=== PATIENT | female | born 1950 | race Asian ===

== ENCOUNTER 2019-12-26 21:17 | Emergency (ER) | payer BC, SELFPAY ==
[2019-12-26 21:28] VITALS: BP 153/61; PULSE 67; RESP 16; TEMP 36.4; O2SAT 98
--- NOTE | 2019-12-26 22:02 | ED.GENADULT ---
HPI - General Adult General Chief complaint: Skin/Abscess/Foreign Body Stated complaint: whole body itching Time Seen by Provider: 12/26/19 21:20 History of Present Illness HPI narrative: Patient is a 69-year-old female who presents ER with complaint of skin itching. For last 2 weeks she has had significant itching to her upper extremities/chest/back. Associate with a dry scaling rash that is prominent in her antecubital fossa as well as other areas of the extremities. She has excoriations. She was initially started on hydroxyzine. After that did not work she used a Medrol Dosepak. Last dose was today and the itching came back worse. No fevers or chills or sweats. No bug bites. She uses Tide as a laundry detergent. She denies any other use of lotions with perfumes or topical dyes. No known allergies. Related Data Allergies Allergy/AdvReac Type Severity Reaction Status Date / Time No Known Allergies Allergy Verified 12/26/19 21:31 Review of Systems Review of Systems: All systems reviewed & are unremarkable except as noted in HPI and below Constitutional: Constitutional: Denies chills, Denies fever(s) and Denies weakness ENT: Denies nasal congestion and Denies sore throat Integumentary/Breasts: Skin/Breast: Reports pruritus, Reports erythema, Reports rash and Denies skin ulcer PMFSH Past Medical History Medical History (Updated 12/26/19 @ 22:19 by Yandel Carrillo MD) Healthy female adult Surgical History Surgical History (Updated 12/26/19 @ 22:13 by Yandel Carrillo MD) No history of previous surgery Social History Social History (Updated 12/26/19 @ 22:13 by Yandel Carrillo MD) Smoking status: Never smoker Gender identity (if verbalized by the patient): Female Exam Narrative: Exam Narrative: GENERAL: Well-appearing, well-nourished, and in no acute distress. HEAD: Normocephalic, atraumatic. ENT: Mucous membranes moist.. CHEST: Clear to auscultation. No respiratory distress. HEART: Regular rate and rhythm. Normal peripheral pulses. EXTREMITIES: Normal range of motion. No edema. SKIN: Warm, dry. Dry scaling maculopapular rash across upper extremities/chest and back. Excoriations noted. No pustules or vesicles. NEURO: Alert and oriented x3. Course Course Emergency Course: In the recommend patient avoid detergents and fabric softeners that may contain dyes or fragrances. Recommend switching. Free clear type brand. Also recommend daily allergy pill with Pepcid and topical Aquaphor. Recommend follow-up with dermatology. Vital Signs Vital signs: Vital Signs Temperature 97.5 F L 12/26/19 21:28 Pulse Rate 67 12/26/19 21:28 Respiratory Rate 16 12/26/19 21:28 Blood Pressure 153/61 H 12/26/19 21:28 Pulse Oximetry 98 12/26/19 21:28 Temperature 97.5 F L 12/26/19 21:28 Pulse Rate 67 12/26/19 21:28 Respiratory Rate 16 12/26/19 21:28 Blood Pressure 153/61 H 12/26/19 21:28 Pulse Oximetry 98 12/26/19 21:28 Medical Decision Making Vital Signs Vital Signs: Vital Signs Temperature 97.5 F L 12/26/19 21:28 Pulse Rate 67 12/26/19 21:28 Respiratory Rate 16 12/26/19 21:28 Blood Pressure 153/61 H 12/26/19 21:28 Pulse Oximetry 98 12/26/19 21:28 Temperature 97.5 F L 12/26/19 21:28 Pulse Rate 67 12/26/19 21:28 Respiratory Rate 16 12/26/19 21:28 Blood Pressure 153/61 H 12/26/19 21:28 Pulse Oximetry 98 12/26/19 21:28 Discharge Plan Discharge Clinical Impression: Atopic contact dermatitis Patient Disposition: Home, Self-Care Condition: Stable Instructions: Eczema (ED) Additional Instructions: Return the ER if you have chest pain or shortness of breath, you cannot breathe, you cannot swallow, you have additional concerns. Please stop using any laundry detergents or fabric softeners that contain dye or fragrances. You should try brand such as All Free and clear. Additionally, apply Aquaphor ointment to extremities t
== END 2019-12-26 22:43 | disposition home or self-care (01) ==
PROVIDERS: Emergency Provider Emergency Medicine
DX: L20.9 Atopic dermatitis, unspecified (principal)
CPT/HCPCS: 99283

== ENCOUNTER 2023-11-16 11:00 | Emergency (ER) | payer MEDICARE, SELFPAY ==
--- NOTE | ~2023-11-16 | XR_ITS ---
EXAMINATION: XR humerus LT DATE: 11/16/2023 12:29 INDICATION: Left arm pain. Fall. TECHNIQUE: 2 views of left humerus were obtained. COMPARISON: None. FINDINGS: There is a fracture of greater tuberosity of proximal left humerus with 4 mm displacement. Joint spaces are normal. IMPRESSION: 1. One-part fracture of proximal left humerus. Reviewed, dictated and finalized at location A.
[2023-11-16 11:08] VITALS: BP 122/73; PULSE 72; RESP 17; TEMP 36.3; O2SAT 96
--- NOTE | 2023-11-16 12:52 | ED.FALL ---
HPI - Fall General Chief Complaint: Fall Stated Complaint: fall, arm pain Time Seen by Provider: 11/16/23 12:28 History of Present Illness [facility] Narrative: This is a 73-year-old otherwise healthy female who presents to the emergency department for a chief complaint of left arm pain. She states that she was caring things around yesterday when she accidentally tripped and fell forward. She landed striking her left shoulder against the ground. She had significant amount of bruising after this happened and limited range of motion with difficulty abducting and flexing the shoulder forward. She has good range of motion of the elbow knee able to flex and extend with good combat engineer strength and equal sensation, strength. Denies any head trauma or loss of consciousness. No nausea, vomiting, chest pain, shortness a breath, abdominal pain, back pain. Related Data Allergies Allergy/AdvReac Type Severity Reaction Status Date / Time No Known Allergies Allergy Verified 12/26/19 21:31 Review of Systems Review of Systems: As reviewed above in HPI [facility] Past Medical History Medical History Healthy female adult Surgical History Surgical History No history of previous surgery Social History Social History Smoking status: Never smoker Gender identity (if verbalized by the patient): Female Exam Narrative: GENERAL: [Well-appearing, well-nourished, and in no acute distress.] HEAD: [Normocephalic, atraumatic.] EYES: [PERRLA and EOMI.] ENT: Nares clear, no rhinorrhea or epistaxis. Mucous membranes moist. NECK: Supple. CHEST: [Clear to auscultation. No respiratory distress.] HEART: [Regular rate and rhythm]. No murmur heard. [Normal peripheral pulses.] ABDOMEN: [Soft, nondistended], [nontender], [No rigidity or guarding] EXTREMITIES: The left shoulder has a small minor deformity in the left lateral aspect of the proximal humerus. No skin breakdown or open fracture. There is a significant amount of bruising on the inner aspect of her left upper extremity is the arm. Full range of motion of the elbow and wrist. Able to oppose each digit and raise her thumb. Full combat engineer strength bilaterally. Abduction and flexion at the shoulder is limited secondary to pain. No spinal tenderness. No bony tenderness along the elbow. SKIN: Warm, dry, no rash. NEURO: [No focal deficits]. Alert and oriented [x3.] No sensory deficits in the left upper extremity. PSYCH: [Normal mood and affect.] Course Vital Signs Vital signs: Vital Signs Temperature 36.3 C L 11/16/23 11:08 Pulse Rate 72 11/16/23 11:08 Respiratory Rate 17 11/16/23 11:08 Blood Pressure 122/73 11/16/23 11:08 Pulse Oximetry 96 11/16/23 11:08 Oxygen Delivery Room Air 11/16/23 11:08 Temperature 36.3 C L 11/16/23 11:08 Pulse Rate 72 11/16/23 11:08 Respiratory Rate 17 11/16/23 11:08 Blood Pressure 122/73 11/16/23 11:08 Pulse Oximetry 96 11/16/23 11:08 Oxygen Delivery Room Air 11/16/23 11:08 Procedures Orthopedic Splinting/Casting Injury #1: Splinting/Casting Date: 11/16/23 Splinting/Casting Time: 13:25 Side: left Upper Extremity Injury Location: shoulder Upper Extremity Immobilizer: sling/shoulder immobilizer and sugar tong splint Splint: customized in ED Pre-Procedure Neuro Vascular Exam: normal Post-Procedure Neuro Vascular Exam: normal Additional Comments: Intact neurovascular before and after by my assessment. MDM - Fall MDM Narrative Medical decision making narrative: This is a 73-year-old female presenting for a ground level mechanical fall with left-sided shoulder trauma. She sustained an obvious injury to her left upper extremity with limited range of motion and a potential closed fract
[2023-11-16] MEDS: HYDROcodone/acetaminophen (*CRX) 5-325 MG TABLET 1 TAB PO (13:03)
--- NOTE | 2023-11-16 13:26 | PC.NURSE ---
Dr. Cerda at bedside, confirming splint placement.
[2023-11-16 13:49] VITALS: BP 124/77; PULSE 68; RESP 18; TEMP 36.5; O2SAT 100
== END 2023-11-16 13:49 | disposition home or self-care (01) ==
PROVIDERS: Emergency Provider Student in an Organized Health Care Education/Training Program
DX: S42.202A Unspecified fracture of upper end of left humerus, initial encounter for closed fracture (principal); W18.30XA Fall on same level, unspecified, initial encounter
CPT/HCPCS: 24500; 73060; 99284; A4565; A9270

== ENCOUNTER 2023-11-27 13:49 | Outpatient (CLI) | payer MEDICARE, SELFPAY ==
--- NOTE | ~2023-11-27 | XR_ITS ---
XR shoulder LT min 2V Ordering provider: Gab Young MD History: . F/UP Displaced fracture of greater tuberosity . Comparison: November 16, 2023 FINDINGS: BONES: Fracture in the greater tuberosity of the humerus. No other fractures seen. JOINT SPACES: The acromioclavicular joint is normal. The glenohumeral joint is normal. SOFT TISSUES: Normal. IMPRESSION: Fracture of the greater tuberosity of the humerus unchanged from previous examination. Reviewed, dictated and finalized at location A. IMPRESSION: Fracture of the greater tuberosity of the humerus unchanged from previous exami [facility].
== END 2023-11-27 13:50 | disposition home or self-care (01) ==
PROVIDERS: Visit Provider Orthopaedic Surgery
DX: S42.252D Displaced fracture of greater tuberosity of left humerus, subsequent encounter for fracture with routine healing (principal); X58.XXXD Exposure to other specified factors, subsequent encounter
CPT/HCPCS: 73030

== ENCOUNTER 2023-12-25 12:27 | Outpatient (CLI) | payer MEDICARE, SELFPAY ==
--- NOTE | ~2023-12-25 | XR_ITS ---
XR shoulder LT min 2V Ordering provider: Gab Young MD History: . S42.253A - Displaced fracture of greater tuberosity of un... . Comparison: November 27, 2023 FINDINGS: BONES: Healing fracture in the humerus greater tuberosity is noted. JOINT SPACES: The acromioclavicular joint is normal. The glenohumeral joint is normal. SOFT TISSUES: Normal. IMPRESSION: Healing fracture in the humeral greater tuberosity. No change in alignment. Reviewed, dictated and finalized at location A.
== END 2023-12-25 12:28 | disposition home or self-care (01) ==
LOC: ANHIMG 12:36
PROVIDERS: Visit Provider Orthopaedic Surgery
DX: S42.252D Displaced fracture of greater tuberosity of left humerus, subsequent encounter for fracture with routine healing (principal); X58.XXXD Exposure to other specified factors, subsequent encounter
CPT/HCPCS: 73030

== ENCOUNTER 2024-10-28 11:12 | Inpatient (IN) | payer MEDICARE, SELFPAY ==
[2024-10-28] VITALS (10 sets, daily range): BP systolic 124–143; BP diastolic 45–72; PULSE 54–75; RESP 14–18; TEMP 36.4–37; O2SAT 92–99; BMI 24.6
--- NOTE | ~2024-10-28 | XR_ITS ---
EXAMINATION: XR knee LT 3V DATE: 10/28/2024 13:27 INDICATION: Possible tibial fracture. Fall TECHNIQUE: 3 images of the left knee were obtained COMPARISON: Left femur x-ray 10/28/2024 FINDINGS: No fracture. No dislocation. Tiny suprapatellar effusion. Mild soft tissue swelling about the left knee. Mild tricompartment joint space narrowing. IMPRESSION: 1. No fracture identified. Reviewed, dictated and finalized at location A. IMPRESSION: 1. No fracture identified.
--- NOTE | ~2024-10-28 | XR_ITS ---
EXAMINATION: XR surgery orthopedic DATE: 10/30/2024 13:46 INDICATION: Left hip intertrochanteric nailing TECHNIQUE: 4 fluoroscopic images of the left hip and proximal to mid femur were obtained during procedure performed by Dr. Patel. Radiologist was not present for the imaging or procedure. The amount of fluoroscopy time used during this procedure was 2.4 minutes. Total DAP was 6.1997 mGym^2. COMPARISON: None. FINDINGS: Previously seen the basicervical fracture of the proximal femurs. Reduced to essentially anatomic alignment. Fractures fixed with an antegrade intramedullary magi with femoral neck and with compression screw and distal interlocking screw. Mild to moderate osteoarthritis at the left hip. No other fractures identified. IMPRESSION: 1. . Fluoroscopy utilized during internal fixation of an basicervical fracture of the proximal femur which is in essentially anatomic alignment Reviewed, dictated and finalized at location A.
--- NOTE | ~2024-10-28 | XR_ITS ---
EXAMINATION: XR hip LT 2V w AP pelvis DATE: 10/28/2024 12:29 INDICATION: Fall TECHNIQUE: 3 images of the left hip were obtained COMPARISON: None. FINDINGS: Mildly displaced intertrochanteric fracture of the proximal left femur. Questionable nondisplaced subcapital fracture of the left femoral head. However, the finding may be artifactual due to overlapping structures or a vascular channel. Bones appear to be. Mild degenerative change in the hips. IMPRESSION: 1. Mildly displaced intertrochanteric fracture of the proximal left femur. Consider a CT for further assessment. 2. Questionable nondisplaced subcapital fracture of the left femoral head. A CT is recommended for further assessment. Reviewed, dictated and finalized at location A. IMPRESSION: 1. Mildly displaced intertrochanteric fracture of the proximal left femur. Cons ider a CT for further assessment. 2. Questionable nondisplaced subcapital fracture of the left femoral head. A CT is recommended for further assessment.
--- NOTE | ~2024-10-28 | XR_ITS ---
EXAM/ PROCEDURE: XR wrist LT min 3V - 10/28/2024 12:18 CDT HISTORY: 74 years old Female with fall COMPARISON: None. TECHNIQUE: Three view(s) FINDINGS/ IMPRESSION: Acute displaced fracture of the distal radius with posterior displacement of the distal fracture segment. Minimally displaced fracture of the ulnar styloid process. Surrounding soft tissue swelling. Joint space narrowing, subchondral sclerosis, subchondral cyst formation and osteophyte formation, compatible with moderate osteoarthritis. Reviewed, dictated and finalized at location A.
--- NOTE | ~2024-10-28 | CT_ITS ---
EXAM: CT pelvis wo con - 10/28/2024 13:05 CDT History: 74 years old Female with fall TECHNIQUE: Multidetector CT of the pelvis without contrast. Coronal and sagittal reformats were also provided for review. Automatic exposure control was used for this study. COMPARISON: None Available. FINDINGS: MUSCULOSKELETAL: Multilevel degenerative changes of the spine. Minimally displaced intertrochanteric fracture of the left femur with mild anterior angulation. URINARY BLADDER: Within normal limits. VISUALIZED BOWEL: No abnormal bowel wall thickening. No obstruction. REPRODUCTIVE ORGANS: Within normal limits. MESENTERY/PERITONEAL CAVITY: No free fluid or pneumoperitoneum. LYMPH NODES: No abdominal or pelvic lymphadenopathy. ABDOMINAL WALL: Within normal limits. VASCULATURE: Within normal limits. IMPRESSION: Minimally displaced intertrochanteric fracture of the left femur with mild anterior angulation. Reviewed, dictated and finalized at location A. IMPRESSION: Minimally displaced intertrochanteric fracture of the left femur with mild ante rior angulation.
--- NOTE | ~2024-10-28 | XR_ITS ---
EXAMINATION: XR wrist LT 2V DATE: 10/28/2024 15:21 INDICATION: Post splint placement TECHNIQUE:2 images of the left wrist were obtained. COMPARISON: 10/28/2024 FINDINGS: Casting material is present which obscures fine bony detail. Soft tissue swelling about the left wrist. Mildly displaced avulsion fracture of the ulnar styloid process. Mildly displaced and comminuted intra-articular fracture of the distal left radius. Alignment is near-anatomic. IMPRESSION: 1. Fractures of the left radius and left ulna as detailed above. Reviewed, dictated and finalized at location A.
--- NOTE | ~2024-10-28 | XR_ITS ---
EXAM/PROCEDURE: XR chest 1V - 10/28/2024 12:25 CDT HISTORY: 74 years old Female with PAIN FALL TECHNIQUE: Two view(s) of the chest. COMPARISON: None available. FINDINGS: LUNGS/ PLEURA: No focal consolidation. No appreciable pneumothorax or large pleural effusion. HEART/ MEDIASTINUM: Heart appears normal in size. BONES: Degenerative changes. OTHER: Visualized upper abdomen is unremarkable. IMPRESSION: No acute process. Reviewed, dictated and finalized at location A. IMPRESSION: No acute process.
--- NOTE | ~2024-10-28 | XR_ITS ---
EXAMINATION: XR surgery orthopedic DATE: 10/30/2024 15:32 INDICATION: ORIF left wrist fracture TECHNIQUE: 3 fluoroscopic images of the left wrist were obtained during procedure performed by Dr. Patel. Radiologist was not present for the imaging or procedure. The amount of fluoroscopy time used during this procedure was 6.9 minutes. Total DAP was 2.219 mGym^2. COMPARISON: 10/28/2024 FINDINGS: Interval reduction to near-anatomic alignment of an extra articular fracture of the distal left radius neutral tilt of the distal articular surface. The fracture is fixed with a volar T plate and screws. Unfixed avulsion fracture across the base of the ulnar styloid process which remains in essentially anatomic alignment. 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 There is suggestion of some cystic change at the ulnar side of the proximal lunate which could represent sequela of prior ulnocarpal impaction. IMPRESSION: 1. Fluoroscopy utilized during internal fixation of an extra articular fracture of the distal left radius which is now in near-anatomic alignment. 2. Unfixed ulnar styloid avulsion fracture which remains in essentially anatomic alignment. Reviewed, dictated and finalized at location A. IMPRESSION: 1. Fluoroscopy utilized during internal fixation of an extra articular fracture of the distal left radius which is now in near-anatomic alignment. 2. Unfixed ulnar styloid avulsion fracture which remains in essentially anatomi c alignment.
--- NOTE | ~2024-10-28 | XR_ITS ---
Clinical history:Fall EXAM:X-ray femur left minimum 2 views TECHNIQUE:4 images of the left femur were obtained Comparisons:Left hip x-ray 10/28/2024 FINDINGS: Mildly displaced intertrochanteric fracture of the proximal left femur. Questionable nondisplaced subcapital fracture of the left femoral head. However, the finding may be artifactual due to overlapping structures or a vascular channel. Bones appear osteopenic. Mild degenerative change in the left hip. Oblique lucency in the proximal left tibia. Differential includes vascular channel or acute nondisplaced fracture. Correlate for point tenderness. Consider dedicated x-rays of the left knee for further assessment. IMPRESSION: 1. Mildly displaced intertrochanteric fracture of the proximal left femur. Consider a CT for further assessment. 2. Questionable nondisplaced subcapital fracture of the left femoral head. A CT is recommended for further assessment. 3. Oblique lucency in the proximal left tibia. Differential includes vascular channel or acute nondisplaced fracture. Correlate for point tenderness. Consider dedicated x-rays of the left knee for further assessment. Reviewed, dictated and finalized at location A. IMPRESSION: 1. Mildly displaced intertrochanteric fracture of the proximal left femur. Cons ider a CT for further assessment. 2. Questionable nondisplaced subcapital fracture of the left femoral head. A CT is recommended for further assessment. 3. Oblique lucency in the proximal left tibia. Differential includes vascular c hannel or acute nondisplaced fracture. Correlate for point tenderness. Consider dedicated x-rays of the left knee for further assessment.
--- NOTE | ~2024-10-28 | CT_ITS ---
EXAM: CT brain wo con - 10/28/2024 13:05 CDT History: 74 years old Female with fall COMPARISON: None available. PROCEDURE: CT of the head without contrast. Axial, sagittal and coronal reformatted planes were evaluated. Automatic exposure control was used for this study. FINDINGS: Evaluation is limited secondary to artifact caused by the patient's motion. BRAIN PARENCHYMA: No acute hemorrhage. No mass effect or herniation. Preciado-white matter differentiation is maintained. Calcifications in bilateral basal ganglia, likely physiologic. Mild chronic volume loss. Scattered hypodensities in subcortical and periventricular white matter, likely representing chronic microvascular ischemic changes in this age group. Atherosclerotic calcification of the intracranial vessels is noted. VENTRICLES/ EXTRA-AXIAL SPACES: No hydrocephalus or extra-axial fluid collection. EXTRACRANIAL STRUCTURES: No calvarial fracture. IMPRESSION: 1. No evidence for acute intracranial hemorrhage or calvarial fracture. 2. Chronic findings, as above. Reviewed, dictated and finalized at location A.
--- NOTE | 2024-10-28 12:49 | ED.LOWEXIN ---
HPI - Extremity Injury (Lower) General Chief Complaint: Extremity Injury, Lower <Alivia Jacob PA-C - Last Filed: 10/28/24 19:16> Stated Complaint: hip injury/fall <FANY Ruff Last Filed: 10/28/24 19:16> Time Seen by Provider: 10/28/24 11:51 <Alivia Jacob PA-C - Last Filed: 10/28/24 19:16> Source: patient and EMS <Alivia Jacob PA-C - Last Filed: 10/28/24 19:16> Mode of arrival: EMS <FANY Ruff Last Filed: 10/28/24 19:16> Limitations: no limitations <FANY Ruff Last Filed: 10/28/24 19:16> History of Present Illness HPI Narrative: This is a 74-year-old female that presents to the emergency department after a fall today with left hip and wrist injuries. Reports she was changing a light bulb on top a chair. Fell onto her left side. She does not believe she hit her head. She did not lose consciousness. Reports pain of the left hip and wrist. Denies vomiting, focal numbness, weakness. <FANY Ruff Last Filed: 10/28/24 19:16> Related Data Home Medications: Home Medications ?Medication ?Instructions ?Recorded ?Confirmed ?Last Taken ?Type Centrum Multivitamin k2-d3 50 mcg PO DAILY 06/09/24 10/28/24 10/28/24 History magnesium 200 mg tablet 200 mg PO DAILY 10/28/24 10/28/24 10/27/24 History <FANY Ruff Last Filed: 10/28/24 19:16> Allergies/Adverse Reactions: Allergies Allergy/AdvReac Type Severity Reaction Status Date / Time No Known Allergies Allergy Verified 10/28/24 12:51 <FANY Ruff Last Filed: 10/28/24 19:16> Review of Systems Review of Systems: All systems reviewed & are unremarkable except as noted in HPI and below <FANY Ruff Last Filed: 10/28/24 19:16> PMFSH Past Medical History Medical History: Medical History History of humerus fracture Hypothyroidism Anxiety <Alivia Jacob PA-C - Last Filed: 10/28/24 19:16> Surgical History Surgical History: Surgical History No history of previous surgery <Alivia Jacob PA-C - Last Filed: 10/28/24 19:16> Family History Family History: Family History Mother Heart problem <FANY Ruff Last Filed: 10/28/24 19:16> Social History Social History: Social History Smoking status: Never smoker Alcohol intake: never Substance use: never Substance use type: does not use Do You Feel Safe in your Home?: Yes Lack of Transportation: No Lack of Food: Never True Current Housing: I Have Housing Concerned About Future Housing: No Difficulty Paying Gas/Electric Bills: No Difficulty Paying for Meds: No Currently Unemployed: No Education: Associate Degree Difficulty w/ Childcare or Family Care: No Gender identity (if verbalized by the patient): Female Spiritual care concerns: No <Alivia Jacob PA-C - Last Filed: 10/28/24 19:16> Exam Narrative: GENERAL: Well-appearing, well-nourished, and in no acute distress. HEAD: Normocephalic, atraumatic. EYES: PERRLA and EOMI. ENT: Nares clear, no rhinorrhea or epistaxis. Mucous membranes moist. Oropharynx without tonsillar hypertrophy exudate or other lesions. Bilateral TMs pearly novoa non-bulging NECK: Supple. No adenopathy or masses. No midline spinal tenderness CHEST: Clear to auscultation. No respiratory distress. No wheezes rales or rhonchi HEART: Regular rate and rhythm. No murmur heard. Normal peripheral pulses. ABDOMEN: Soft, nontender, nondistended, normal active bowel sounds. EXTREMITIES: Normal range of motion, except decreased active ROM in the left wrist and hip. Mild edema about the left wrist. Normal radial and DP pulses SKIN: Warm, dry, no rash. NEURO: No focal deficits. Alert and oriented x3. Cranial nerves 2-12 grossly intact PSYCH: Normal mood and affect <Alivia Jacob PA-C - Last Filed: 10/28/24 19:16> Course TYPING OFFICE WORKER/PA Physician Supervision i did reviewed the chart ,discussed the management <Kevin Collins MD - Last Filed: 10/28/24 21:21> Consultations Consultation #1: Spoke with Dr. Patel who will consult <Alivia Jacob PA-C - Last Filed: 10/28/24 19:16> Date: 10/28/24 <Alivia Jacob PA-C - Last Filed: 10/28/24 19:16> Consultation #2: Spoke with hospitalist about patient workup who accepts admission <Alivia Jacob PA-C - Last Filed: 10/28/24 19:16> Date: 10/28/24 <Alivia Jacob PA-C - Last Filed: 10/28/24 19:16> Vital Signs Vital signs: Vital Signs Temperature 36.4 C 10/28/24 11:09 Pulse Rate 54 L 10/28/24 11:09 Respiratory Rate 16 10/28/24 11:09 Blood Pressure 124/57 L 10/28/24 11:09 Pulse Oximetry 96 10/28/24 11:09 Temperature 37.0 C 10/28/24 17:24 Pulse Rate 72 10/28/24 17:24 Respiratory Rate 18 10/28/24 17:24 Blood Pressure 132/45 L 10/28/24 17:24 Pulse Oximetry 94 10/28/24 17:48 Oxygen Delivery Nasal Cannula 10/28/24 17:48 Oxygen Flow Rate 2 10/28/24 17:48 <Alivia Jacob PA-C - Last Filed: 10/28/24 19:16> Vital Signs Temperature 36.4 C 10/28/24 11:09 Pulse Rate 54 L 10/28/24 11:09 Respiratory Rate 16 10/28/24 11:09 Blood Pressure 124/57 L 10/28/24 11:09 Pulse Oximetry 96 10/28/24 11:09 Temperature 37.0 C 10/28/24 17:24 Pulse Rate 72 10/28/24 17:24 Respiratory Rate 18 10/28/24 17:24 Blood Pressure 132/45 L 10/28/24 17:24 Pulse Oximetry 94 10/28/24 17:48 Oxygen Delivery Nasal Cannula 10/28/24 17:48 Oxygen Flow Rate 2 10/28/24 17:48 <Kevin Collins MD - Last Filed: 10/28/24 21:21> Procedures Orthopedic Fracture Reduction Fracture #1: Fracture Reduction date: 10/28/24 <Alivia Jacob PA-C - Last Filed: 10/28/24 19:16> Side: left <Alivia Jacob PA-C - Last Filed: 10/28/24 19:16> Analgesia: other (fentanyl) <FANY Ruff Last Filed: 10/28/24 19:16> Pre-Procedure Neuro Vascular Exam: normal <FANY Ruff Last Filed: 10/28/24 19:16> Technique: direct manipulation <Alivia Jacob PA-C - Last Filed: 10/28/24 19:16> Post Reduction X-rays Demonstrate: anatomical reduction <Alivia Jacob PA-C - Last Filed: 10/28/24 19:16> Post-reduction neuro exam: intact <FANY Ruff Last Filed: 10/28/24 19:16> Post-reduction vascular exam: intact <Alivia Jacob PA-C - Last Filed: 10/28/24 19:16> Splint Applied: Yes <FANY Ruff Last Filed: 10/28/24 19:16> Patient Tolerated Procedure: well and no complications <FANY Ruff Last Filed: 10/28/24 19:16> MDM - Extremity Injury (Lower) MDM Narrative Medical decision making narrative: Patient presents to the emergency department after a fall off of a chair today with left hip and wrist pain. She is neurologically intact. Her vitals are stable. Patient did require some oxygen after IV narcotic pain medication. CBC and metabolic panel without concerning findings. CT brain without acute findings. Hip x-ray shows mildly displaced intertrochanteric fracture. Wrist x-ray shows distal radius and ulna fractures. This was reduced with near anatomical alignment. Patient placed in a splint. Patient was offered transfer to trauma center which she declined. Spoke with Dr. Patel about patient and workup. Surgery would likely be Saturday. Spoke with hospitalist about patient and workup who accepts admission <Alivia Jacob PA-C - Last Filed: 10/28/24 19:16> Differential Diagnosis Differential diagnosis: Likely other (Hip fracture, wrist fracture, contusion) <Alivia Jacob PA-C - Last Filed: 10/28/24 19:16> Lab Data Attestation: I reviewed the patient's lab results. <Alivia Jacob PA-C - Last Filed: 10/28/24 19:16> Result diagrams: 10/28/24 12:56 10/28/24 12:56 <FANY Ruff Last Filed: 10/28/24 19:16> Labs: Lab Results 10/28/24 Range/Units 12:56 WBC 10.8 H (4.5-10.0) K/mm3 RBC 4.20 (4.2-5.4) M/mm3 Hgb 13.2 (12.0-15.0) g/dL Hct 39.4 (37.0-47.0) % MCV 93.8 (80-100) fl MCH 31.4 (26-34) pg MCHC 33.5 (32-36) g/dl RDW 12.6 (11.5-14.5) % Plt Count 153 (150-375) k/mm3 MPV 9.9 (7.4-10.4) fl Immature Gran % (Auto) 0.6 H (0-0.5) % Neut % (Auto) 89.4 H (45.5-73.1) % Lymph % (Auto) 5.6 L (18.3-44.2) % [place] % (Auto) 4.3 (2.6-8.5) % Eos % (Auto) 0.0 (0-4.4) % Baso % (Auto) 0.1 L (0.2-1.2) % Lymph # (Auto) 0.61 L (0.9-3.2) K/mm3 [place] # (Auto) 0.5 (0.1-0.6) K/mm3 Eos # (Auto) 0.0 (0-0.3) K/mm3 Baso # (Auto) 0.0 (0.0-0.1) K/mm3 Abs Immat Gran (auto) 0.07 H (0.00-0.031) K/mm3 Absolute Neuts (auto) 9.7 H (1.3-6.7) K/mm3 Absolute Nucleated RBC 0.000 (0.0-0.012) K/mm3 Nucleated RBC % 0.0 (0.0-0.2) % Sodium 136 L (137-145) mmol/L Potassium 3.8 (3.4-5.0) mmol/L Chloride 105 (98-107) mmol/L Carbon Dioxide 23 (22-30) mmol/L Anion Gap 8 (4-12) mmol/L BUN 17 (7-17) mg/dL Creatinine 0.58 L (0.7-1.0) mg/dL Estim Creat Clear Calc 59 ml/min Estimated GFR > 60 (59 - ) Glucose 116 H (65-110) mg/dL Calcium 8.7 (8.4-10.2) mg/dL Total Bilirubin 0.8 (0.2-1.3) mg/dL AST 26 (14-36) U/L ALT 19 (6-35) U/L Alkaline Phosphatase 90 (38-126) U/L Total Protein 6.9 (6.3-8.2) g/dL Albumin 4.0 (3.5-5.1) g/dL <Alivia Jacob PA-C - Last Filed: 10/28/24 19:16> Lab Results 10/28/24 Range/Units 12:56 WBC 10.8 H (4.5-10.0) K/mm3 RBC 4.20 (4.2-5.4) M/mm3 Hgb 13.2 (12.0-15.0) g/dL Hct 39.4 (37.0-47.0) % MCV 93.8 (80-100) fl MCH 31.4 (26-34) pg MCHC 33.5 (32-36) g/dl RDW 12.6 (11.5-14.5) % Plt Count 153 (150-375) k/mm3 MPV 9.9 (7.4-10.4) fl Immature Gran % (Auto) 0.6 H (0-0.5) % Neut % (Auto) 89.4 H (45.5-73.1) % Lymph % (Auto) 5.6 L (18.3-44.2) % [place] % (Auto) 4.3 (2.6-8.5) % Eos % (Auto) 0.0 (0-4.4) % Baso % (Auto) 0.1 L (0.2-1.2) % Lymph # (Auto) 0.61 L (0.9-3.2) K/mm3 [place] # (Auto) 0.5 (0.1-0.6) K/mm3 Eos # (Auto) 0.0 (0-0.3) K/mm3 Baso # (Auto) 0.0 (0.0-0.1) K/mm3 Abs Immat Gran (auto) 0.07 H (0.00-0.031) K/mm3 Absolute Neuts (auto) 9.7 H (1.3-6.7) K/mm3 Absolute Nucleated RBC 0.000 (0.0-0.012) K/mm3 Nucleated RBC % 0.0 (0.0-0.2) % Sodium 136 L (137-145) mmol/L Potassium 3.8 (3.4-5.0) mmol/L Chloride 105 (98-107) mmol/L Carbon Dioxide 23 (22-30) mmol/L Anion Gap 8 (4-12) mmol/L BUN 17 (7-17) mg/dL Creatinine 0.58 L (0.7-1.0) mg/dL Estim Creat Clear Calc 59 ml/min Estimated GFR > 60 (59 - ) Glucose 116 H (65-110) mg/dL Calcium 8.7 (8.4-10.2) mg/dL Total Bilirubin 0.8 (0.2-1.3) mg/dL AST 26 (14-36) U/L ALT 19 (6-35) U/L Alkaline Phosphatase 90 (38-126) U/L Total Protein 6.9 (6.3-8.2) g/dL Albumin 4.0 (3.5-5.1) g/dL <Kevin Collins MD - Last Filed: 10/28/24 21:21> Imaging Data Radiologist's impression: ITS Impressions Femur X-Ray 10/28/24 12:32 IMPRESSION: 1. Mildly displaced intertrochanteric fracture of the proximal left femur. Consider a CT for further assessment. 2. Questionable nondisplaced subcapital fracture of the left femoral head. A CT is recommended for further assessment. 3. Oblique lucency in the proximal left tibia. Differential includes vascular channel or acute nondisplaced fracture. Correlate for point tenderness. Consider dedicated x-rays of the left knee for further assessment. Hip/Pelvis X-Ray 10/28/24 12:33 IMPRESSION: 1. Mildly displaced intertrochanteric fracture of the proximal left femur. Consider a CT for further assessment. 2. Questionable nondisplaced subcapital fracture of the left femoral head. A CT is recommended for further assessment. Chest X-Ray 10/28/24 12:36 IMPRESSION: No acute process. Head CT 10/28/24 13:14 IMPRESSION: 1. No evidence for acute intracranial hemorrhage or calvarial fracture. 2. Chronic findings, as above. Pelvis CT 10/28/24 13:18 IMPRESSION: Minimally displaced intertrochanteric fracture of the left femur with mild anterior angulation. Knee X-Ray 10/28/24 13:33 IMPRESSION: 1. No fracture identified. INDICATION: Post splint placement TECHNIQUE:2 images of the left wrist were obtained. COMPARISON: 10/28/2024 FINDINGS: Casting material is present which obscures fine bony detail. Soft tissue swelling about the left wrist. Mildly displaced avulsion fracture of the ulnar styloid process. Mildly displaced and comminuted intra-articular fracture of the distal left radius. Alignment is near-anatomic. IMPRESSION: 1. Fractures of the left radius and left ulna as detailed above. <Alivia Jacob PA-C - Last Filed: 10/28/24 19:16> Critical Care Time Critical Care Time Critical Care Time: No <Alivia Jacob PA-C - Last Filed: 10/28/24 19:16> Discharge Plan Discharge Clinical Impression: Distal radial fracture Qualifiers: Encounter type: initial encounter Fracture type: closed Fracture morphology: unspecified fracture morphology Laterality: left Qualified Code(s): S52.502A - Unspecified fracture of the lower end of left radius, initial encounter for closed fracture Closed intertrochanteric fracture of left femur Qualifiers: Encounter type: initial encounter Fracture alignment: nondisplaced Qualified Code(s): S72.145A - Nondisplaced intertrochanteric fracture of left femur, initial encounter for closed fracture <Alivia Jacob PA-C - Last Filed: 10/28/24 19:16> Patient Disposition: Still a Patient <Alivia Jacob PA-C - Last Filed: 10/28/24 19:16> Condition: Stable <FANY Ruff Last Filed: 10/28/24 19:16>
[2024-10-28] MEDS: HYDROmorphone HCL INJ (*CRX) 1 MG/ML SYR 0.5 MG IV PUSH (12:53)
--- OUTSIDE RECORDS SUMMARY | 2024-10-28 12:57 | XMS_ITS | Clinical Summary ---
Author Organization [facility] Address [address], [facility] [address] [place] [address] Phone Care Team Providers Care Orchestrator Name Role Phone Nalini Tracy APRN, CNP Primary Care Provider Nicholas Mcgowan MD Unavailable Medications levothyroxine (SYNTHROID) 50 MCG Tablet Take 50 mcg by mouth daily. 06/07/2023 Active Multiple Vitamin (MULTIVITAMIN PO) Take by mouth daily. Active Zinc Sulfate (ZINCATE PO) Take 30 mg by mouth daily. Active B Complex Vitamins (B COMPLEX PO) Take by mouth daily. Active selenium 50 MCG Tablet Take by mouth daily. Active MAGNESIUM PO Take 360 mg by mouth daily. Active [place]-3 Fatty Acids (OMEGA 3 PO) Take by mouth daily. Active ibuprofen (MOTRIN) 600 MG Tablet TAKE 1 TABLET BY MOUTH THREE TIMES DAILY NEEDED FOR PAIN 11/16/2023 Active acetaminophen Extra Strength (TYLENOL) 500 MG Tablet TAKE 2 TABLETS BY MOUTH THREE TIMES DAILY NEEDED FOR PAIN 11/16/2023 Active VITAMIN D PO Take 50 mcg by mouth. Active Active Problems No known active problems Encounters Date Type Department Care Team Description 09/15/2024 8:15 AM CDT Office Visit [facility] [address] [phone] Norah Vargas APRN, CNP Thrombocytopenia (HCC) (Primary Dx) 09/15/2024 8:00 AM CDT Lab [facility] [address] [phone] Lab, [facility] Thrombocytopenia (HCC) 09/15/2024 Travel from Last 3 Months Family History Relation Name Status Comments Father Mother Social History Tobacco Use Types Packs/Day Years Used Date Smoking Tobacco: Never Smokeless Tobacco: Never Tobacco Cessation:Counseling Given: Not Answered Comments Unknown Sex and Gender Information Value Date Recorded Sex Assigned at Not on file Legal Sex Female 11:06 AM CDT Gender Identity Not on file Sexual Orientation Not on file Last Filed Vital Signs Vital Sign Reading Time Taken Comments Blood Pressure 122/70 09/15/2024 8:21 AM CDT Pulse 60 09/15/2024 8:21 AM CDT Temperature 36.7 C (98 F) 09/15/2024 8:21 AM CDT Respiratory Rate 18 09/15/2024 8:21 AM CDT Oxygen Saturation 96% 09/15/2024 8:21 AM CDT Inhaled Oxygen Concentration - - Weight 60.2 kg (132 lb 12.8 oz) 09/15/2024 8:21 AM CDT Height 171.5 cm (5' 7.5) 09/15/2024 8:21 AM CDT Body Mass Index 20.49 09/15/2024 8:21 AM CDT Plan of Treatment Upcoming Encounters Date Type Department Care Team (Late st Contact Info) Description 09/14/2025 8:00 AM CDT Lab [facility] [address] [id number] Lab, [facility] 09/14/2025 8:15 AM CDT Office Visit [facility] [address] [phone] Nicholas Mcgowan MD [address] [place] [id number] Health Maintenance Due Date Last Done Comments DEXA Bone Density 1950 Mammogram 1950 TdaP Immunization 1950 Cologuard 1997 Colonoscopy 1997 Colorectal Cancer Screening 1997 Immunochemical Fecal Occult Blood 1997 Zoster Immunization (2 of 3) 03/01/2015 01/04/2015 SARS-COV-2 Immunization ( season) 2023 02/26/2023, 06/01/2020, 05/04/2020 Influenza Immunization (#1) 11/09/202412/09, 01/15/2023, 01/09/2022, Additional history exists Respiratory Syncytial Virus (RSV) Immunization (Adult) (1 - 1-dose 75+ series) 2027 Pneumococcal Immunization (50+ years) Completed 02/28/2022, 02/03/2020, 12/31/2018 Hepatitis C Virus (HCV) Screening Completed 08/27/2023, 02/27/2021 Hepatitis B Immunization Aged Out No longer eligible based on patient's age to complete this topic Human Papillomavirus (HPV) Immunization Aged Out No longer eligible based on patient's age to complete this topic Meningococcal Immunization (ACWY) Aged Out No longer eligible based on patient's age to complete this topic Rotavirus Immunization Aged Out No lo nger eligible based on patient's age to complete this topic Procedures Procedure Name Priority Date/Time Associated Diagnosis Comments COMPLETE BLOOD COUNT (CBC) WITH DIFF Routine 09/15/2024 7:53 AM CDT Thrombocytopenia (HCC) HEPATITIS C ANTIBODY Routine 08/27/2023 11:13 AM CDT Thrombocytopenia (HCC) from Last 3 Months or Most Recently Relevant to Health Maintenance Results * COMPLETE BLOOD COUNT (CBC) WITH DIFF (09/15/2024 7:53 AM CDT) WBC 5.5 4.0 - 10.0 10*3/uL [facility] HGB 14.1 11.2 - 15.7 g/dL [facility] HCT 41.4 34.1 - 44.9 % [facility] PLT 178 163 - 369 10*3/uL [facility] MPV 9.6 9.4 - 12.4 fL [facility] RBC 4.45 3.93 - 5.22 10*6/uL [facility] MCV 93 79 - 95 fL [facility] MCH 31.7 25.6 - 32.2 pg [facility] MCHC 34.1 32.2 - 36.5 g/dL [facility] RDW 12.4 11.6 - 14.4 % [facility] Absolute Neutrophil Count 3,490 cells/uL [facility] Absolute Seg Count 3,490 1,440 - 6,600 cells/uL [facility] Absolute Lymph Count 1,717 760 - 4,000 cells/uL [facility] Absolute [place] Count 277 160 - 1,200 cells/uL [facility] Absolute Eos Count 55 0 - 300 cells/uL [facility] Segmented Neutrophils 63 36 - 66 % [facility] Lymphocytes 31 19 - 40 % [facility] Monocytes 5 4 - 12 % [facility] Eosinophils 1 0 - 3 % [facility] WBC Estimate Normal [facility] Platelet Estimate Normal [facility] RBC Morphology Normal [facility] Blood 09/15/2024 7:53 AM CDT Narrative [facility] 09/15/2024 9:51 AM CDT Release to patient->Immediate Norah Vargas APRN, JUVENILE COUNSELOR HEMATOLOGY ORDERABLES Final Result [facility] [place] [address], * HEPATITIS C ANTIBODY (08/27/2023 11:13 AM CDT) HEPATITIS C VIRUS AB SIGNAL CUTOFF NON REACTIVE NON REACTIVE [facility] HEPATITIS C VIRUS AB COMMENT [facility] Comment: NOT INFECTED WITH HCV UNLESS EARLY OR ACUTE INFECTION IS SUSPECTED (WHICH MAY BE DELAYED IN AN IMMUNOCOMPROMISED INDIVIDUAL), OR OTHER EVIDENCE EXISTS TO INDICATE HCV INFECTION. Blood 08/27/2023 11:1 3 AM CDT Narrative [facility] - 08/28/2023 8:36 AM CDT TESTING PERFORMED AT: [] [facility], [address], [place], [address], PHONE: [phone], BEDSPREAD SEAMER: MARIA DOLORES HANSEN, PHD Release to patient->Immediate Nicholas Mcgowan MD CHEMISTRY ORDERABLES Final Resul t [facility] [place] [address], from Last 3 Months or Most Recently Relevant to Health Maintenance [facility] Care Teams Orchestrator Relationship Specialty Start Date End Date Nalini Tracy, SALES COMMUNICATIONS MANAGER, JUVENILE COUNSELOR [address] [place] [phone] PCP - General Internal Medicine 07/31/23 Nicholas Mcgowan MD [address] [place] [phone] Consulting Physician Oncology 07/31/23
--- OUTSIDE RECORDS SUMMARY | 2024-10-28 12:57 | XMS_ITS | Clinical Summary ---
Author Organization [facility] Address [address] [place] [address] Care Team Providers Care Cd Mixer Helper Name Role Phone Unavailable Primary Care Provider Unavailabl e Source Comments [facility],non-owned Affiliates and Associated Physician Practices is amultiple site organization consisting of ambulatory clinics and hospital sitesin [place], [place], [place] and [place]. This disclosure is being madepursuant to the Care Everywhere program and may not contain all information available regarding this patient. Last updated 17.[facility] Allergies No known active allergies Immunizations Immunization Administration Dates Next Due INFLUENZA VACCINE, QUADR. (F LUZONE; FLULAVAL; FLUARIX; AFLURIA QUADRIVALENT; 6MO+), 0.5 ML (IIV4) 01/02/2017 Social History Tobacco Use Types Packs/Day Years Used Date Smoking Tobacco: Never Assessed Comments Unknown Sex and Gender Information Value Date Recorded Sex Assigned at Not on file Legal Sex Female 11:57 AM CDT Gender Identity Not on file Sexual Orientation Not on file Plan of Treatment Health Maintenance Due Date Last Done Comments BONE DENSITY TESTING 1950 COLOGUARD (AGES 45-75) - COL ON CA SCREENING 1952 COLON MONITORING 1952 COLONOSCOPY - COLON CA SCREENING 1952 CT COLONOGRAPHY - COLON CA SCREENING 1952 Colorectal Cancer Screening 1952 FIT - COLON CA SCREENING 1952 FLEX SIG - COLON CA SCREENING 1952 LIPID TESTING 1952 MAMMOGRAM 1952 HEPATITIS C SCREENING 04/21/1970 DTAP/TDAP/TD VACCINES (1 - Tdap) 1971 PNEUMOCOCCAL VACCINE 50+ (1 of 1 - PCV) 2002 ZOSTER VACCINE (1 of 2) 2002 COVID-19 VACCINE (2023-2 5 season) 2023 DEPRESSION SCREENING 03/11/2024 INFLUENZA VACCINE (#1) 2024 01/02/2017 Respiratory Syncytial Virus (RSV) Vaccine Pt: or over 60 yrs (1 - 1-dose 75+ series) 2027 HEPATITIS B VACCINE Aged Out No longe r eligible based on patient's age to complete this topic HIB VACCINE Aged Out No longer eligi ble based on patient's age to complete this topic HPV VACCINE Aged Out No longer eligi ble based on patient's age to complete this topic MENINGOCOCCAL (Group B) VACC INE SHARED DECISION-MAKING Aged Out No longer eligibl e based on patient's age to complete this topic MENINGOCOCCAL GROUPS A/C/Y/W VACCINE Aged Out No longer eligible b ased on patient's age to complete this topic Insurance
[2024-10-28 13:34] LABS: Hematocrit 39.4 % (37.0-47.0); Hemoglobin 13.2 g/dL (12.0-15.0); Immature Granulocyte Percent A 0.6 % (0-0.5); Lymphocytes Absolute Auto 0.61 K/mm3 (0.9-3.2); Mean Corpuscular HGB Conc 33.5 g/dl (32-36); Mean Corpuscular Hemoglobin 31.4 pg (26-34); Mean Corpuscular Volume 93.8 fl (80-100); Nucleated Red Blood Cells Absolute Auto 0.000 K/mm3 (0.0-0.012); Nucleated Red Blood Cells Perc 0.0 % (0.0-0.2); Platelet Count Result 153 k/mm3 (150-375); Red Blood Count 4.20 M/mm3 (4.2-5.4); White Blood Count 10.8 K/mm3 (4.5-10.0)
[2024-10-28 13:44] LABS: Alanine Aminotransferase 19 U/L (6-35); Albumin Level 4.0 g/dL (3.5-5.1); Alkaline Phosphatase 90 U/L (38-126); Anion Gap 8 mmol/L (4-12); Aspartate Amino Transferase 26 U/L (14-36); Bilirubin,Total 0.8 mg/dL (0.2-1.3); Blood Urea Nitrogen 17 mg/dL (7-17); Calcium 8.7 mg/dL (8.4-10.2); Carbon Dioxide 23 mmol/L (22-30); Chloride 105 mmol/L (98-107); Estimated CRCL calculation 59 ml/min; Estimated Glomerular Filt Rate > 60; Glucose 116 mg/dL (65-110); Potassium 3.8 mmol/L (3.4-5.0); Sodium 136 mmol/L (137-145); Total Protein 6.9 g/dL (6.3-8.2)
--- NOTE | 2024-10-28 14:38 | PM.IMHP ---
H&P: HPI History of Present Illness Date/Time: 10/28/24 14:38 Chief Complaint: Fall Narrative: 74 y/o F with PMH of hypothyroidism and anxiety presents here with a fall. The patient presents here from home via EMS for further evaluation of left wrist and left hip pain s/p fall. The patient reports she was standing on a chair changing a light bulb when she lost her balance and fell onto her left side. She reports pain to her left wrist and left hip post fall. She was unable to ambulate afterwards. She denies a head strike or loss of consciousness. Post fall she denies neck pain, headache, dizziness, focal weakness, focal numbness, nausea, or vomiting. She is not on chronic anticoagulation. Per chart review, the patient has a orthopedic history significant for a mildly displaced greater tuberosity fracture of the left shoulder in November of 2023. Patient was treated non operatively. Initial VS at presentation: 97.6? F, HR 54, RR 16, 04/03/2056, and 96% on 3L nasal cannula. ED workup showed: WBC 10.8, no anemia, sodium 136, creatinine 0.58 and glucose 116. Femur XR showed a mildly displaced intratrochanteric fracture of the proximal left femur, questionable nondisplaced subcapital fracture of the left femoral head, oblique lucency in the proximal left tibia. Hip/pelvic XR showed a mildly displaced intratrochanteric fracture of the proximal left femur, questionable nondisplaced subcapital fracture left femoral head. Wrist XR (L) showed an acute displaced fracture of the distal radius with posterior displacement of the distal fracture segment, minimally displaced fracture of the ulnar styloid process, surrounding soft tissue swelling, joint space narrowing, subchondral sclerosis, subchondral cyst formation and osteophyte formation. CXR showed no acute process. Head CT showed no evidence of acute intracranial hemorrhage or capillary fracture, chronic findings. Pelvic CT showed minimally displaced intratrochanteric fracture of the left femur with mild anterior angulation. Knee XR (L) showed no fracture. Review of Systems Review of Systems: All systems reviewed & are unremarkable except as noted in HPI and below [facility] Past Medical History Medical History History of humerus fracture Hypothyroidism Anxiety Surgical History Surgical History No history of previous surgery Family History Family History Mother Heart problem Social History Social History Smoking status: Never smoker Alcohol intake: never Substance use: never Substance use type: does not use Do You Feel Safe in your Home?: Yes Lack of Transportation: No Lack of Food: Never True Current Housing: I Have Housing Concerned About Future Housing: No Difficulty Paying Gas/Electric Bills: No Difficulty Paying for Meds: No Currently Unemployed: No Education: Associate Degree Difficulty w/ Childcare or Family Care: No Gender identity (if verbalized by the patient): Female Spiritual care concerns: No Meds Home Medications and Allergies Home Medications ?Medication ?Instructions ?Recorded ?Confirmed ?Type Centrum Multivitamin k2-d3 50 mcg PO DAILY 06/09/24 10/28/24 History levothyroxine 50 mcg capsule 50 mcg PO DAILY #90 caps 06/25/24 10/28/24 Rx magnesium 200 mg tablet 200 mg PO DAILY 10/28/24 10/28/24 History Allergies Allergy/AdvReac Type Severity Reaction Status Date / Time No Known Allergies Allergy Verified 10/28/24 12:51 Vital Signs Vital Signs - 24 hr 10/28/24 11:09 10/28/24 12:56 10/28/24 13:54 Temperature 97.6 F Pulse Rate 54 L 60 Respiratory Rate 16 14 Blood Pressure 124/57 L 132/63 Pulse Oximetry 96 92 98 Oxygen Delivery Nasal Cannula Oxygen Flow Rate 3 Exam Const: General: comfortable and no acute distress Other: , female, elderly, nontoxic appearance HENMT: Face/Nose/Sinus: Normal nares present Mouth: Yes moist mucous membranes Eyes: General: appearance normal, both eyes and all related structures Sclera: sclerae normal Pupils: Equal, round and reactive pupils present EOM: EOMs intact bilaterally Resp: Effort & Inspection: normal respiratory effort Auscultation: clear to auscultation bilaterally Other: Nasal cannula place, tolerating well Cardio: Rate: regular rate Rhythm: regular rhythm Other: S1-S2 present without murmur, rub, ectopy GI: Other: Abdomen soft, nondistended, nontender. Normoactive bowel sounds in all quadrants. Skin: General skin exam: normal color and no rashes or lesions noted Wounds: no wounds Neuro: Speech: normal speech Sensory Exam: normal sensation Other: A&O x4. Plus five in upper extremities and right lower extremity, unable to press due to pain in the left lower extremity. Extrem: Other: Cap refill brisk in the left upper extremity. Left lower extremity remains warm and pulses intact. No edema noted. Psych: Mental Status: mental status grossly normal Affect: normal affect Other: Good insight and judgment, pleasant H&P: Results Labs Labs: Short CBC 10/28/24 Range/Units 12:56 WBC 10.8 H (4.5-10.0) K/mm3 Hgb 13.2 (12.0-15.0) g/dL Hct 39.4 (37.0-47.0) % Plt Count 153 (150-375) k/mm3 BMP 10/28/24 12:56 Sodium 136 L Potassium 3.8 Chloride 105 Carbon Dioxide 23 BUN 17 Creatinine 0.58 L Glucose 116 H Calcium 8.7 Liver Function 10/28/24 Range/Units 12:56 Total Bilirubin 0.8 (0.2-1.3) mg/dL AST 26 (14-36) U/L ALT 19 (6-35) U/L Alkaline Phosphatase 90 (38-126) U/L Albumin 4.0 (3.5-5.1) g/dL Assessment and Plan Assessment and plan (1) Fracture, intertrochanteric, left femur: Qualifiers: Encounter type: initial encounter Fracture alignment: displaced Fracture type: closed Qualified Code(s): S72.142A - Displaced intertrochanteric fracture of left femur, initial encounter for closed fracture Code(s): S72.142A - Displaced intertrochanteric fracture of left femur, initial encounter for closed fracture Status: Acute Assessment and Plan: 10/28 Femur XR: 1. Mildly displaced intertrochanteric fracture of the proximal left femur. Consider a CT for further assessment. 2. Questionable nondisplaced subcapital fracture of the left femoral head. A CT is recommended for further assessment. 3. Oblique lucency in the proximal left tibia. Differential includes vascular channel or acute nondisplaced fracture. Correlate for point tenderness. Consider dedicated x-rays of the left knee for further assessment. Hip/pelvic XR: 1. Mildly displaced intertrochanteric fracture of the proximal left femur. Consider a CT for further assessment. 2. Questionable nondisplaced subcapital fracture of the left femoral head. A CT is recommended for further assessment. Pelvic CT: Minimally displaced intertrochanteric fracture of the left femur with mild anterior angulation. - orthopedics consulted. ED spoke with on-call orthopedist, tentative plan for surgical management on Saturday (10/30) - analgesics p.r.n. - bed rest - will need PT/OT eval postop - care coordination consulted for discharge planning/rehab placement as the patient will likely be a poor candidate for home therapy given secondary fracture to the left wrist - will make NPO at midnight in event surgery can be performed tomorrow, patient aware surgery likely to occur on Saturday - monitor labs (2) Fracture, radius, distal: Qualifiers: Encounter type: initial encounter Fracture morphology: unspecified fracture morphology Fracture type: closed Laterality: left Qualified Code(s): S52.502A - Unspecified fracture of the lower end of left radius, initial encounter for closed fracture Code(s): S52.509A - Unspecified fracture of the lower end of unspecified radius, initial encounter for closed fracture Status: Acute Assessment and Plan: 10/28 Wrist XR (L): Acute displaced fracture of the distal radius with posterior displacement of the distal fracture segment. Minimally displaced fracture of the ulnar styloid process. Surrounding soft tissue swelling. Joint space narrowing, subchondral sclerosis, subchondral cyst formation and osteophyte formation, compatible with moderate osteoarthritis. - orthopedist consulted. ED provider spoke with conductor yard orthopedist, tentative plan for surgical management on Saturday during concurrent surgical management of left femur fracture - analgesics p.r.n. - will need PT/OT eval postop - care coordination consulted - brace to be placed in the ED (3) Fracture of styloid process of left ulna: Qualifiers: Encounter type: initial encounter Fracture alignment: displaced Fracture type: closed Qualified Code(s): S52.612A - Displaced fracture of left ulna styloid process, initial encounter for closed fracture Code(s): S52.612A - Displaced fracture of left ulna styloid process, initial encounter for closed fracture Status: Acute Assessment and Plan: - see above (4) Hypothyroidism: Qualifiers: Hypothyroidism type: unspecified Qualified Code(s): E03.9 - Hypothyroidism, unspecified Code(s): E03.9 - Hypothyroidism, unspecified Status: Chronic Assessment and Plan: - continue home medication: Synthroid Plan Diet: Regular, NPO at midnight GI Prophylaxis: N/a DVT Prophylaxis: SCDs IV fluids: LR 100 mL/hour x1 L Lines/Tubes: Peripheral IV Code Status: Full code Quality VTE Prophylaxis VTE prophylaxis: mechanical ordered Hospitalist MIPS Advance Care Plan I have confirmed that the patient's Advanced Care Plan is present, code status is documented, or surrogate decision maker is listed in patient medical record.: Yes Medication Reconciliation I have utilized all available resources to obtain, update and review the patients current medications (includes all prescriptions, OTC, herbals, cannabis, and nutritional supplements).: Yes
[2024-10-28] MEDS: fentaNYL CITRATE INJ (*CRX) 100 MCG/2 ML VIAL 50 MCG IV PUSH (14:54)
--- NOTE | 2024-10-28 17:39 | ADMGEN ---
This patient, Donny Branch, was admitted to Medical Room 345-. Patient/family oriented to hospital policies and general routines including ID bracelet, bed and alarms, visiting hours, pain management, procedures, bathroom and other care routines, personal items, smoking policy, room service/diet, and visiting hours. Information on how to activate the Rapid Response Team has been discussed. Patient/Family are encouraged to report perceived risks to care and to ask questions if they do not understand what they are told or what they should do.
[2024-10-28] MEDS: HYDROcodone/acetaminophen (*CRX) 5-325 MG TABLET 1 TAB PO (18:29)
[2024-10-28] MEDS: LACTATED RINGERS 1,000 ML 100 ML IV CONT (22:50)
[2024-10-29] VITALS (8 sets, daily range): BP systolic 121–156; BP diastolic 49–86; PULSE 63–76; RESP 16–18; TEMP 36.2–37.2; O2SAT 91–98
[2024-10-29] MEDS: HYDROcodone/acetaminophen (*CRX) 5-325 MG TABLET 1 TAB PO ×3 (00:59→21:17)
[2024-10-29] MEDS: LEVOTHYROXINE SODIUM 50 MCG TABLET PO (05:46)
[2024-10-29 06:59] LABS: Hematocrit 37.6 % (37.0-47.0); Hemoglobin 11.9 g/dL (12.0-15.0); Immature Granulocyte Percent A 0.6 % (0-0.5); Immature Platelet Fraction Pct 1.3 % (0.9-11.2); Lymphocytes Absolute Auto 0.98 K/mm3 (0.9-3.2); Mean Corpuscular HGB Conc 31.6 g/dl (32-36); Mean Corpuscular Hemoglobin 31.0 pg (26-34); Mean Corpuscular Volume 97.9 fl (80-100); Nucleated Red Blood Cells Absolute Auto 0.000 K/mm3 (0.0-0.012); Nucleated Red Blood Cells Perc 0.0 % (0.0-0.2); Platelet Count Result 120 k/mm3 (150-375); Red Blood Count 3.84 M/mm3 (4.2-5.4); White Blood Count 7.2 K/mm3 (4.5-10.0)
[2024-10-29 07:08] LABS: INR 1.2; Prothrombin Time 14.9 Seconds (11.1-14.7)
[2024-10-29 07:09] LABS: Partial Thromboplastin Time 29.4 Seconds (22.3-36.8)
[2024-10-29 07:26] LABS: Anion Gap 7 mmol/L (4-12); Blood Urea Nitrogen 13 mg/dL (7-17); Calcium 8.5 mg/dL (8.4-10.2); Carbon Dioxide 21 mmol/L (22-30); Chloride 104 mmol/L (98-107); Estimated CRCL calculation 58 ml/min; Estimated Glomerular Filt Rate > 60; Glucose 100 mg/dL (65-110); Potassium 3.8 mmol/L (3.4-5.0); Sodium 132 mmol/L (137-145)
[2024-10-29] MEDS: MAGNESIUM OXIDE 200 MG TABLET PO (09:10)
[2024-10-29] MEDS: MORPHINE SULFATE (*CRX) 2 MG/ML INJ IV PUSH (09:10)
--- NOTE | 2024-10-29 11:31 | P.PNIM_ITS ---
Progress Note: A&P Assessment and Plan (1) Fracture, intertrochanteric, left femur: Qualifiers: Encounter type: initial encounter Fracture alignment: displaced Fracture type: closed Qualified Code(s): S72.142A - Displaced intertrochanteric fracture of left femur, initial encounter for closed fracture Code(s): S72.142A - Displaced intertrochanteric fracture of left femur, initial encounter for closed fracture Status: Acute Assessment and Plan: 10/28 * Femur XR: 1. Mildly displaced intertrochanteric fracture of the proximal left femur. Consider a CT for further assessment. 2. Questionable nondisplaced subcapital fracture of the left femoral head. A CT is recommended for further assessment. 3. Oblique lucency in the proximal left tibia. Differential includes vascular channel or acute nondisplaced fracture. Correlate for point tenderness. Consider dedicated x-rays of the left knee for further assessment. * Hip/pelvic XR: 1. Mildly displaced intertrochanteric fracture of the proximal left femur. Consider a CT for further assessment. 2. Questionable nondisplaced subcapital fracture of the left femoral head. A CT is recommended for further assessment. * Pelvic CT: Minimally displaced intertrochanteric fracture of the left femur wi th mild anterior angulation. - orthopedics consulted. ED spoke with on-call orthopedist, tentative plan for surgical management on Saturday (10/30) - analgesics p.r.n. - bed rest - will need PT/OT eval postop - care coordination consulted for discharge planning/rehab placement as the patient will likely be a poor candidate for home therapy given secondary fracture to the left wrist - will make NPO at midnight in event surgery can be performed tomorrow, patient aware surgery likely to occur on Saturday - monitor labs 10/29 pain/nausea control npo at midnight, anticipate surgery tomorrow (2) Fracture, radius, distal: Qualifiers: Encounter type: initial encounter Fracture morphology: unspecified fracture morphology Fracture type: closed Laterality: left Qualified Code(s): S52.502A - Unspecified fracture of the lower end of left radius, initial encounter for closed fracture Code(s): S52.509A - Unspecified fracture of the lower end of unspecified radius, initial encounter for closed fracture Status: Acute Assessment and Plan: 10/28 * Wrist XR (L): Acute displaced fracture of the distal radius with posterior displacement of the distal fracture segment. Minimally displaced fracture of the ulnar styloid process. Surrounding soft tissue swelling. Joint space narrowing, subchondral sclerosis, subchondral cyst formation and osteophyte formation, compatible with moderate osteoarthritis. - orthopedist consulted. ED provider spoke with sponsorship coordinator orthopedist, tentative plan for surgical management on Saturday during concurrent surgical management of left femur fracture - analgesics p.r.n. - will need PT/OT eval postop - care coordination consulted - brace placed in the ED npo tonight, surgery in am (3) Fracture of styloid process of left ulna: Qualifiers: Encounter type: initial encounter Fracture alignment: displaced Fracture type: closed Qualified Code(s): S52.612A - Displaced fracture of left ulna styloid process, initial encounter for closed fracture Code(s): S52.612A - Displaced fracture of left ulna styloid process, initial encounter for closed fracture Status: Acute Assessment and Plan: - see above (4) Hypothyroidism: Qualifiers: Hypothyroidism type: unspecified Qualified Code(s): E03.9 - Hypothyroidism, unspecified Code(s): E03.9 - Hypothyroidism, unspecified Status: Chronic Assessment and Plan: - continue home medication: Synthroid Plan Diet: Regular, NPO at midnight GI Prophylaxis: N/a DVT Prophylaxis: SCDs IV fluids: LR 100 mL/hour x1 L Lines/Tubes: Peripheral IV Code Status: Full code Time Spent With Patient Time with patient: 25 - 35 minutes Subjective Date/time seen: 10/29/24 11:31 Interval history: 74 y/o F with PMH of hypothyroidism and anxiety presents here with a fall. The patient presents here from home via EMS for further evaluation of left wrist and left hip pain s/p fall. The patient reports she was standing on a chair changing a light bulb when she lost her balance and fell onto her left side. She reports pain to her left wrist and left hip post fall. She was unable to ambulate afterwards. She denies a head strike or loss of consciousness. Post fall she denies neck pain, headache, dizziness, focal weakness, focal numbness, nausea, or vomiting. She is not on chronic anticoagulation. Per chart review, the patient has a orthopedic history significant for a mildly displaced greater tuberosity fracture of the left shoulder in November of 2023. Patient was treated non operatively. 10/29 assuming care. Pt is seen and examined. She is comfortable, pain is overall under control. NPO at midnight, anticipate surgery tomorrow. Review of Systems Review of Systems: All systems reviewed & are unremarkable except as noted in HPI and below Exam Const: General: comfortable and no acute distress Other: , female, elderly, nontoxic appearance HENMT: Face/Nose/Sinus: Normal nares present Mouth: Yes moist mucous membranes Eyes: General: appearance normal, both eyes and all related structures Sclera: sclerae normal Pupils: Equal, round and reactive pupils present EOM: EOMs intact bilaterally Resp: Effort & Inspection: normal respiratory effort Auscultation: clear to auscultation bilaterally Other: Nasal cannula place, tolerating well Cardio: Rate: regular rate Rhythm: regular rhythm Other: S1-S2 present without murmur, rub, ectopy GI: Other: Abdomen soft, nondistended, nontender. Normoactive bowel sounds in all q uadrants. Skin: General skin exam: normal color and no rashes or lesions noted Wounds: no wounds Neuro: Cranial nerves: Yes Equal, round and reactive pupils present Speech: normal speech Sensory Exam: normal sensation Other: A&O x4. Plus five in upper extremities and right lower extremity, unable to press due to pain in the left lower extremity. Extrem: Other: Cap refill brisk in the left upper extremity. Left lower extremity remains warm and pulses intact. No edema noted. Psych: Mental Status: mental status grossly normal Affect: normal affect Other: Good insight and judgment, pleasant Objective Data Vital Signs Vital Signs: Vital Signs - 24 hr 10/28/24 12:56 10/28/24 13:54 10/28/24 15:25 Temperature Pulse Rate 60 66 Respiratory Rate 14 16 Blood Pressure 132/63 143/53 H Pulse Oximetry 92 98 99 Oxygen Delivery Nasal Cannula Oxygen Flow Rate 3 10/28/24 16:42 10/28/24 17:24 10/28/24 17:24 Temperature 98.6 F 98.6 F Pulse Rate 73 72 72 Respiratory Rate 17 18 18 Blood Pressure 137/72 132/45 L 132/45 L Pulse Oximetry 96 97 97 Oxygen Delivery Oxygen Flow Rate 10/28/24 17:48 10/28/24 19:55 10/28/24 20:00 Temperature Pulse Rate 75 63 Respiratory Rate Blood Pressure Pulse Oximetry 94 96 Oxygen Delivery Nasal Cannula Nasal Cannula Oxygen Flow Rate 2 2 10/28/24 22:30 10/29/24 00:00 10/29/24 04:00 Temperature 98.0 F Pulse Rate 63 74 63 Respiratory Rate 18 Blood Pressure 124/58 L Pulse Oximetry 96 Oxygen Delivery Oxygen Flow Rate 10/29/24 06:00 Temperature 97.1 F L Pulse Rate 67 Respiratory Rate 18 Blood Pressure 121/49 L Pulse Oximetry 98 Oxygen Delivery Oxygen Flow Rate Intake/Output Intake/Output: Intake & Output 10/26/24 10/27/24 10/28/24 10/29/24 23:59 23:59 23:59 23:59 Output Total 1600 Balance -1600 Meds/Results Medications: Active Medications Generic Name Dose Route Start Last Admin Trade Name Freq PRN Reason Stop Dose Admin Acetaminophen 650 mg 10/28/24 17:12 Acetaminophen 325 Mg Tablet PO Q6H PRN Mild Pain (1-3) or Fever Hydrocodone Bitart/Acetaminophen 1 tab 10/28/24 17:12 10/29/24 00:59 Hydrocodone/Acetaminophen (*Crx) 5-325 Mg Tablet PO 1 tab Q6H PRN Administration Pain Rated 4-6 Levothyroxine Sodium 50 mcg 10/29/24 06:30 10/29/24 05:46 Levothyroxine Sodium 50 Mcg Tablet PO 50 mcg DAILY@0630 MARY KAY Administration Magnesium Oxide 200 mg 10/29/24 09:00 10/29/24 09:10 Magnesium Oxide 200 Mg Tablet PO 200 mg DAILY MARY KAY Administration Morphine Sulfate 2 mg 10/28/24 17:12 10/29/24 09:10 Morphine Sulfate (*Crx) 2 Mg/Ml Inj IV PUSH 2 mg Q4H PRN Administration Pain Rated 7-10 Naloxone HCl 0.1 mg 10/28/24 17:12 Naloxone Hcl 0.4 Mg/Ml Vial IV PUSH Q5MIN PRN Sedation Ondansetron HCl 4 mg 10/28/24 17:13 Ondansetron Hcl Odt 4 Mg Tablet PO Q6H PRN Nausea And Vomiting Polyethylene Glycol 17 gm 10/28/24 17:13 Polyethylene Glycol 3350 17 Gm Powd.Pack PO QAM PRN Constipation Radiology Results: ITS Impressions Femur X-Ray 10/28/24 12:32 IMPRESSION: 1. Mildly displaced intertrochanteric fracture of the proximal left femur. Consider a CT for further assessment. 2. Questionable nondisplaced subcapital fracture of the left femoral head. A CT is recommended for further assessment. 3. Oblique lucency in the proximal left tibia. Differential includes vascular channel or acute nondisplaced fracture. Correlate for point tenderness. Consider dedicated x-rays of the left knee for further assessment. Hip/Pelvis X-Ray 10/28/24 12:33 IMPRESSION: 1. Mildly displaced intertrochanteric fracture of the proximal left femur. Consider a CT for further assessment. 2. Questionable nondisplaced subcapital fracture of the left femoral head. A CT is recommended for further assessment. Chest X-Ray 10/28/24 12:36 IMPRESSION: No acute process. Head CT 10/28/24 13:14 IMPRESSION: 1. No evidence for acute intracranial hemorrhage or calvarial fracture. 2. Chronic findings, as above. Pelvis CT 10/28/24 13:18 IMPRESSION: Minimally displaced intertrochanteric fracture of the left femur with mild anterior angulation. Knee X-Ray 10/28/24 13:33 IMPRESSION: 1. No fracture identified. Wrist X-Ray 10/28/24 15:29 IMPRESSION: 1. Fractures of the left radius and left ulna as detailed above. Labs Labs: Laboratory Results - last 24 hr 10/28/24 10/29/24 12:56 06:05 WBC 10.8 H 7.2 RBC 4.20 3.84 L Hgb 13.2 11.9 L Hct 39.4 37.6 MCV 93.8 97.9 MCH 31.4 31.0 MCHC 33.5 31.6 L RDW 12.6 12.7 Plt Count 153 120 L MPV 9.9 9.8 Immature Gran % (Auto) 0.6 H 0.6 H Neut % (Auto) 89.4 H 78.3 H Lymph % (Auto) 5.6 L 13.7 L Bledsoe % (Auto) 4.3 7.0 Eos % (Auto) 0.0 0.3 Baso % (Auto) 0.1 L 0.1 L Lymph # (Auto) 0.61 L 0.98 Bledsoe # (Auto) 0.5 0.5 Eos # (Auto) 0.0 0.0 Baso # (Auto) 0.0 0.0 Abs Immat Gran (auto) 0.07 H 0.04 H Absolute Neuts (auto) 9.7 H 5.6 Absolute Nucleated RBC 0.000 0.000 Nucleated RBC % 0.0 0.0 % Immature Plt Fraction 1.3 PT 14.9 H INR 1.2 APTT 29.4 Sodium 136 L 132 L Potassium 3.8 3.8 Chloride 105 104 Carbon Dioxide 23 21 L Anion Gap 8 7 BUN 17 13 Creatinine 0.58 L 0.59 L Estim Creat Clear Calc 59 58 Estimated GFR > 60 > 60 Glucose 116 H 100 Calcium 8.7 8.5 Total Bilirubin 0.8 AST 26 ALT 19 Alkaline Phosphatase 90 Total Protein 6.9 Albumin 4.0 Quality VTE Prophylaxis VTE prophylaxis: mechanical ordered
--- NOTE | 2024-10-29 12:36 | PM.CNOR ---
Assessment and Plan Assessment and plan (1) Closed intertrochanteric fracture of left femur: Qualifiers: Encounter type: initial encounter Fracture alignment: nondisplaced Qualified Code(s): S72.145A - Nondisplaced intertrochanteric fracture of left femur, initial encounter for closed fracture <AnjaliDAWN Hylton - Last Filed: 10/29/24 13:37> Code(s): S72.142A - Displaced intertrochanteric fracture of left femur, initial encounter for closed fracture <AnjaliHOLLIS BowdenP - Last Filed: 10/29/24 13:37> Status: Acute <AnjaliHOLLIS BowdenP - Last Filed: 10/29/24 13:37> Assessment and Plan: History, exam and radiographs reviewed with the patient. Radiographs of the left hip and confirmed with CT reveal a minimally displaced intertrochanteric fracture of the left femur with mild anterior angulation. The fracture type and injury as well as radiographs discussed with the patient. . Discussed nonoperative and operative treatment options with the patient. Risks and benefits of each as well as alternatives were reviewed. All of the patient's questions were answered. The risks of surgery reviewed including but not limited to: Neurovascular damage, wound complication, infection, blood clot, pulmonary embolus, stroke, myocardial infarction, and anesthetic risks up to and including . Continued pain and possible dysfunction were explained. Specific risks of the procedure including later recurrence of deformity. No guarantees were offered. If hardware used, discussed risk of failure/ breakage and possible need for removal. If complications occur, the patient understands the need for further treatment, possible further surgery. Patient verbalizes understanding and wishes to proceed. Plan: Left Hip IT Nail by Dr. Amanda BAIRD at midnight. Hold anticoagulation. Obtain consent. Pain control. Ice. Bed rest. Monitor neurovascular status. <HOLLIS ClementsP - Last Filed: 10/29/24 13:37> (2) Fracture, radius, distal: Qualifiers: Encounter type: initial encounter Fracture morphology: unspecified fracture morphology Fracture type: closed Laterality: left Qualified Code(s): S52.502A - Unspecified fracture of the lower end of left radius, initial encounter for closed fracture <DAWN Clements - Last Filed: 10/29/24 13:37> Code(s): S52.509A - Unspecified fracture of the lower end of unspecified radius, initial encounter for closed fracture <DAWN Clements - Last Filed: 10/29/24 13:37> Status: Acute <DAWN Clements - Last Filed: 10/29/24 13:37> Assessment and Plan: History, exam and radiographs reviewed with the patient. Radiographs of the left wrist reveal a mildly displaced avulsion fracture of the ulnar styloid process and a mildly displaced and comminuted intra-articular fracture of the distal left radius. The fracture type and injury as well as radiographs discussed with the patient and family. Operative and nonoperative treatment options reviewed.Discussed nonoperative and operative treatment options with the patient. Risks and benefits of each as well as alternatives were reviewed. All of the patient's questions were answered. The risks of surgery reviewed including but not limited to: Neurovascular damage, wound complication, infection, blood clot, pulmonary embolus, stroke, myocardial infarction, and anesthetic risks up to and including . Continued pain and possible dysfunction were explained. Specific risks of the procedure including later recurrence of deformity. No guarantees were offered. If hardware used, discussed risk of failure/ breakage and possible need for removal. If complications occur, the patient understands the need for further treatment, possible further surgery. Patient verbalizes understanding and wishes to proceed. Plan: ORIF Left Wrist NPO at midnight. Pain control. Ice. Continue splint. Elevation. <DAWN Clements - Last Filed: 10/29/24 13:37> Assessment and Plan: Reviewed history, exam, radiographs and current labs with attending MD and covering surgeon, Dr. Patel, who agrees with current plan as indicated above. No further recommendations from Dr. Patel at this time. <DAWN Clements - Last Filed: 10/29/24 13:37> History of Present Illness HPI Consult date: 10/29/24 <DAWN Clements - Last Filed: 10/29/24 13:37> 10/30/24 <Ronny Patel MD - Last Filed: 10/30/24 12:39> Chief complaint: Left wrist fracture, left hip fracture <DAWN Clements - Last Filed: 10/29/24 13:37> Narrative: 74-year-old female admitted to the emergency room after a fall at home while trying to change a light bulb on top of a chair. Per patient, she fell onto the left side and complained of left hip and wrist pain which prompted her arrival to the emergency room. Radiographs of the left wrist revealed a fracture as well the left hip fracture. Patient was admitted for orthopedic evaluation and pain control. <DAWN Clements - Last Filed: 10/29/24 13:37> Review of Systems Review of Systems: All systems reviewed & are unremarkable except as noted in HPI and below <DAWN Clements - Last Filed: 10/29/24 13:37> [facility] Past Medical History Medical History: Medical History History of humerus fracture Hypothyroidism Anxiety <DAWN Clements - Last Filed: 10/29/24 13:37> Surgical History Surgical History: Surgical History No history of previous surgery <DAWN Clements - Last Filed: 10/29/24 13:37> Family History Family History: Family History Mother Heart problem <DAWN Clements - Last Filed: 10/29/24 13:37> Social History Social History: Social History Smoking status: Never smoker Alcohol intake: never Substance use: never Substance use type: does not use Do You Feel Safe in your Home?: Yes Lack of Transportation: No Lack of Food: Never True Current Housing: I Have Housing Concerned About Future Housing: No Difficulty Paying Gas/Electric Bills: No Difficulty Paying for Meds: No Currently Unemployed: No Education: Associate Degree Difficulty w/ Childcare or Family Care: No Gender identity (if verbalized by the patient): Female Spiritual care concerns: No <DAWN Clements - Last Filed: 10/29/24 13:37> Meds Home Medications and Allergies Home medications: Home Medications ?Medication ?Instructions ?Recorded ?Confirmed ?Type Centrum Multivitamin k2-d3 50 mcg PO DAILY 06/09/24 10/28/24 History levothyroxine 50 mcg capsule 50 mcg PO DAILY #90 caps 06/25/24 10/28/24 Rx magnesium 200 mg tablet 200 mg PO DAILY 10/28/24 10/28/24 History <DAWN Clements - Last Filed: 10/29/24 13:37> Allergies/Adverse reactions: Allergies Allergy/AdvReac Type Severity Reaction Status Date / Time No Known Allergies Allergy Verified 10/28/24 12:51 <DAWN Clements - Last Filed: 10/29/24 13:37> Vital Signs Vital Signs - 24 hr 10/28/24 12:56 10/28/24 13:54 10/28/24 15:25 Temperature Pulse Rate 60 66 Respiratory Rate 14 16 Blood Pressure 132/63 143/53 H Pulse Oximetry 92 98 99 Oxygen Delivery Nasal Cannula Oxygen Flow Rate 3 10/28/24 16:42 10/28/24 17:24 10/28/24 17:24 Temperature 37.0 C 37.0 C Pulse Rate 73 72 72 Respiratory Rate 17 18 18 Blood Pressure 137/72 132/45 L 132/45 L Pulse Oximetry 96 97 97 Oxygen Delivery Oxygen Flow Rate 10/28/24 17:48 10/28/24 19:55 10/28/24 20:00 Temperature Pulse Rate 75 63 Respiratory Rate Blood Pressure Pulse Oximetry 94 96 Oxygen Delivery Nasal Cannula Nasal Cannula Oxygen Flow Rate 2 2 10/28/24 22:30 10/29/24 00:00 10/29/24 04:00 Temperature 36.7 C Pulse Rate 63 74 63 Respiratory Rate 18 Blood Pressure 124/58 L Pulse Oximetry 96 Oxygen Delivery Oxygen Flow Rate 10/29/24 06:00 Temperature 36.2 C L Pulse Rate 67 Respiratory Rate 18 Blood Pressure 121/49 L Pulse Oximetry 98 Oxygen Delivery Oxygen Flow Rate <DAWN Clements - Last Filed: 10/29/24 13:37> Exam Const: General: cooperative, comfortable and average body habitus <DAWN Clements - Last Filed: 10/29/24 13:37> Nutritional Appearance: average body habitus <Anjali Rosa [facility] - Last Filed: 10/29/24 13:37> Orientation/consciousness: patient oriented x3 <Anjali Rosa [facility] - Last Filed: 10/29/24 13:37> Limitations: no limitations <Anjali Rosa [facility] - Last Filed: 10/29/24 13:37> HENMT: Head: normal to inspection and No palpable skull fracture present <Anjali Rosa [facility] - Last Filed: 10/29/24 13:37> Ears: hearing grossly normal bilaterally and external ears normal <Anjali Rosa [facility] - Last Filed: 10/29/24 13:37> Face/Nose/Sinus: Normal external nose present, Normal nares present, Normal nasal mucous membranes and turbinates present and normal facial exam <Anjali Rosa [facility] - Last Filed: 10/29/24 13:37> Face and sinus: normal facial exam <Anjali Rosa [facility] - Last Filed: 10/29/24 13:37> Mouth: Yes Normal oral and palatal mucosa present <Anjali Rosa [facility] - Last Filed: 10/29/24 13:37> Teeth and gingiva: dentition normal <Anjali Rosa [facility] - Last Filed: 10/29/24 13:37> Eyes: General: appearance normal, both eyes and all related structures <Anjali Rosa [facility] - Last Filed: 10/29/24 13:37> Sclera: sclerae normal <Anjali Rosa [facility] - Last Filed: 10/29/24 13:37> Pupils: Equal, round and reactive pupils present <Anjali Rosa [facility] - Last Filed: 10/29/24 13:37> Neck: Neck: normal visual inspection and full ROM <Anjali Rosa [facility] - Last Filed: 10/29/24 13:37> Chest: Other: Right Limb Restrictions s/p breast cancer <Anjali Rosa [facility] - Last Filed: 10/29/24 13:37> Resp: Effort & Inspection: normal respiratory effort and able to speak in complete sentences <HOLLIS ClementsP - Last Filed: 10/29/24 13:37> Cardio: Jugular venous distension: no JVD <Anjali Rosa [facility] - Last Filed: 10/29/24 13:37> Rate: regular rate <Anjali Rosa [facility] - Last Filed: 10/29/24 13:37> Rhythm: regular rhythm <Anjali Rosa [facility] - Last Filed: 10/29/24 13:37> GI: Inspection: normal to inspection <Anjali Rosa [facility] - Last Filed: 10/29/24 13:37> GI Palp: No abdominal tenderness <Anjali Rosa [facility] - Last Filed: 10/29/24 13:37> : General: Yes no CVA tenderness <Anjali Rosa [facility] - Last Filed: 10/29/24 13:37> Urinary Catheter: Urinary Catheter: patent and draining and urine clear <Anjali Rosa [facility] - Last Filed: 10/29/24 13:37> Back/Spine/Pelvis: Back: no CVA tenderness <Anjali Rosa [facility] - Last Filed: 10/29/24 13:37> Skin: General skin exam: normal color and no rashes or lesions noted <Anjali Rosa [facility] - Last Filed: 10/29/24 13:37> Wounds: no wounds <Anjali Rosa [facility] - Last Filed: 10/29/24 13:37> Neuro: General: patient oriented x3, No gait normal (NWB ), No moves all extremities and Unable to assess gait (bedrest ) <HOLLIS ClementsP - Last Filed: 10/29/24 13:37> Cranial nerves: Yes Equal, round and reactive pupils present <HOLLIS ClementsP - Last Filed: 10/29/24 13:37> Cognition (Neuro): normal cognition <Anjali Rosa [facility] - Last Filed: 10/29/24 13:37> Speech: normal speech <HOLLIS ClementsP - Last Filed: 10/29/24 13:37> Gait exam (Neuro): Unable to assess gait (bedrest ) <HOLLIS ClementsP - Last Filed: 10/29/24 13:37> Sensory Exam: normal sensation <HOLLIS ClementsP - Last Filed: 10/29/24 13:37> Extrem: Left upper extremity: normal to inspection, normal capillary refill, shoulder/upper arm inspection abnormal; no tenderness and no swelling and wrist ( Splint in place forearm to hand.) tenderness of the distal radius, swelling ( mild), abnormal ROM ( Splint in place) and other ( moves fingers, sensation intact, good capillary refill.) <HOLLIS ClementsP - Last Filed: 10/29/24 13:37> Right lower extremity: normal to inspection, full ROM, normal capillary refill, hip/thigh Details: normal to inspection and normal ROM; no tenderness and no swelling and knee Details: normal to inspection and normal ROM; no tenderness and no swelling <Anjali Rosa [facility] - Last Filed: 10/29/24 13:37> Left lower extremity: hip/thigh Details: abnormal to inspection Details: foreshortened and externally rotated, tenderness Location: of the hip Location: laterally, anteromedially and over the great trochanter, swelling Location: of the hip and of the proximal upper leg and abnormal ROM ( Limited due to fracture); ROM abnormal ( Range of motion strength testing deferred due to fracture.), ankle ( positive ankle dorsiflexion /plantar flexion) Details: normal to inspection and no edema; no tenderness and no swelling and foot Details: normal capillary refill, vascular exam Details: dorsalis pedis pulse present and motor-sensory exam light-touch normal <DAWN Clements - Last Filed: 10/29/24 13:37> Results Labs Result Diagrams: 10/29/24 06:05 10/29/24 06:05 <Anjali Rosa [facility] - Last Filed: 10/29/24 13:37> Labs: Abnormal lab results 10/28/24 10/29/24 Range/Units 12:56 06:05 WBC 10.8 H (4.5-10.0) K/mm3 RBC 3.84 L (4.2-5.4) M/mm3 Hgb 11.9 L (12.0-15.0) g/dL MCHC 31.6 L (32-36) g/dl Plt Count 120 L (150-375) k/mm3 Immature Gran % (Auto) 0.6 H 0.6 H (0-0.5) % Neut % (Auto) 89.4 H 78.3 H (45.5-73.1) % Lymph % (Auto) 5.6 L 13.7 L (18.3-44.2) % Baso % (Auto) 0.1 L 0.1 L (0.2-1.2) % Lymph # (Auto) 0.61 L (0.9-3.2) K/mm3 Abs Immat Gran (auto) 0.07 H 0.04 H (0.00-0.031) K/mm3 Absolute Neuts (auto) 9.7 H (1.3-6.7) K/mm3 PT 14.9 H (11.1-14.7) Seconds Sodium 136 L 132 L (137-145) mmol/L Carbon Dioxide 21 L (22-30) mmol/L Creatinine 0.58 L 0.59 L (0.7-1.0) mg/dL Glucose 116 H (65-110) mg/dL H & H 10/28/24 10/29/24 Range/Units 12:56 06:05 Hgb 13.2 11.9 L (12.0-15.0) g/dL Hct 39.4 37.6 (37.0-47.0) % Coagulation 10/29/24 Range/Units 06:05 INR 1.2 All other labs normal. <DAWN Clements - Last Filed: 10/29/24 13:37>
[2024-10-30] VITALS (12 sets, daily range): BP systolic 125–153; BP diastolic 54–93; PULSE 60–88; RESP 12–18; TEMP 35.8–37.1; O2SAT 93–99
[2024-10-30] MEDS: MORPHINE SULFATE (*CRX) 2 MG/ML INJ IV PUSH ×2 (02:23→08:08)
[2024-10-30] MEDS: LEVOTHYROXINE SODIUM 50 MCG TABLET PO (05:34)
--- NOTE | 2024-10-30 10:33 | PC.NURSE ---
Patient to OR per bed.
[2024-10-30] MEDS: KETOROLAC 15 MG/ML VIAL (*BKC) IV PUSH (12:21)
[2024-10-30] MEDS: ACETAMINOPHEN 500 MG TABLET 1000 MG PO (12:21)
[2024-10-30] MEDS: TRANEXAMIC ACID 1,000MG/ISO100 1,000 MG/100 ML BAG 200 MG IVPB (12:22)
--- NOTE | 2024-10-30 12:23 | SUR.PREOP ---
1100 HAIR REMOVAL AND SCRUB DEFFERED DUE TO PAIN WITH TOUCH AND MOVEMENT.
--- NOTE | 2024-10-30 12:24 | P.PNIM_ITS ---
Progress Note: A&P Assessment and Plan (1) Fracture, intertrochanteric, left femur: Qualifiers: Encounter type: initial encounter Fracture type: closed Fracture alignment: displaced Qualified Code(s): S72.142A - Displaced intertrochanteric fracture of left femur, initial encounter for closed fracture Code(s): S72.142A - Displaced intertrochanteric fracture of left femur, initial encounter for closed fracture Status: Acute Assessment and Plan: 10/28 * Femur XR: 1. Mildly displaced intertrochanteric fracture of the proximal left femur. Consider a CT for further assessment. 2. Questionable nondisplaced subcapital fracture of the left femoral head. A CT is recommended for further assessment. 3. Oblique lucency in the proximal left tibia. Differential includes vascular channel or acute nondisplaced fracture. Correlate for point tenderness. Consider dedicated x-rays of the left knee for further assessment. * Hip/pelvic XR: 1. Mildly displaced intertrochanteric fracture of the proximal left femur. Consider a CT for further assessment. 2. Questionable nondisplaced subcapital fracture of the left femoral head. A CT is recommended for further assessment. * Pelvic CT: Minimally displaced intertrochanteric fracture of the left femur wi th mild anterior angulation. - orthopedics consulted. ED spoke with on-call orthopedist, tentative plan for surgical management on Saturday (10/30) - analgesics p.r.n. - bed rest - will need PT/OT eval postop - care coordination consulted for discharge planning/rehab placement as the patient will likely be a poor candidate for home therapy given secondary fracture to the left wrist - will make NPO at midnight in event surgery can be performed tomorrow, patient aware surgery likely to occur on Saturday - monitor labs 10/29 pain/nausea control npo at midnight, anticipate surgery tomorrow 10/30 Left Hip IT Nail by Dr. Patel (2) Fracture, radius, distal: Qualifiers: Encounter type: initial encounter Fracture type: closed Fracture morphology: unspecified fracture morphology Laterality: left Qualified Code(s): S52.502A - Unspecified fracture of the lower end of left radius, initial encounter for closed fracture Code(s): S52.509A - Unspecified fracture of the lower end of unspecified radius, initial encounter for closed fracture Status: Acute Assessment and Plan: 10/28 * Wrist XR (L): Acute displaced fracture of the distal radius with posterior displacement of the distal fracture segment. Minimally displaced fracture of the ulnar styloid process. Surrounding soft tissue swelling. Joint space narrowing, subchondral sclerosis, subchondral cyst formation and osteophyte formation, compatible with moderate osteoarthritis. - orthopedist consulted. ED provider spoke with [employer] supervisor orthopedist, tentative plan for surgical management on Saturday during concurrent surgical management of left femur fracture - analgesics p.r.n. - will need PT/OT eval postop - care coordination consulted - brace placed in the ED npo tonight, surgery in am 10/30- Left Hip IT Nail by Dr. Patel (3) Fracture of styloid process of left ulna: Qualifiers: Encounter type: initial encounter Fracture type: closed Fracture alignment: displaced Qualified Code(s): S52.612A - Displaced fracture of left ulna styloid process, initial encounter for closed fracture Code(s): S52.612A - Displaced fracture of left ulna styloid process, initial encounter for closed fracture Status: Acute Assessment and Plan: - see above (4) Hypothyroidism: Qualifiers: Hypothyroidism type: unspecified Qualified Code(s): E03.9 - Hypothyroidism, unspecified Code(s): E03.9 - Hypothyroidism, unspecified Status: Chronic Assessment and Plan: - continue home medication: Synthroid Plan Diet: advance as tolerated after surgery (reguar) GI Prophylaxis: N/a DVT Prophylaxis: SCDs IV fluids: LR 100 mL/hour x1 L Lines/Tubes: Peripheral IV Code Status: Full code Time Spent With Patient Time with patient: 25 - 35 minutes Subjective Date/time seen: 10/30/24 12:24 Interval history: 74 y/o F with PMH of hypothyroidism and anxiety presents here with a fall. The patient presents here from home via EMS for further evaluation of left wrist and left hip pain s/p fall. The patient reports she was standing on a chair changing a light bulb when she lost her balance and fell onto her left side. She reports pain to her left wrist and left hip post fall. She was unable to ambulate afterwards. She denies a head strike or loss of consciousness. Post fall she denies neck pain, headache, dizziness, focal weakness, focal numbness, nausea, or vomiting. She is not on chronic anticoagulation. Per chart review, the patient has a orthopedic history significant for a mildly displaced greater tuberosity fracture of the left shoulder in November of 2023. Patient was treated non operatively. 10/29 assuming care. Pt is seen and examined. She is comfortable, pain is overall under control. NPO at midnight, anticipate surgery tomorrow. 10/30 Left Hip IT Nail by Dr. Patel today Review of Systems Review of Systems: All systems reviewed & are unremarkable except as noted in HPI and below Exam Const: General: comfortable and no acute distress Other: , female, elderly, nontoxic appearance HENMT: Face/Nose/Sinus: Normal nares present Mouth: Yes moist mucous membranes Eyes: General: appearance normal, both eyes and all related structures Sclera: sclerae normal Pupils: Equal, round and reactive pupils present EOM: EOMs intact bilaterally Resp: Effort & Inspection: normal respiratory effort Auscultation: clear to auscultation bilaterally Other: Nasal cannula place, tolerating well Cardio: Rate: regular rate Rhythm: regular rhythm Other: S1-S2 present without murmur, rub, ectopy GI: Other: Abdomen soft, nondistended, nontender. Normoactive bowel sounds in all quadrants. Skin: General skin exam: normal color and no rashes or lesions noted Wounds: no wounds Neuro: Cranial nerves: Yes Equal, round and reactive pupils present Speech: normal speech Sensory Exam: normal sensation Other: A&O x4. Plus five in upper extremities and right lower extremity, unable to press due to pain in the left lower extremity. Extrem: Other: Cap refill brisk in the left upper extremity. Left lower extremity remains warm and pulses intact. No edema noted. Psych: Mental Status: mental status grossly normal Affect: normal affect Other: Good insight and judgment, pleasant Objective Data Vital Signs Vital Signs: Vital Signs - 24 hr 10/29/24 14:00 10/29/24 20:05 10/29/24 20:33 Temperature 98.9 F 97.7 F Pulse Rate 75 76 Respiratory Rate 18 16 Blood Pressure 136/54 L 156/86 H Pulse Oximetry 91 92 92 Oxygen Delivery Room Air Oxygen Flow Rate 10/29/24 21:17 10/30/24 05:18 10/30/24 08:15 Temperature 97.7 F Pulse Rate 65 Respiratory Rate 16 Blood Pressure 130/54 L Pulse Oximetry 97 97 Oxygen Delivery Room Air Nasal Cannula Oxygen Flow Rate 1 10/30/24 10:51 Temperature 98.8 F Pulse Rate 71 Respiratory Rate 16 Blood Pressure 152/66 H Pulse Oximetry 97 Oxygen Delivery Room Air Oxygen Flow Rate Intake/Output Intake/Output: Intake & Output 10/27/24 10/28/24 10/29/24 10/30/24 23:59 23:59 23:59 23:59 Intake Total 1600 400 Output Total 1950 1850 Balance -350 -1450 Meds/Results Medications: Active Medications Generic Name Dose Route Start Last Admin Trade Name Freq PRN Reason Stop Dose Admin Acetaminophen 650 mg 10/28/24 17:12 Acetaminophen 325 Mg Tablet PO Q6H PRN Mild Pain (1-3) or Fever Hydrocodone Bitart/Acetaminophen 1 tab 10/28/24 17:12 10/29/24 21:17 Hydrocodone/Acetaminophen (*Crx) 5-325 Mg Tablet PO 1 tab Q6H PRN Administration Pain Rated 4-6 Levothyroxine Sodium 50 mcg 10/29/24 06:30 10/30/24 05:34 Levothyroxine Sodium 50 Mcg Tablet PO 50 mcg DAILY@0630 MARY KAY Administration Magnesium Oxide 200 mg 10/29/24 09:00 10/29/24 09:10 Magnesium Oxide 200 Mg Tablet PO 200 mg DAILY MARY KAY Administration Morphine Sulfate 2 mg 10/28/24 17:12 10/30/24 08:08 Morphine Sulfate (*Crx) 2 Mg/Ml Inj IV PUSH 2 mg Q4H PRN Administration Pain Rated 7-10 Naloxone HCl 0.1 mg 10/28/24 17:12 Naloxone Hcl 0.4 Mg/Ml Vial IV PUSH Q5MIN PRN Sedation Ondansetron HCl 4 mg 10/28/24 17:13 Ondansetron Hcl Odt 4 Mg Tablet PO Q6H PRN Nausea And Vomiting Polyethylene Glycol 17 gm 10/28/24 17:13 Polyethylene Glycol 3350 17 Gm Powd.Pack PO QAM PRN Constipation Radiology Results: ITS Impressions Femur X-Ray 10/28/24 12:32 IMPRESSION: 1. Mildly displaced intertrochanteric fracture of the proximal left femur. Consider a CT for further assessment. 2. Questionable nondisplaced subcapital fracture of the left femoral head. A CT is recommended for further assessment. 3. Oblique lucency in the proximal left tibia. Differential includes vascular channel or acute nondisplaced fracture. Correlate for point tenderness. Consider dedicated x-rays of the left knee for further assessment. Hip/Pelvis X-Ray 10/28/24 12:33 IMPRESSION: 1. Mildly displaced intertrochanteric fracture of the proximal left femur. Consider a CT for further assessment. 2. Questionable nondisplaced subcapital fracture of the left femoral head. A CT is recommended for further assessment. Chest X-Ray 10/28/24 12:36 IMPRESSION: No acute process. Head CT 10/28/24 13:14 IMPRESSION: 1. No evidence for acute intracranial hemorrhage or calvarial fracture. 2. Chronic findings, as above. Pelvis CT 10/28/24 13:18 IMPRESSION: Minimally displaced intertrochanteric fracture of the left femur with mild anterior angulation. Knee X-Ray 10/28/24 13:33 IMPRESSION: 1. No fracture identified. Wrist X-Ray 10/28/24 15:29 IMPRESSION: 1. Fractures of the left radius and left ulna as detailed above. Labs Labs: Laboratory Results - last 24 hr 10/30/24 09:48 Blood Type B Positive Antibody Screen Negative Quality VTE Prophylaxis VTE prophylaxis: mechanical ordered
--- NOTE | 2024-10-30 12:24 | SUR.PREOP ---
1210 PT AND INFORMED OF SURGERY TIME DELAY, DENIES NEEDS
--- NOTE | 2024-10-30 12:34 | WPDANESEPPF ---
Anes - Initial Pre Proc Eval Procedure: Operation Date: 10/30/24 12:00 Proposed Procedures p Left Intertrochanteric Nail(Left) - Ronny Patel MD s Open Reduction Internal Fixation Left Distal Radius Fracture(Left) - Ronny Patel MD Date/Time: 10/30/24 12:34 Surgeon: Lian Vega MD Pre Op Diagnosis: Left wrist fracture, left hip fracture Patient Data Age: 74 Gender: F Height: 1.57 m Weight: 61.2 kg Last Vital Signs Temp 37.1 C 10/30/24 10:51 Pulse 71 10/30/24 10:51 Resp 16 10/30/24 10:51 BP 152/66 H 10/30/24 10:51 Pulse Ox 97 10/30/24 10:51 O2 Del Method Room Air 10/30/24 10:51 O2 Flow Rate 1 10/30/24 08:15 Allergies Allergy/AdvReac Type Severity Reaction Status Date / Time No Known Allergies Allergy Verified 10/28/24 12:51 Home Medications ?Medication ?Instructions ?Recorded ?Confirmed ?Type Centrum Multivitamin k2-d3 50 mcg PO DAILY 06/09/24 10/28/24 History levothyroxine 50 mcg capsule 50 mcg PO DAILY #90 caps 06/25/24 10/28/24 Rx magnesium 200 mg tablet 200 mg PO DAILY 10/28/24 10/28/24 History Laboratory Tests 10/30/24 09:48 Blood Type B Positive Antibody Screen Negative Patient hx anesthesia problems: none Family hx anesthesia problems: none Results Review: All pre-operative results and documents have been reviewed as part of the pre-operative evaluation. [facility] Past Medical History Medical History History of humerus fracture Hypothyroidism Anxiety Surgical History Surgical History No history of previous surgery Family History Family History Mother Heart problem Social History Social History Smoking status: Never smoker Alcohol intake: never Substance use: never Substance use type: does not use Do You Feel Safe in your Home?: Yes Lack of Transportation: No Lack of Food: Never True Current Housing: I Have Housing Concerned About Future Housing: No Difficulty Paying Gas/Electric Bills: No Difficulty Paying for Meds: No Currently Unemployed: No Education: Associate Degree Difficulty w/ Childcare or Family Care: No Gender identity (if verbalized by the patient): Female Spiritual care concerns: No Anes - Eval Final PreProcedure Day of Procedure 10/30/24 12:34 Patient weight: normal Heart: regular rate and rhythm Lungs: clear to auscultation Airway: Mallampati scale class III and special considerations poor dentition Neurological: alert and oriented Last oral intake: >/= 8 hours ASA classification: II Emergent: no Anesthetic plan: proceed Anesthesia type and monitoring: general LMA and standard monitoring Results Review: All pre-operative results and documents have been reviewed as part of the pre-operative evaluation. Informed Consent: The patient's anesthetic plan and its attendant risks and benefits were discussed with the patient/family/POA. Questions were solicited and answers provided to the satisfaction of the patient/family/POA.
--- NOTE | 2024-10-30 12:39 | WPDHPUPDATE1 ---
History and Physical Update Update Date/Time: 10/30/24 12:39 History and Physical has been reviewed, including an updated exam of the patient. There are NO changes in the patient's condition. Risks, benefits, and alternatives have been discussed and questions answered. Patient agrees to proceed with procedure.
[2024-10-30] MEDS: ceFAZolin 2 GM in SODIUM CHLORIDE 0.9% IV 50 ML 100 ML IVPB ×2 (12:55→21:58)
[2024-10-30] MEDS: LACTATED RINGERS 1,000 ML 30 ML IV CONT ×2 (16:01)
--- NOTE | 2024-10-30 16:02 | W.PM.PROC2 ---
Procedure Note - Detailed Date of Procedure 10/30/24 Pre-op Diagnosis Left wrist fracture, left hip fracture Post-op Diagnosis Same Procedure Performed INSERTION GAMMA JAKUB LEFT HIP Surgeon Ronny Patel MD Anesthesia General Description of Procedure THE PATIENT WAS TAKEN TO THE OPERATING ROOM AND PLACED ON A FRACTURE TABLE AFTER GIVEN GENERAL ANESTHESIA. THE LEFT LOWER EXTREMITY WAS PLACED IN A TRACTION BOOT AND USING SOME TRACTION AND INTERNAL ROTATION THE INNER TROCHANTERIC FRACTURE WAS REDUCED TO ANATOMIC POSITION. NEXT THE LEFT LOWER EXTREMITY WAS PREPPED AND DRAPED IN THE STERILE FASHION. AN INCISION WAS MADE PROXIMAL TO THE TIP OF THE GREATER TROCHANTER AND DISSECTION CONTINUED TILL THE TIP OF THE GREATER TROCHANTER WAS PALPATED. A GUIDE PIN WAS PLACED DOWN THE FEMORAL CANAL AND PAST THE FRACTURE SITE. THIS WAS CHECKED ON FLUOROSCOPY AND FOUND TO BE IN GOOD POSITION. AN INITIAL REAMER WAS USED TO REAM THE FEMORAL CANAL. A 10 BY 180 MM GAMMA JAKUB WAS INSERTED TILL THE CORRECT POSITION WAS IDENTIFIED ON XRAY. A GUIDE PIN WAS INSERTED THROUGH THE FEMORAL NECK AT 130 DEG ANGLE TILL IT REACHED THE TIP OF THE SUB CHONDRAL BONE SEEN ON XRAY. AFTER REAMING, LAG SCREW WAS INSERTED MEASURING 110 MM. XRAYS SHOWED IT TO BE IN GOOD POSITION. THE LAG SCREW WAS LOCKED PROXIMALLY WITH A LOCKING SCREW. NEXT A DISTAL LOCKING SCREW WAS PLACED ACROSS THE JAKUB AND WAS IN GOOD POSITION ON XRAY. THE TRACTION WAS RELEASED. THE WOUNDS WERE WASHED. THE DEEP FASCIA WAS REPAIRED WITH 0 VICRYL SUTURE, THE SUB CUTANEOUS LAYER WITH 2-0 VICRYL, AND THE SKIN WITH FLOR. THE WOUNDS WERE WASHED AND THEN STERILE DRESSING WAS APPLIED. Estimated Blood Loss 100 Urine Output 300 Complications No immediate complications Condition Stable Disposition PACU
--- NOTE | 2024-10-30 16:05 | W.PM.PROC2 ---
Procedure Note - Detailed Date of Procedure 10/30/24 Pre-op Diagnosis Left wrist fracture, left hip fracture Post-op Diagnosis Same Procedure Performed ORIF LEFT DISTAL RADIUS FRACTURE Surgeon Ronny Patel MD Anesthesia General Description of Procedure THE LEFT UPPER EXTREMITY WAS PREPPED AND DRAPED IN THE STERILE FASHION. A STANDARD HENRYS APPROACH WAS USED TO THE VOLAR WRIST. DISSECTION THROUGH THE SKIN AND SUBCUTANEOUS TISSUE WAS PREFORMED. THE FCR TENDON WAS IDENTIFIED. THE RADIAL ARTERY WAS IDENTIFIED AND RETRACTED. THE THE FLEXOR POLLICIS AND THE COMMON FLEXOR TENDONS WERE IDENTIFIED AND RETRACTED. THE PRONATOR QUADRATUS WAS IDENTIFIED AND INCISED EXPOSING THE FRACTURE. IT WAS HIGHLY COMMINUTED. A TRIAL REDUCTION WAS PREFORMED AND FIXED WITH A K WIRE. NEXT A BIOMET DISTAL RADIUS LOCKING PLATE WAS PLACED BRIDGING THE FRACTURE FRAGMENTS. SCREWS WERE PLACED DISTALLY AND PROXIMALLY. THE DISTAL SCREWS WERE IMAGED AND FOUND TO BE EXTRA ARTICULAR. C ARM IMAGES WERE PREFORMED AND HARDWARE AND FRACTURE FRAGMENTS WERE IN GOOD POSITION. THE TOURNIQUET WAS DEFLATED AND THE BLEEDERS WERE CAUTERIZED. THE FASCIA AND SUB CUTANEOUS LAYERS WERE APPROXIMATED WITH 3-0 VICRYL. THE SKIN WAS APPROXIMATED WITH FLOR. STERILE DRESSING AND SPLINT WAS APPLIED. PATIENT WAS EXTUBATED. Estimated Blood Loss 100 Urine Output 300 Complications No immediate complications Condition Stable Disposition PACU
[2024-10-30] MEDS: fentaNYL CITRATE INJ (*CRX) 100 MCG/2 ML VIAL 25 MCG IV PUSH ×4 (16:15→16:29)
--- NOTE | 2024-10-30 16:56 | PC.NURSE ---
Returned from OR per bed. Report received from Courtney BHATIA.
[2024-10-30] MEDS: SODIUM CHLORIDE 0.9% IV 1,000 ML 125 ML IV CONT (17:24)
[2024-10-30] MEDS: SENNA/DOCUSATE SODIUM TABLET 2 TAB PO (17:25)
[2024-10-30] MEDS: MAGNESIUM OXIDE 200 MG TABLET PO (17:25)
[2024-10-30] MEDS: HYDROcodone/acetaminophen (*CRX) 5-325 MG TABLET 1 TAB PO (17:39)
[2024-10-30] MEDS: FAMOTIDINE 20 MG TABLET PO (21:58)
[2024-10-31 00:08] VITALS: BP 129/57; PULSE 72; RESP 18; TEMP 36.5; O2SAT 96
[2024-10-31 04:54] VITALS: BP 148/58; PULSE 86; RESP 16; TEMP 36.6; O2SAT 95
[2024-10-31] MEDS: ceFAZolin 2 GM in SODIUM CHLORIDE 0.9% IV 50 ML 100 ML IVPB ×2 (04:59→13:11)
[2024-10-31] MEDS: HYDROcodone/acetaminophen (*CRX) 5-325 MG TABLET 1 TAB PO ×2 (04:59→23:32)
[2024-10-31] MEDS: LEVOTHYROXINE SODIUM 50 MCG TABLET PO (05:00)
[2024-10-31 05:42] LABS: Hematocrit 32.5 % (37.0-47.0); Hemoglobin 10.9 g/dL (12.0-15.0); Immature Granulocyte Percent A 0.4 % (0-0.5); Lymphocytes Absolute Auto 1.28 K/mm3 (0.9-3.2); Mean Corpuscular HGB Conc 33.5 g/dl (32-36); Mean Corpuscular Hemoglobin 31.2 pg (26-34); Mean Corpuscular Volume 93.1 fl (80-100); Nucleated Red Blood Cells Absolute Auto 0.000 K/mm3 (0.0-0.012); Nucleated Red Blood Cells Perc 0.0 % (0.0-0.2); Platelet Count Result 100 k/mm3 (150-375); Red Blood Count 3.49 M/mm3 (4.2-5.4); White Blood Count 7.8 K/mm3 (4.5-10.0)
[2024-10-31 06:04] LABS: Anion Gap 3 mmol/L (4-12); Blood Urea Nitrogen 10 mg/dL (7-17); Calcium 8.0 mg/dL (8.4-10.2); Carbon Dioxide 23 mmol/L (22-30); Chloride 104 mmol/L (98-107); Estimated CRCL calculation 68 ml/min; Estimated Glomerular Filt Rate > 60; Glucose 103 mg/dL (65-110); Potassium 4.5 mmol/L (3.4-5.0); Sodium 130 mmol/L (137-145)
[2024-10-31 08:50] VITALS: O2SAT 93
[2024-10-31] MEDS: FAMOTIDINE 20 MG TABLET PO ×2 (08:52→21:13)
[2024-10-31] MEDS: MULTIVITAMINS THERAPEUTIC TAB (*BKC) 1 TABLET PO (08:52)
[2024-10-31] MEDS: SENNA/DOCUSATE SODIUM TABLET 2 TAB PO ×2 (08:52→17:29)
[2024-10-31] MEDS: CELECOXIB 200 MG CAPSULE PO (08:52)
[2024-10-31] MEDS: MAGNESIUM OXIDE 200 MG TABLET PO (08:53)
[2024-10-31] MEDS: oxyCODONE/ACETAMINOPHEN (*CRX) 10-325 MG TABLET 1 TAB PO (08:56)
--- NOTE | 2024-10-31 13:02 | PM.IMPN ---
Progress Note: A&P Assessment and Plan (1) Fracture, intertrochanteric, left femur: Qualifiers: Encounter type: initial encounter Fracture type: closed Fracture alignment: displaced Qualified Code(s): S72.142A - Displaced intertrochanteric fracture of left femur, initial encounter for closed fracture Code(s): S72.142A - Displaced intertrochanteric fracture of left femur, initial encounter for closed fracture Status: Acute Assessment and Plan: 10/28 Femur XR: 1. Mildly displaced intertrochanteric fracture of the proximal left femur. Consider a CT for further assessment. 2. Questionable nondisplaced subcapital fracture of the left femoral head. A CT is recommended for further assessment. 3. Oblique lucency in the proximal left tibia. Differential includes vascular channel or acute nondisplaced fracture. Correlate for point tenderness. Consider dedicated x-rays of the left knee for further assessment. Hip/pelvic XR: 1. Mildly displaced intertrochanteric fracture of the proximal left femur. Consider a CT for further assessment. 2. Questionable nondisplaced subcapital fracture of the left femoral head. A CT is recommended for further assessment. Pelvic CT: Minimally displaced intertrochanteric fracture of the left femur with mild anterior angulation. - orthopedics consulted. ED spoke with on-call orthopedist, tentative plan for surgical management on Saturday (10/30) - analgesics p.r.n. - bed rest - will need PT/OT eval postop - care coordination consulted for discharge planning/rehab placement as the patient will likely be a poor candidate for home therapy given secondary fracture to the left wrist - will make NPO at midnight in event surgery can be performed tomorrow, patient aware surgery likely to occur on Saturday - monitor labs 10/29 pain/nausea control npo at midnight, anticipate surgery tomorrow 10/30 Left Hip IT Nail by Dr. Patel 10/31 s/p ORIF LEFT DISTAL RADIUS FRACTURE/INSERTION GAMMA JAKUB LEFT HIP doing well. pain is controlled. pt/ot anticipate discharge in [facility] next couople of days once cleared per ortho anticoag as needed per ortho instructions (2) Fracture, radius, distal: Qualifiers: Encounter type: initial encounter Fracture type: closed Fracture morphology: unspecified fracture morphology Laterality: left Qualified Code(s): S52.502A - Unspecified fracture of the lower end of left radius, initial encounter for closed fracture Code(s): S52.509A - Unspecified fracture of the lower end of unspecified radius, initial encounter for closed fracture Status: Acute Assessment and Plan: 10/28 Wrist XR (L): Acute displaced fracture of the distal radius with posterior displacement of the distal fracture segment. Minimally displaced fracture of the ulnar styloid process. Surrounding soft tissue swelling. Joint space narrowing, subchondral sclerosis, subchondral cyst formation and osteophyte formation, compatible with moderate osteoarthritis. - orthopedist consulted. ED provider spoke with regional branch manager orthopedist, tentative plan for surgical management on Saturday during concurrent surgical management of left femur fracture - analgesics p.r.n. - will need PT/OT eval postop - care coordination consulted - brace placed in the ED npo tonight, surgery in am 10/30- Left Hip IT Nail by Dr. Patel (3) Fracture of styloid process of left ulna: Qualifiers: Encounter type: initial encounter Fracture type: closed Fracture alignment: displaced Qualified Code(s): S52.612A - Displaced fracture of left ulna styloid process, initial encounter for closed fracture Code(s): S52.612A - Displaced fracture of left ulna styloid process, initial encounter for closed fracture Status: Acute Assessment and Plan: - see above (4) Hypothyroidism: Qualifiers: Hypothyroidism type: unspecified Qualified Code(s): E03.9 - Hypothyroidism, unspecified Code(s): E03.9 - Hypothyroidism, unspecified Status: Chronic Assessment and Plan: - continue home medication: Synthroid Plan Diet: advance as tolerated after surgery (reguar) GI Prophylaxis: N/a DVT Prophylaxis: SCDs IV fluids: LR 100 mL/hour x1 L Lines/Tubes: Peripheral IV Code Status: Full code Time Spent With Patient Time with patient: 25 - 35 minutes Subjective Date/time seen: 10/31/24 13:02 Interval history: 74 y/o F with PMH of hypothyroidism and anxiety presents here with a fall. The patient presents here from home via EMS for further evaluation of left wrist and left hip pain s/p fall. The patient reports she was standing on a chair changing a light bulb when she lost her balance and fell onto her left side. She reports pain to her left wrist and left hip post fall. She was unable to ambulate afterwards. She denies a head strike or loss of consciousness. Post fall she denies neck pain, headache, dizziness, focal weakness, focal numbness, nausea, or vomiting. She is not on chronic anticoagulation. Per chart review, the patient has a orthopedic history significant for a mildly displaced greater tuberosity fracture of the left shoulder in November of 2023. Patient was treated non operatively. 10/29 assuming care. Pt is seen and examined. She is comfortable, pain is overall under control. NPO at midnight, anticipate surgery tomorrow. 10/30 Left Hip IT Nail by Dr. Patel today 10/31 doing fairly well. Pain mostly to lt wrist but taking pain meds. No nausea. working with PT/OT using IS. has miralax as needed. Review of Systems Review of Systems: All systems reviewed & are unremarkable except as noted in HPI and below Exam Const: General: comfortable and no acute distress HENMT: Face/Nose/Sinus: Normal nares present Mouth: Yes moist mucous membranes Eyes: General: appearance normal, both eyes and all related structures Sclera: sclerae normal Pupils: Equal, round and reactive pupils present EOM: EOMs intact bilaterally Resp: Effort & Inspection: normal respiratory effort Auscultation: clear to auscultation bilaterally Other: Nasal cannula place, tolerating well Cardio: Rate: regular rate Rhythm: regular rhythm Other: S1-S2 present without murmur, rub, ectopy GI: Other: Abdomen soft, nondistended, nontender. Normoactive bowel sounds in all quadrants. Skin: General skin exam: normal color and no rashes or lesions noted Wounds: no wounds Neuro: Cranial nerves: Yes Equal, round and reactive pupils present Speech: normal speech Sensory Exam: normal sensation Other: A&O x4. Extrem: Other: Cap refill brisk in the left upper extremity. Left lower extremity remains warm and pulses intact. No edema noted. Psych: Mental Status: mental status grossly normal Affect: normal affect Other: Good insight and judgment, pleasant Objective Data Vital Signs Vital Signs: Vital Signs - 24 hr 10/30/24 16:01 10/30/24 16:15 10/30/24 16:30 Temperature 97.5 F L Pulse Rate 88 72 73 Respiratory Rate 12 12 16 Blood Pressure 133/64 125/61 130/93 H Pulse Oximetry 96 96 93 Oxygen Delivery Simple Face Mask Simple Face Mask Nasal Cannula Oxygen Flow Rate 8 8 2 10/30/24 16:45 10/30/24 17:00 10/30/24 17:00 Temperature 97.0 F L Pulse Rate 60 63 Respiratory Rate 12 16 Blood Pressure 134/66 146/61 H Pulse Oximetry 97 98 97 Oxygen Delivery Nasal Cannula Nasal Cannula Oxygen Flow Rate 2 2 10/30/24 17:15 10/30/24 17:45 10/30/24 18:45 Temperature 97.3 F L 96.5 F L 97.0 F L Pulse Rate 65 63 66 Respiratory Rate 16 16 16 Blood Pressure 140/63 153/68 H 144/70 H Pulse Oximetry 99 97 97 Oxygen Delivery Oxygen Flow Rate 10/30/24 19:55 10/30/24 20:00 10/31/24 00:08 Temperature 97.7 F 97.7 F Pulse Rate 66 72 Respiratory Rate 18 18 Blood Pressure 134/61 129/57 L Pulse Oximetry 97 96 Oxygen Delivery Room Air Oxygen Flow Rate 10/31/24 04:54 10/31/24 08:32 10/31/24 10:04 Temperature 97.8 F Pulse Rate 86 Respiratory Rate 16 Blood Pressure 148/58 H Pulse Oximetry 95 Oxygen Delivery Nasal Cannula Nasal Cannula Oxygen Flow Rate 2 2 Intake/Output Intake/Output: Intake & Output 10/28/24 10/29/24 10/30/24 10/31/24 23:59 23:59 23:59 23:59 Intake Total 8132 149 1897 Output Total 1950 2950 850 350 -2009 180 Meds/Results Medications: Active Medications Generic Name Dose Route Start Last Admin Trade Name Freq PRN Reason Stop Dose Admin Acetaminophen 500 mg 10/30/24 16:52 Acetaminophen 500 Mg Tablet PO Q6H PRN Pain Rated 1-3 Hydrocodone Bitart/Acetaminophen 1 tab 10/30/24 16:52 10/31/24 04:59 Hydrocodone/Acetaminophen (*Crx) 5-325 Mg Tablet PO 1 tab Q4H PRN Administration Pain Rated 4-6 Celecoxib 200 mg 10/31/24 08:00 10/31/24 08:52 Celecoxib 200 Mg Capsule PO 200 mg DAILY@0800 MARY KAY Administration Diazepam 5 mg 10/30/24 16:52 Diazepam (*Crx) 5 Mg Tablet PO Q8H PRN Muscle Spasm Enoxaparin Sodium 40 mg 10/31/24 09:00 10/31/24 08:51 Enoxaparin 40 Mg/0.4 Ml Syringe SUB-Q Not Given DAILY [facility] Famotidine 20 mg 10/30/24 21:00 10/31/24 08:52 Famotidine 20 Mg Tablet PO 20 mg Q12HR MARY KAY Administration Hydromorphone HCl 1 mg 10/30/24 16:52 Hydromorphone Hcl Inj (*Crx) 1 Mg/Ml Syr IV PUSH Q2H PRN Breakthrough Pain Rated 7-10 or NPO Hydromorphone HCl 0.5 mg 10/30/24 16:52 Hydromorphone Hcl Inj (*Crx) 1 Mg/Ml Syr IV PUSH Q2H PRN Breakthrough Pain Rated 4-6 or NPO Hydroxyzine Pamoate 50 mg 10/30/24 16:52 10/31/24 08:52 Hydroxyzine Pamoate 25 Mg Capsule PO 50 mg Q4H PRN Administration Itching Cefazolin Sodium 2 gm/ Sodium 50 mls @ 100 mls/hr 10/30/24 21:00 10/31/24 04:59 Chloride IVPB 10/31/24 13:29 100 mls/hr Q8H MARY KAY Administration Ibuprofen 800 mg in 200 mls @ 400 mls/hr 10/30/24 16:52 Caldolor 800 Mg/200 Ml IVPB Q6H PRN Breakthrough Pain Rated 1-3 or NPO Levothyroxine Sodium 50 mcg 10/29/24 06:30 10/31/24 05:00 Levothyroxine Sodium 50 Mcg Tablet PO 50 mcg DAILY@0630 [facility] Administration Magnesium Oxide 200 mg 10/29/24 09:00 10/31/24 08:53 Magnesium Oxide 200 Mg Tablet PO 200 mg DAILY MARY KAY Administration Multivitamins Therapeutic 1 tablet 10/31/24 09:00 10/31/24 08:52 Multivitamins Therapeutic Tab (*Bkc) PO 1 tablet QAM MARY KAY Administration Naloxone HCl 0.1 mg 10/28/24 17:12 Naloxone Hcl 0.4 Mg/Ml Vial IV PUSH Q5MIN PRN Sedation Ondansetron HCl 4 mg 10/28/24 17:13 Ondansetron Hcl Odt 4 Mg Tablet PO Q6H PRN Nausea And Vomiting Oxycodone/Acetaminophen 1 tab 10/30/24 16:52 10/31/24 08:56 Oxycodone/Acetaminophen (*Crx) 10-325 Mg Tablet PO 1 tab Q6H PRN Administration Pain Rated 7-10 Polyethylene Glycol 17 gm 10/28/24 17:13 Polyethylene Glycol 3350 17 Gm Powd.Pack PO QAM PRN Constipation Senna/Docusate Sodium 2 tab 10/30/24 17:00 10/31/24 08:52 Senna/Docusate Sodium Tablet PO 2 tab BID MARY KAY Administration Radiology Results: ITS Impressions Femur X-Ray 10/28/24 12:32 IMPRESSION: 1. Mildly displaced intertrochanteric fracture of the proximal left femur. Consider a CT for further assessment. 2. Questionable nondisplaced subcapital fracture of the left femoral head. A CT is recommended for further assessment. 3. Oblique lucency in the proximal left tibia. Differential includes vascular channel or acute nondisplaced fracture. Correlate for point tenderness. Consider dedicated x-rays of the left knee for further assessment. Hip/Pelvis X-Ray 10/28/24 12:33 IMPRESSION: 1. Mildly displaced intertrochanteric fracture of the proximal left femur. Consider a CT for further assessment. 2. Questionable nondisplaced subcapital fracture of the left femoral head. A CT is recommended for further assessment. Chest X-Ray 10/28/24 12:36 IMPRESSION: No acute process. Head CT 10/28/24 13:14 IMPRESSION: 1. No evidence for acute intracranial hemorrhage or calvarial fracture. 2. Chronic findings, as above. Pelvis CT 10/28/24 13:18 IMPRESSION: Minimally displaced intertrochanteric fracture of the left femur with mild anterior angulation. Knee X-Ray 10/28/24 13:33 IMPRESSION: 1. No fracture identified. Wrist X-Ray 10/28/24 15:29 IMPRESSION: 1. Fractures of the left radius and left ulna as detailed above. Intraoperative X-Ray 10/30/24 17:10 IMPRESSION: 1. Fluoroscopy utilized during internal fixation of an extra articular fracture of the distal left radius which is now in near-anatomic alignment. 2. Unfixed ulnar styloid avulsion fracture which remains in essentially anatomic alignment. Labs Labs: Laboratory Results - last 24 hr 08/23/25 05:27 WBC 7.8 RBC 3.49 L Hgb 10.9 L Hct 32.5 L MCV 93.1 MCH 31.2 MCHC 33.5 RDW 12.3 Plt Count 100 L MPV 9.7 Immature Gran % (Auto) 0.4 Neut % (Auto) 73.3 H Lymph % (Auto) 16.5 L Grayson % (Auto) 9.4 H Eos % (Auto) 0.3 Baso % (Auto) 0.1 L Lymph # (Auto) 1.28 Grayson # (Auto) 0.7 H Eos # (Auto) 0.0 Baso # (Auto) 0.0 Abs Immat Gran (auto) 0.03 Absolute Neuts (auto) 5.7 Absolute Nucleated RBC 0.000 Nucleated RBC % 0.0 Sodium 130 L Potassium 4.5 Chloride 104 Carbon Dioxide 23 Anion Gap 3 L BUN 10 Creatinine 0.49 L Estim Creat Clear Calc 68 Estimated GFR > 60 Glucose 103 Calcium 8.0 L Quality VTE Prophylaxis VTE prophylaxis: mechanical ordered
[2024-10-31 14:00] VITALS: BP 125/63; PULSE 64; RESP 16; TEMP 36.9; O2SAT 98
--- NOTE | 2024-10-31 15:10 | PC.NURSE ---
Spoke to patient and her about orders to remove hess catheter post op day one. Patient stated she is not ready to turn for a bed gill or get out of bed to use a bed side commode yet. She asked for one more day to get used to ambulating with her cast and requested hess removal to be delayed until post op day 2. Provider notified.
[2024-10-31 20:58] VITALS: BP 152/64; PULSE 77; RESP 16; TEMP 36.8; O2SAT 97
[2024-11-01 05:16] VITALS: BP 138/58; PULSE 85; RESP 16; TEMP 36.6; O2SAT 98
[2024-11-01] MEDS: LEVOTHYROXINE SODIUM 50 MCG TABLET PO (05:19)
[2024-11-01 06:01] LABS: Hematocrit 32.5 % (37.0-47.0); Hemoglobin 10.9 g/dL (12.0-15.0); Mean Corpuscular HGB Conc 33.5 g/dl (32-36); Mean Corpuscular Hemoglobin 31.9 pg (26-34); Mean Corpuscular Volume 95.0 fl (80-100); Platelet Count Result 121 k/mm3 (150-375); Red Blood Count 3.42 M/mm3 (4.2-5.4); White Blood Count 6.5 K/mm3 (4.5-10.0)
[2024-11-01 06:22] LABS: Anion Gap 4 mmol/L (4-12); Blood Urea Nitrogen 12 mg/dL (7-17); Calcium 8.1 mg/dL (8.4-10.2); Carbon Dioxide 24 mmol/L (22-30); Chloride 105 mmol/L (98-107); Estimated CRCL calculation 61 ml/min; Estimated Glomerular Filt Rate > 60; Glucose 106 mg/dL (65-110); Potassium 4.1 mmol/L (3.4-5.0); Sodium 133 mmol/L (137-145)
[2024-11-01 08:17] VITALS: PULSE 85; RESP 16; O2SAT 98
[2024-11-01] MEDS: SENNA/DOCUSATE SODIUM TABLET 2 TAB PO (08:17)
[2024-11-01] MEDS: ENOXAPARIN 40 MG/0.4 ML SYRINGE SUB-Q (08:17)
[2024-11-01] MEDS: CELECOXIB 200 MG CAPSULE PO (08:18)
[2024-11-01] MEDS: MULTIVITAMINS THERAPEUTIC TAB (*BKC) 1 TABLET PO (08:18)
[2024-11-01] MEDS: MAGNESIUM OXIDE 200 MG TABLET PO (08:18)
[2024-11-01] MEDS: FAMOTIDINE 20 MG TABLET PO ×2 (08:18→20:41)
--- NOTE | 2024-11-01 10:19 | P.PNIM_ITS ---
Progress Note: A&P Assessment and Plan (1) Fracture, intertrochanteric, left femur: Qualifiers: Encounter type: initial encounter Fracture alignment: displaced Fracture type: closed Qualified Code(s): S72.142A - Displaced intertrochanteric fracture of left femur, initial encounter for closed fracture Code(s): S72.142A - Displaced intertrochanteric fracture of left femur, initial encounter for closed fracture Status: Acute Assessment and Plan: 10/28 * Femur XR: 1. Mildly displaced intertrochanteric fracture of the proximal left femur. Consider a CT for further assessment. 2. Questionable nondisplaced subcapital fracture of the left femoral head. A CT is recommended for further assessment. 3. Oblique lucency in the proximal left tibia. Differential includes vascular channel or acute nondisplaced fracture. Correlate for point tenderness. Consider dedicated x-rays of the left knee for further assessment. * Hip/pelvic XR: 1. Mildly displaced intertrochanteric fracture of the proximal left femur. Consider a CT for further assessment. 2. Questionable nondisplaced subcapital fracture of the left femoral head. A CT is recommended for further assessment. * Pelvic CT: Minimally displaced intertrochanteric fracture of the left femur wi th mild anterior angulation. - orthopedics consulted. ED spoke with on-call orthopedist, tentative plan for surgical management on Saturday (10/30) - analgesics p.r.n. - bed rest - will need PT/OT eval postop - care coordination consulted for discharge planning/rehab placement as the patient will likely be a poor candidate for home therapy given secondary fracture to the left wrist - will make NPO at midnight in event surgery can be performed tomorrow, patient aware surgery likely to occur on Saturday - monitor labs 10/29 pain/nausea control npo at midnight, anticipate surgery tomorrow 10/30 Left Hip IT Nail by Dr. Patel 10/31 s/p ORIF LEFT DISTAL RADIUS FRACTURE/INSERTION GAMMA JAKUB LEFT HIP doing well. pain is controlled. pt/ot anticipate discharge in [facility] next couople of days once cleared per ortho anticoag as needed per ortho instructions 11/01- [facility] acceptance pending-care coordination following. Anticipate discharge to rehab in the next few days. (2) Fracture, radius, distal: Qualifiers: Encounter type: initial encounter Fracture morphology: unspecified fracture morphology Fracture type: closed Laterality: left Qualified Code(s): S52.502A - Unspecified fracture of the lower end of left radius, initial encounter for closed fracture Code(s): S52.509A - Unspecified fracture of the lower end of unspecified radius, initial encounter for closed fracture Status: Acute Assessment and Plan: 10/28 * Wrist XR (L): Acute displaced fracture of the distal radius with posterior displacement of the distal fracture segment. Minimally displaced fracture of the ulnar styloid process. Surrounding soft tissue swelling. Joint space narrowing, subchondral sclerosis, subchondral cyst formation and osteophyte formation, compatible with moderate osteoarthritis. - orthopedist consulted. ED provider spoke with injection wax molder orthopedist, tentative plan for surgical management on Saturday during concurrent surgical management of left femur fracture - analgesics p.r.n. - will need PT/OT eval postop - care coordination consulted - brace placed in the ED npo tonight, surgery in am 10/30- Left Hip IT Nail by Dr. Patel 11/01- [facility] acceptance pending-care coordination following. Anticipate discharge t o rehab in the next few days. Pain is controlled. (3) Fracture of styloid process of left ulna: Qualifiers: Encounter type: initial encounter Fracture alignment: displaced Fracture type: closed Qualified Code(s): S52.612A - Displaced fracture of left ulna styloid process, initial encounter for closed fracture Code(s): S52.612A - Displaced fracture of left ulna styloid process, initial encounter for closed fracture Status: Acute Assessment and Plan: - see above (4) Hypothyroidism: Qualifiers: Hypothyroidism type: unspecified Qualified Code(s): E03.9 - Hypothyroidism, unspecified Code(s): E03.9 - Hypothyroidism, unspecified Status: Chronic Assessment and Plan: - continue home medication: Synthroid Plan Diet: advance as tolerated after surgery (reguar) GI Prophylaxis: N/a DVT Prophylaxis: SCDs IV fluids: LR 100 mL/hour x1 L Lines/Tubes: Peripheral IV Code Status: Full code Time Spent With Patient Time with patient: 25 - 35 minutes Subjective Date/time seen: 11/01/24 10:19 Interval history: 74 y/o F with PMH of hypothyroidism and anxiety presents here with a fall. The patient presents here from home via EMS for further evaluation of left wrist and left hip pain s/p fall. The patient reports she was standing on a chair changing a light bulb when she lost her balance and fell onto her left side. She reports pain to her left wrist and left hip post fall. She was unable to ambulate afterwards. She denies a head strike or loss of consciousness. Post fall she denies neck pain, headache, dizziness, focal weakness, focal numbness, nausea, or vomiting. She is not on chronic anticoagulation. Per chart review, the patient has a orthopedic history significant for a mildly displaced greater tuberosity fracture of the left shoulder in November of 2023. Patient was treated non operatively. 10/29 assuming care. Pt is seen and examined. She is comfortable, pain is overall under control. NPO at midnight, anticipate surgery tomorrow. 10/30 Left Hip IT Nail by Dr. Patel today 10/31 doing fairly well. Pain mostly to lt wrist but taking pain meds. No nausea. working with PT/OT using IS. has miralax as needed. 11/01 pt is seen and examined. Sheis working with PT/OT-doing well. Had BM this morning. Care coordination working for placement ([facility]). Pt refused to have her hess to be removed yesterday but agreable today. Painis controleld, no nausea. Review of Systems Review of Systems: All systems reviewed & are unremarkable except as noted in HPI and below Exam Const: General: comfortable and no acute distress Other: , female, elderly, nontoxic appearance HENMT: Face/Nose/Sinus: Normal nares present Mouth: Yes moist mucous membranes Eyes: General: appearance normal, both eyes and all related structures Sclera: sclerae normal Pupils: Equal, round and reactive pupils present EOM: EOMs intact bilaterally Resp: Effort & Inspection: normal respiratory effort Auscultation: clear to auscultation bilaterally Other: Nasal cannula place, tolerating well Cardio: Rate: regular rate Rhythm: regular rhythm Other: S1-S2 present without murmur, rub, ectopy GI: Other: Abdomen soft, nondistended, nontender. Normoactive bowel sounds in all qu adrants. Skin: General skin exam: normal color and no rashes or lesions noted Wounds: no wounds Neuro: Cranial nerves: Yes Equal, round and reactive pupils present Speech: normal speech Sensory Exam: normal sensation Other: A&O x4. Extrem: Other: Cap refill brisk in the left upper extremity. Left lower extremity remains warm and pulses intact. No edema noted. Psych: Mental Status: mental status grossly normal Affect: normal affect Other: Good insight and judgment, pleasant Objective Data Vital Signs Vital Signs: Vital Signs - 24 hr 10/31/24 14:00 10/31/24 20:00 10/31/24 20:58 Temperature 98.4 F 98.3 F Pulse Rate 64 77 Respiratory Rate 16 16 Blood Pressure 125/63 152/64 H Pulse Oximetry 98 97 Oxygen Delivery Room Air 11/01/24 05:16 11/01/24 08:17 Temperature 97.8 F Pulse Rate 85 85 Respiratory Rate 16 16 Blood Pressure 138/58 L Pulse Oximetry 98 98 Oxygen Delivery Room Air Intake/Output Intake/Output: Intake & Output 10/29/24 10/30/24 10/31/24 11/01/24 23:59 23:59 23:59 23:59 Intake Total 5377 821 0446 240 Output Total 1950 2950 1999 1200 Balance -350 -2010 -252 -960 Meds/Results Medications: Active Medications Generic Name Dose Route Start Last Admin Trade Name Freq PRN Reason Stop Dose Admin Acetaminophen 500 mg 10/30/24 16:52 Acetaminophen 500 Mg Tablet PO Q6H PRN Pain Rated 1-3 Hydrocodone Bitart/Acetaminophen 1 tab 10/30/24 16:52 10/31/24 23:32 Hydrocodone/Acetaminophen (*Crx) 5-325 Mg Tablet PO 1 tab Q4H PRN Administration Pain Rated 4-6 Celecoxib 200 mg 10/31/24 08:00 11/01/24 08:18 Celecoxib 200 Mg Capsule PO 200 mg DAILY@0800 MARY KAY Administration Diazepam 5 mg 10/30/24 16:52 Diazepam (*Crx) 5 Mg Tablet PO Q8H PRN Muscle Spasm Enoxaparin Sodium 40 mg 10/31/24 09:00 11/01/24 08:17 Enoxaparin 40 Mg/0.4 Ml Syringe SUB-Q 40 mg DAILY MARY KAY Administration Famotidine 20 mg 10/30/24 21:00 11/01/24 08:18 Famotidine 20 Mg Tablet PO 20 mg Q12HR MARY KAY Administration Hydromorphone HCl 1 mg 10/30/24 16:52 Hydromorphone Hcl Inj (*Crx) 1 Mg/Ml Syr IV PUSH Q2H PRN Breakthrough Pain Rated 7-10 or NPO Hydromorphone HCl 0.5 mg 10/30/24 16:52 Hydromorphone Hcl Inj (*Crx) 1 Mg/Ml Syr IV PUSH Q2H PRN Breakthrough Pain Rated 4-6 or NPO Hydroxyzine Pamoate 50 mg 10/30/24 16:52 10/31/24 08:52 Hydroxyzine Pamoate 25 Mg Capsule PO 50 mg Q4H PRN Administration Itching Ibuprofen 800 mg in 200 mls @ 400 mls/hr 10/30/24 16:52 Caldolor 800 Mg/200 Ml IVPB Q6H PRN Breakthrough Pain Rated 1-3 or NPO Levothyroxine Sodium 50 mcg 10/29/24 06:30 11/01/24 05:19 Levothyroxine Sodium 50 Mcg Tablet PO 50 mcg DAILY@0630 MARY KAY Administration Magnesium Oxide 200 mg 10/29/24 09:00 11/01/24 08:18 Magnesium Oxide 200 Mg Tablet PO 200 mg DAILY MARY KAY Administration Multivitamins Therapeutic 1 tablet 10/31/24 09:00 11/01/24 08:18 Multivitamins Therapeutic Tab (*Bkc) PO 1 tablet QAM MARY KAY Administration Naloxone HCl 0.1 mg 10/28/24 17:12 Naloxone Hcl 0.4 Mg/Ml Vial IV PUSH Q5MIN PRN Sedation Ondansetron HCl 4 mg 10/28/24 17:13 Ondansetron Hcl Odt 4 Mg Tablet PO Q6H PRN Nausea And Vomiting Oxycodone/Acetaminophen 1 tab 10/30/24 16:52 10/31/24 08:56 Oxycodone/Acetaminophen (*Crx) 10-325 Mg Tablet PO 1 tab Q6H PRN Administration Pain Rated 7-10 Polyethylene Glycol 17 gm 10/28/24 17:13 Polyethylene Glycol 3350 17 Gm Powd.Pack PO QAM PRN Constipation Senna/Docusate Sodium 2 tab 10/30/24 17:00 11/01/24 08:17 Senna/Docusate Sodium Tablet PO 2 tab BID MARY KAY Administration Radiology Results: ITS Impressions Femur X-Ray 10/28/24 12:32 IMPRESSION: 1. Mildly displaced intertrochanteric fracture of the proximal left femur. Consider a CT for further assessment. 2. Questionable nondisplaced subcapital fracture of the left femoral head. A CT is recommended for further assessment. 3. Oblique lucency in the proximal left tibia. Differential includes vascular channel or acute nondisplaced fracture. Correlate for point tenderness. Consider dedicated x-rays of the left knee for further assessment. Hip/Pelvis X-Ray 10/28/24 12:33 IMPRESSION: 1. Mildly displaced intertrochanteric fracture of the proximal left femur. C onsider a CT for further assessment. 2. Questionable nondisplaced subcapital fracture of the left femoral head. A CT is recommended for further assessment. Chest X-Ray 10/28/24 12:36 IMPRESSION: No acute process. Head CT 10/28/24 13:14 IMPRESSION: 1. No evidence for acute intracranial hemorrhage or calvarial fracture. 2. Chronic findings, as above. Pelvis CT 10/28/24 13:18 IMPRESSION: Minimally displaced intertrochanteric fracture of the left femur with mild anterior angulation. Knee X-Ray 10/28/24 13:33 IMPRESSION: 1. No fracture identified. Wrist X-Ray 10/28/24 15:29 IMPRESSION: 1. Fractures of the left radius and left ulna as detailed above. Intraoperative X-Ray 10/30/24 17:10 IMPRESSION: 1. Fluoroscopy utilized during internal fixation of an extra articular fracture of the distal left radius which is now in near-anatomic alignment. 2. Unfixed ulnar styloid avulsion fracture which remains in essentially anatomic alignment. Labs Labs: Laboratory Results - last 24 hr 11/01/24 05:57 WBC 6.5 RBC 3.42 L Hgb 10.9 L Hct 32.5 L MCV 95.0 MCH 31.9 MCHC 33.5 RDW 12.5 Plt Count 121 L MPV 9.5 Sodium 133 L Potassium 4.1 Chloride 105 Carbon Dioxide 24 Anion Gap 4 BUN 12 Creatinine 0.56 L Estim Creat Clear Calc 61 Estimated GFR > 60 Glucose 106 Calcium 8.1 L Quality VTE Prophylaxis VTE prophylaxis: mechanical ordered
[2024-11-01] MEDS: HYDROmorphone HCL INJ (*CRX) 1 MG/ML SYR 0.5 MG IV PUSH (10:32)
[2024-11-01 13:35] VITALS: O2SAT 98
[2024-11-01 13:56] VITALS: BP 126/57; PULSE 71; RESP 14; TEMP 36.4; O2SAT 98
[2024-11-01 19:53] VITALS: O2SAT 98
[2024-11-01] MEDS: oxyCODONE/ACETAMINOPHEN (*CRX) 10-325 MG TABLET 1 TAB PO (21:32)
[2024-11-01 22:17] VITALS: BP 144/63; PULSE 74; RESP 18; TEMP 36.7; O2SAT 96
[2024-11-02 02:30] VITALS: BP 158/67; PULSE 73; RESP 18; TEMP 36.3; O2SAT 96
[2024-11-02 05:24] VITALS: BP 160/63; PULSE 65; RESP 18; TEMP 36.4; O2SAT 100
[2024-11-02] MEDS: LEVOTHYROXINE SODIUM 50 MCG TABLET PO (05:37)
--- NOTE | 2024-11-02 07:01 | PM.IMPN ---
Progress Note: A&P Assessment and Plan (1) Fracture, intertrochanteric, left femur: Qualifiers: Encounter type: initial encounter Fracture alignment: displaced Fracture type: closed Qualified Code(s): S72.142A - Displaced intertrochanteric fracture of left femur, initial encounter for closed fracture Code(s): S72.142A - Displaced intertrochanteric fracture of left femur, initial encounter for closed fracture Status: Acute Assessment and Plan: Femur XR: 1. Mildly displaced intertrochanteric fracture of the proximal left femur. Consider a CT for further assessment. 2. Questionable nondisplaced subcapital fracture of the left femoral head. A CT is recommended for further assessment. 3. Oblique lucency in the proximal left tibia. Differential includes vascular channel or acute nondisplaced fracture. Correlate for point tenderness. Consider dedicated x-rays of the left knee for further assessment. Hip/pelvic XR: 1. Mildly displaced intertrochanteric fracture of the proximal left femur. Consider a CT for further assessment. 2. Questionable nondisplaced subcapital fracture of the left femoral head. A CT is recommended for further assessment. Pelvic CT: Minimally displaced intertrochanteric fracture of the left femur with mild anterior angulation. - analgesics p.r.n. - will need PT/OT eval postop recommend [facility] weight bearing as tolerated per ortho recommendations - care coordination consulted for discharge planning/rehab placement as the patient will likely be a poor candidate for home therapy given fracture to the left wrist [facility] accepting, authorization being sent - monitor labs - orthopedics consulted. s/p insertion gamma magi left hip with Dr. Patel on 10/30 (2) Fracture, radius, distal: Qualifiers: Encounter type: initial encounter Fracture morphology: unspecified fracture morphology Fracture type: closed Laterality: left Qualified Code(s): S52.502A - Unspecified fracture of the lower end of left radius, initial encounter for closed fracture Code(s): S52.509A - Unspecified fracture of the lower end of unspecified radius, initial encounter for closed fracture Status: Acute Assessment and Plan: 10/28 Wrist XR (L): Acute displaced fracture of the distal radius with posterior displacement of the distal fracture segment. Minimally displaced fracture of the ulnar styloid process. Surrounding soft tissue swelling. Joint space narrowing, subchondral sclerosis, subchondral cyst formation and osteophyte formation, compatible with moderate osteoarthritis. - analgesics p.r.n. - brace placed in the ED - will need PT/OT eval postop recommend [facility] weight bearing as tolerated per ortho recommendations - care coordination consulted for discharge planning/rehab placement as the patient will likely be a poor candidate for home therapy given fracture to the left wrist [facility] accepting, authorization being sent - orthopedist consulted. s/p ORIF left distal radius fracture on 10/[address] Patel (3) Fracture of styloid process of left ulna: Qualifiers: Encounter type: initial encounter Fracture alignment: displaced Fracture type: closed Qualified Code(s): S52.612A - Displaced fracture of left ulna styloid process, initial encounter for closed fracture Code(s): S52.612A - Displaced fracture of left ulna styloid process, initial encounter for closed fracture Status: Acute Assessment and Plan: - see above (4) Hypothyroidism: Qualifiers: Hypothyroidism type: unspecified Qualified Code(s): E03.9 - Hypothyroidism, unspecified Code(s): E03.9 - Hypothyroidism, unspecified Status: Chronic Assessment and Plan: - continue home medication: Synthroid 50 mcg daily Time Spent With Patient Time with patient: 25 - 35 minutes Subjective Date/time seen: 11/02/24 07:01 Interval history: 74 y/o F with PMH of hypothyroidism and anxiety presents to the hospital with a fall. Patient's is pleasant sitting up comfortably on the side of the bed. She states that pain is well controlled on the current regimen. She notes that she is working well with physical therapy/occupational therapy. She has no other complaints denying chest pain, shortness a breath, palpitations, nausea/vomiting, abdominal pain, dizziness/lightheadedness. Care coordination continues to follow as PT/OT recommending placement for rehab, authorization being sent today. Review of Systems Review of Systems: All systems reviewed & are unremarkable except as noted in HPI and below Exam Narrative: AF HR 65 RR 18 SpO2 100 BP 160/63 General: female in no acute respiratory distress who is nontoxic appearing, sitting on side of bed HEENT: Normocephalic. Atraumatic. Extraocular movement intact. Sclera clear and anicteric. No facial asymmetry. Chest: Lungs are clear to auscultation bilaterally. No wheezes or crackles. CV: Heart was regular rate and rhythm. S1-S2. No murmurs, gallops, or rubs. Abd: Abdomen was soft. Nontender. Nondistended. Positive bowel sounds. Ext: No clubbing, cyanosis, or edema. DP pulses bilaterally. Left hip swelling, dressing clean/dry/intact. Left wrist with matt wrap in place, swelling and bruising noted to the PIP joint. Movement intact. Good inspector handbag frames strengths. Neuro: Patient is alert and oriented x4. Speech is clear. Objective Data Vital Signs Vital Signs: Vital Signs - 24 hr 11/01/24 08:17 11/01/24 13:35 11/01/24 13:56 Temperature 97.6 F Pulse Rate 85 71 Respiratory Rate 16 14 Blood Pressure 126/57 L Pulse Oximetry 98 98 98 Oxygen Delivery Room Air Room Air 11/01/24 19:53 11/01/24 20:22 11/01/24 22:17 Temperature 98.0 F Pulse Rate 74 Respiratory Rate 18 Blood Pressure 144/63 H Pulse Oximetry 98 96 Oxygen Delivery Room Air Room Air 11/02/24 02:30 11/02/24 05:24 Temperature 97.3 F L 97.5 F L Pulse Rate 73 65 Respiratory Rate 18 18 Blood Pressure 158/67 H 160/63 H Pulse Oximetry 96 100 Oxygen Delivery Intake/Output Intake/Output: Intake & Output 10/30/24 10/31/24 11/01/24 11/02/24 23:59 23:59 23:59 23:59 Intake Total 940 1748 600 400 Output Total 2950 1999 2099 [facility] 728 -1939 400 Meds/Results Medications: Active Medications Generic Name Dose Route Start Last Admin Trade Name Freq PRN Reason Stop Dose Admin Acetaminophen 500 mg 10/30/24 16:52 Acetaminophen 500 Mg Tablet PO Q6H PRN Pain Rated 1-3 Hydrocodone Bitart/Acetaminophen 1 tab 10/30/24 16:52 10/31/24 23:32 Hydrocodone/Acetaminophen (*Crx) 5-325 Mg Tablet PO 1 tab Q4H PRN Administration Pain Rated 4-6 Celecoxib 200 mg 10/31/24 08:00 11/01/24 08:18 Celecoxib 200 Mg Capsule PO 200 mg DAILY@0800 MARY KAY Administration Diazepam 5 mg 10/30/24 16:52 Diazepam (*Crx) 5 Mg Tablet PO Q8H PRN Muscle Spasm Enoxaparin Sodium 40 mg 10/31/24 09:00 11/01/24 08:17 Enoxaparin 40 Mg/0.4 Ml Syringe SUB-Q 40 mg DAILY [facility] Administration Famotidine 20 mg 10/30/24 21:00 11/01/24 20:41 Famotidine 20 Mg Tablet PO 20 mg Q12HR [facility] Administration Hydroxyzine Pamoate 50 mg 10/30/24 16:52 10/31/24 08:52 Hydroxyzine Pamoate 25 Mg Capsule PO 50 mg Q4H PRN Administration Itching Ibuprofen 800 mg in 200 mls @ 400 mls/hr 10/30/24 16:52 Caldolor 800 Mg/200 Ml IVPB Q6H PRN Breakthrough Pain Rated 1-3 or NPO Levothyroxine Sodium 50 mcg 10/29/24 06:30 11/02/24 05:37 Levothyroxine Sodium 50 Mcg Tablet PO 50 mcg DAILY@0630 [facility] Administration Magnesium Oxide 200 mg 10/29/24 09:00 11/01/24 08:18 Magnesium Oxide 200 Mg Tablet PO 200 mg DAILY [facility] Administration Multivitamins Therapeutic 1 tablet 10/31/24 09:00 11/01/24 08:18 Multivitamins Therapeutic Tab (*Bkc) PO 1 tablet QAM [facility] Administration Naloxone HCl 0.1 mg 10/28/24 17:12 Naloxone Hcl 0.4 Mg/Ml Vial IV PUSH Q5MIN PRN Sedation Ondansetron HCl 4 mg 10/28/24 17:13 Ondansetron Hcl Odt 4 Mg Tablet PO Q6H PRN Nausea And Vomiting Oxycodone/Acetaminophen 1 tab 10/30/24 16:52 11/01/24 21:32 Oxycodone/Acetaminophen (*Crx) 10-325 Mg Tablet PO 1 tab Q6H PRN Administration Pain Rated 7-10 Polyethylene Glycol 17 gm 10/28/24 17:13 Polyethylene Glycol 3350 17 Gm Powd.Pack PO QAM PRN Constipation Senna/Docusate Sodium 2 tab 10/30/24 17:00 11/01/24 17:13 Senna/Docusate Sodium Tablet PO Not Given BID [facility] Radiology Results: ITS Impressions Femur X-Ray 10/28/24 12:32 IMPRESSION: 1. Mildly displaced intertrochanteric fracture of the proximal left femur. Consider a CT for further assessment. 2. Questionable nondisplaced subcapital fracture of the left femoral head. A CT is recommended for further assessment. 3. Oblique lucency in the proximal left tibia. Differential includes vascular channel or acute nondisplaced fracture. Correlate for point tenderness. Consider dedicated x-rays of the left knee for further assessment. Hip/Pelvis X-Ray 10/28/24 12:33 IMPRESSION: 1. Mildly displaced intertrochanteric fracture of the proximal left femur. Consider a CT for further assessment. 2. Questionable nondisplaced subcapital fracture of the left femoral head. A CT is recommended for further assessment. Chest X-Ray 10/28/24 12:36 IMPRESSION: No acute process. Head CT 10/28/24 13:14 IMPRESSION: 1. No evidence for acute intracranial hemorrhage or calvarial fracture. 2. Chronic findings, as above. Pelvis CT 10/28/24 13:18 IMPRESSION: Minimally displaced intertrochanteric fracture of the left femur with mild anterior angulation. Knee X-Ray 10/28/24 13:33 IMPRESSION: 1. No fracture identified. Wrist X-Ray 10/28/24 15:29 IMPRESSION: 1. Fractures of the left radius and left ulna as detailed above. Intraoperative X-Ray 10/30/24 17:10 IMPRESSION: 1. Fluoroscopy utilized during internal fixation of an extra articular fracture of the distal left radius which is now in near-anatomic alignment. 2. Unfixed ulnar styloid avulsion fracture which remains in essentially anatomic alignment. Quality VTE Prophylaxis VTE prophylaxis: mechanical ordered
[2024-11-02 07:17] LABS: Hematocrit 34.8 % (37.0-47.0); Hemoglobin 11.8 g/dL (12.0-15.0); Mean Corpuscular HGB Conc 33.9 g/dl (32-36); Mean Corpuscular Hemoglobin 31.4 pg (26-34); Mean Corpuscular Volume 92.6 fl (80-100); Platelet Count Result 150 k/mm3 (150-375); Red Blood Count 3.76 M/mm3 (4.2-5.4); White Blood Count 6.6 K/mm3 (4.5-10.0)
[2024-11-02 07:40] LABS: Alanine Aminotransferase 19 U/L (6-35); Albumin Level 3.5 g/dL (3.5-5.1); Alkaline Phosphatase 75 U/L (38-126); Anion Gap 7 mmol/L (4-12); Aspartate Amino Transferase 30 U/L (14-36); Bilirubin,Total 1.1 mg/dL (0.2-1.3); Blood Urea Nitrogen 10 mg/dL (7-17); Calcium 8.6 mg/dL (8.4-10.2); Carbon Dioxide 23 mmol/L (22-30); Chloride 102 mmol/L (98-107); Estimated CRCL calculation 62 ml/min; Estimated Glomerular Filt Rate > 60; Glucose 106 mg/dL (65-110); Potassium 3.8 mmol/L (3.4-5.0); Sodium 132 mmol/L (137-145); Total Protein 6.8 g/dL (6.3-8.2)
[2024-11-02] MEDS: CELECOXIB 200 MG CAPSULE PO (08:12)
[2024-11-02] MEDS: FAMOTIDINE 20 MG TABLET PO ×2 (08:12→20:18)
[2024-11-02] MEDS: MULTIVITAMINS THERAPEUTIC TAB (*BKC) 1 TABLET PO (08:12)
[2024-11-02] MEDS: MAGNESIUM OXIDE 200 MG TABLET PO (08:12)
[2024-11-02] MEDS: ENOXAPARIN 40 MG/0.4 ML SYRINGE SUB-Q (08:12)
--- NOTE | 2024-11-02 12:16 | PM.PNORT ---
Progress Note: A&P Assessment and Plan (1) Closed intertrochanteric fracture of left femur: Qualifiers: Encounter type: initial encounter Fracture alignment: nondisplaced Qualified Code(s): S72.145A - Nondisplaced intertrochanteric fracture of left femur, initial encounter for closed fracture Code(s): S72.142A - Displaced intertrochanteric fracture of left femur, initial encounter for closed fracture Status: Acute Assessment and Plan: POD#3: ORIF Left Wrist, INSERTION GAMMA JAKUB LEFT HIP Continue PT/OT. WBAT b/l LE. Walker. HIGH FALL RISK. Continue pain control. Ice hip/wrist. Protect skin. DVT prophylaxis with Lovenox. SCDs. Incentive Spirometry Use reviewed. Monitor Dressing. Change daily. Bowel Regimen. Dispo: [facility] pending progress with PT/OT 2 week follow up (2) Fracture, radius, distal: Qualifiers: Encounter type: initial encounter Fracture morphology: unspecified fracture morphology Fracture type: closed Laterality: left Qualified Code(s): S52.502A - Unspecified fracture of the lower end of left radius, initial encounter for closed fracture Code(s): S52.509A - Unspecified fracture of the lower end of unspecified radius, initial encounter for closed fracture Status: Acute Assessment and Plan: [facility]. Splint intact. Keep splint c/d/i. 2 week follow up for suture removal. Subjective Subjective Date/Time Seen: 11/02/24 12:16 Post Op day: 3 Interval history: POD#1: ORIF Left Wrist, INSERTION GAMMA JAKUB LEFT HIP Patient doing well. Pain well controlled. No new concerns. Awaiting arrangements for placement to [facility]. Review of Systems Review of Systems: All systems reviewed & are unremarkable except as noted in HPI and below Exam Const: General: comfortable and no acute distress Resp: Effort & Inspection: normal respiratory effort Cardio: Rate: regular rate Rhythm: regular rhythm Neuro: Sensory Exam: normal sensation Extrem: Left upper extremity: wrist (splint c/d/i. ) normal to inspection, tenderness of the distal radius and radial pulse present 2+ and hand (sensation intact. ) normal to inspection and normal capillary refill Left lower extremity: hip/thigh Details: tenderness Location: of the hip Location: laterally and abnormal ROM Details: pain with active ROM Details: with internal rotation and with external rotation; no ecchymosis, knee Details: normal to inspection, lower leg (Negative Alondra's Sign ), ankle Details: normal to inspection; no tenderness and no swelling and foot Details: normal capillary refill, toes with normal ROM and vascular exam Details: dorsalis pedis pulse present; no tenderness Objective Data Vital Signs Vital Signs: Vital Signs - 24 hr 11/01/24 13:35 11/01/24 13:56 11/01/24 19:53 Temperature 36.4 C Pulse Rate 71 Respiratory Rate 14 Blood Pressure 126/57 L Pulse Oximetry 98 98 98 Oxygen Delivery Room Air Room Air 11/01/24 20:22 11/01/24 22:17 11/02/24 02:30 Temperature 36.7 C 36.3 C L Pulse Rate 74 73 Respiratory Rate 18 18 Blood Pressure 144/63 H 158/67 H Pulse Oximetry 96 96 Oxygen Delivery Room Air 11/02/24 05:24 11/02/24 08:10 Temperature 36.4 C L Pulse Rate 65 Respiratory Rate 18 Blood Pressure 160/63 H Pulse Oximetry 100 Oxygen Delivery Room Air Intake/Output Intake/Output: Intake & Output 10/30/24 10/31/24 11/01/24 11/02/24 23:59 23:59 23:59 23:59 Intake Total 940 1748 600 640 Output Total 2950 1999 2099 [facility] [phone] Meds/Results Medications: Active Medications Generic Name Dose Route Start Last Admin Trade Name Freq PRN Reason Stop Dose Admin Acetaminophen 500 mg 10/30/24 16:52 Acetaminophen 500 Mg Tablet PO Q6H PRN Pain Rated 1-3 Hydrocodone Bitart/Acetaminophen 1 tab 10/30/24 16:52 10/31/24 23:32 Hydrocodone/Acetaminophen (*Crx) 5-325 Mg Tablet PO 1 tab Q4H PRN Administration Pain Rated 4-6 Celecoxib 200 mg 10/31/24 08:00 11/02/24 08:12 Celecoxib 200 Mg Capsule PO 200 mg DAILY@0800 MARY KAY Administration Diazepam 5 mg 10/30/24 16:52 Diazepam (*Crx) 5 Mg Tablet PO Q8H PRN Muscle Spasm Enoxaparin Sodium 40 mg 10/31/24 09:00 11/02/24 08:12 Enoxaparin 40 Mg/0.4 Ml Syringe SUB-Q 40 mg DAILY MARY KAY Administration Famotidine 20 mg 10/30/24 21:00 11/02/24 08:12 Famotidine 20 Mg Tablet PO 20 mg Q12HR [facility] Administration Hydroxyzine Pamoate 50 mg 10/30/24 16:52 10/31/24 08:52 Hydroxyzine Pamoate 25 Mg Capsule PO 50 mg Q4H PRN Administration Itching Ibuprofen 800 mg in 200 mls @ 400 mls/hr 10/30/24 16:52 Caldolor 800 Mg/200 Ml IVPB Q6H PRN Breakthrough Pain Rated 1-3 or NPO Levothyroxine Sodium 50 mcg 10/29/24 06:30 11/02/24 05:37 Levothyroxine Sodium 50 Mcg Tablet PO 50 mcg DAILY@0630 [facility] Administration Magnesium Oxide 200 mg 10/29/24 09:00 11/02/24 08:12 Magnesium Oxide 200 Mg Tablet PO 200 mg DAILY [facility] Administration Multivitamins Therapeutic 1 tablet 10/31/24 09:00 11/02/24 08:12 Multivitamins Therapeutic Tab (*Bkc) PO 1 tablet QAM [facility] Administration Naloxone HCl 0.1 mg 10/28/24 17:12 Naloxone Hcl 0.4 Mg/Ml Vial IV PUSH Q5MIN PRN Sedation Ondansetron HCl 4 mg 10/28/24 17:13 Ondansetron Hcl Odt 4 Mg Tablet PO Q6H PRN Nausea And Vomiting Oxycodone/Acetaminophen 1 tab 10/30/24 16:52 11/01/24 21:32 Oxycodone/Acetaminophen (*Crx) 10-325 Mg Tablet PO 1 tab Q6H PRN Administration Pain Rated 7-10 Polyethylene Glycol 17 gm 10/28/24 17:13 Polyethylene Glycol 3350 17 Gm Powd.Pack PO QAM PRN Constipation Senna/Docusate Sodium 2 tab 10/30/24 17:00 11/02/24 08:13 Senna/Docusate Sodium Tablet PO Not Given BID [facility] Radiology Results: ITS Impressions Femur X-Ray 10/28/24 12:32 IMPRESSION: 1. Mildly displaced intertrochanteric fracture of the proximal left femur. Consider a CT for further assessment. 2. Questionable nondisplaced subcapital fracture of the left femoral head. A CT is recommended for further assessment. 3. Oblique lucency in the proximal left tibia. Differential includes vascular channel or acute nondisplaced fracture. Correlate for point tenderness. Consider dedicated x-rays of the left knee for further assessment. Hip/Pelvis X-Ray 10/28/24 12:33 IMPRESSION: 1. Mildly displaced intertrochanteric fracture of the proximal left femur. Consider a CT for further assessment. 2. Questionable nondisplaced subcapital fracture of the left femoral head. A CT is recommended for further assessment. Chest X-Ray 10/28/24 12:36 IMPRESSION: No acute process. Head CT 10/28/24 13:14 IMPRESSION: 1. No evidence for acute intracranial hemorrhage or calvarial fracture. 2. Chronic findings, as above. Pelvis CT 10/28/24 13:18 IMPRESSION: Minimally displaced intertrochanteric fracture of the left femur with mild anterior angulation. Knee X-Ray 10/28/24 13:33 IMPRESSION: 1. No fracture identified. Wrist X-Ray 10/28/24 15:29 IMPRESSION: 1. Fractures of the left radius and left ulna as detailed above. Intraoperative X-Ray 10/30/24 17:10 IMPRESSION: 1. Fluoroscopy utilized during internal fixation of an extra articular fracture of the distal left radius which is now in near-anatomic alignment. 2. Unfixed ulnar styloid avulsion fracture which remains in essentially anatomic alignment. Labs Labs: Laboratory Results - last 24 hr 11/02/24 07:10 WBC 6.6 RBC 3.76 L Hgb 11.8 L Hct 34.8 L MCV 92.6 MCH 31.4 MCHC 33.9 RDW 12.6 Plt Count 150 MPV 9.1 Sodium 132 L Potassium 3.8 Chloride 102 Carbon Dioxide 23 Anion Gap 7 BUN 10 Creatinine 0.55 L Estim Creat Clear Calc 62 Estimated GFR > 60 Glucose 106 Calcium 8.6 Total Bilirubin 1.1 AST 30 ALT 19 Alkaline Phosphatase 75 Total Protein 6.8 Albumin 3.5
[2024-11-02 13:58] VITALS: BP 131/59; PULSE 68; RESP 14; TEMP 36.4; O2SAT 98
[2024-11-02 19:45] VITALS: PULSE 77; O2SAT 96
[2024-11-02 22:00] VITALS: BP 173/67; PULSE 69; RESP 18; TEMP 36.3; O2SAT 100
[2024-11-02] MEDS: HYDROcodone/acetaminophen (*CRX) 5-325 MG TABLET 1 TAB PO (22:36)
[2024-11-03 06:33] VITALS: BP 146/84; PULSE 66; RESP 18; TEMP 37; O2SAT 96
[2024-11-03] MEDS: LEVOTHYROXINE SODIUM 50 MCG TABLET PO (06:36)
--- NOTE | 2024-11-03 07:38 | PM.IMPN ---
Progress Note: A&P Assessment and Plan (1) Fracture, intertrochanteric, left femur: Qualifiers: Encounter type: initial encounter Fracture alignment: displaced Fracture type: closed Qualified Code(s): S72.142A - Displaced intertrochanteric fracture of left femur, initial encounter for closed fracture Code(s): S72.142A - Displaced intertrochanteric fracture of left femur, initial encounter for closed fracture Status: Acute Assessment and Plan: Femur XR: 1. Mildly displaced intertrochanteric fracture of the proximal left femur. Consider a CT for further assessment. 2. Questionable nondisplaced subcapital fracture of the left femoral head. A CT is recommended for further assessment. 3. Oblique lucency in the proximal left tibia. Differential includes vascular channel or acute nondisplaced fracture. Correlate for point tenderness. Consider dedicated x-rays of the left knee for further assessment. Hip/pelvic XR: 1. Mildly displaced intertrochanteric fracture of the proximal left femur. Consider a CT for further assessment. 2. Questionable nondisplaced subcapital fracture of the left femoral head. A CT is recommended for further assessment. Pelvic CT: Minimally displaced intertrochanteric fracture of the left femur with mild anterior angulation. - analgesics p.r.n. - will need PT/OT eval postop weight bearing as tolerated per ortho recommendations - care coordination consulted for discharge planning/rehab placement as the patient will likely be a poor candidate for home therapy given fracture to the left wrist Plan for [facility] vs SNF, authorization being sent - DVT ppx: Lovenoex - orthopedics consulted. s/p insertion gamma magi left hip with Dr. Patel on 10/30 will need 2 week follow up in the office (2) Fracture, radius, distal: Qualifiers: Encounter type: initial encounter Fracture morphology: unspecified fracture morphology Fracture type: closed Laterality: left Qualified Code(s): S52.502A - Unspecified fracture of the lower end of left radius, initial encounter for closed fracture Code(s): S52.509A - Unspecified fracture of the lower end of unspecified radius, initial encounter for closed fracture Status: Acute Assessment and Plan: Wrist XR (L): Acute displaced fracture of the distal radius with posterior displacement of the distal fracture segment. Minimally displaced fracture of the ulnar styloid process. Surrounding soft tissue swelling. Joint space narrowing, subchondral sclerosis, subchondral cyst formation and osteophyte formation, compatible with moderate osteoarthritis. - analgesics p.r.n. - brace placed in the ED - will need PT/OT eval postop recommend [facility] non weight bearing left upper extremity per ortho recommendations - care coordination consulted for discharge planning/rehab placement as the patient will likely be a poor candidate for home therapy given fracture to the left wrist Plan for [facility] vs SNF, authorization being sent - orthopedist consulted. s/p ORIF left distal radius fracture on 10/[address] Patel 2 week follow up in office for suture removal (3) Fracture of styloid process of left ulna: Qualifiers: Encounter type: initial encounter Fracture alignment: displaced Fracture type: closed Qualified Code(s): S52.612A - Displaced fracture of left ulna styloid process, initial encounter for closed fracture Code(s): S52.612A - Displaced fracture of left ulna styloid process, initial encounter for closed fracture Status: Acute Assessment and Plan: - see above (4) Hypothyroidism: Qualifiers: Hypothyroidism type: unspecified Qualified Code(s): E03.9 - Hypothyroidism, unspecified Code(s): E03.9 - Hypothyroidism, unspecified Status: Chronic Assessment and Plan: - continue home medication: Synthroid 50 mcg daily Time Spent With Patient Time with patient: 25 - 35 minutes Subjective Date/time seen: 11/03/24 07:38 Interval history: 74 y/o F with PMH of hypothyroidism and anxiety presents to the hospital with a fall. Patient is pleasant sitting up in bed. She continues to endorse pain to the left arm and left hip but states that this is well controlled on the current regimen. She notes that the left hand swelling has improved as well as the bruising. She denies any associated tingling/numbness or shooting pain to the extremities. She has no other complaints denying chest pain, palpitations, shortness of breath, nausea/vomiting, abdominal pain. Patient continues to work well with therapy. Care coordination continues to follow for placement. Review of Systems Review of Systems: All systems reviewed & are unremarkable except as noted in HPI and below Exam Narrative: AF HR 66 RR 18 SpO2 96 BP 146/84 General: female in no acute respiratory distress who is nontoxic appearing, sitting up in bed HEENT: Normocephalic. Atraumatic. Extraocular movement intact. Sclera clear and anicteric. No facial asymmetry. Chest: Lungs are clear to auscultation bilaterally. No wheezes or crackles. CV: Heart was regular rate and rhythm. S1-S2. No murmurs, gallops, or rubs. Abd: Abdomen was soft. Nontender. Nondistended. Positive bowel sounds. Ext: No clubbing, cyanosis, or edema. DP pulses bilaterally. Left hip with mild swelling, improved from yesterday with dressing clean/dry/intact. Left wrist with matt wrap in place, swelling improved. Movement intact. Good police records clerk strengths. Neuro: Patient is alert. Speech is clear. Objective Data Vital Signs Vital Signs: Vital Signs - 24 hr 11/02/24 08:10 11/02/24 13:58 11/02/24 19:45 Temperature 97.6 F Pulse Rate 68 77 Respiratory Rate 14 Blood Pressure 131/59 L Pulse Oximetry 98 96 Oxygen Delivery Room Air Room Air Fraction of Inspired Oxygen 21 11/02/24 22:00 11/03/24 06:33 Temperature 97.4 F L 98.6 F Pulse Rate 69 66 Respiratory Rate 18 18 Blood Pressure 173/67 H 146/84 H Pulse Oximetry 100 96 Oxygen Delivery Fraction of Inspired Oxygen Intake/Output Intake/Output: Intake & Output 10/31/24 11/01/24 11/02/24 11/03/24 23:59 23:59 23:59 23:59 Intake Total 7456 771 6678 400 Output Total 1999 2100 Balance -252 -1500 1530 400 Meds/Results Medications: Active Medications Generic Name Dose Route Start Last Admin Trade Name Freq PRN Reason Stop Dose Admin Acetaminophen 500 mg 10/30/24 16:52 Acetaminophen 500 Mg Tablet PO Q6H PRN Pain Rated 1-3 Hydrocodone Bitart/Acetaminophen 1 tab 10/30/24 16:52 11/02/24 22:36 Hydrocodone/Acetaminophen (*Crx) 5-325 Mg Tablet PO 1 tab Q4H PRN Administration Pain Rated 4-6 Celecoxib 200 mg 10/31/24 08:00 11/02/24 08:12 Celecoxib 200 Mg Capsule PO 200 mg DAILY@0800 MARY KAY Administration Diazepam 5 mg 10/30/24 16:52 Diazepam (*Crx) 5 Mg Tablet PO Q8H PRN Muscle Spasm Enoxaparin Sodium 40 mg 10/31/24 09:00 11/02/24 08:12 Enoxaparin 40 Mg/0.4 Ml Syringe SUB-Q 40 mg DAILY MARY KAY Administration Famotidine 20 mg 10/30/24 21:00 11/02/24 20:18 Famotidine 20 Mg Tablet PO 20 mg Q12HR MARY KAY Administration Hydroxyzine Pamoate 50 mg 10/30/24 16:52 10/31/24 08:52 Hydroxyzine Pamoate 25 Mg Capsule PO 50 mg Q4H PRN Administration Itching Ibuprofen 800 mg in 200 mls @ 400 mls/hr 10/30/24 16:52 Caldolor 800 Mg/200 Ml IVPB Q6H PRN Breakthrough Pain Rated 1-3 or NPO Levothyroxine Sodium 50 mcg 10/29/24 06:30 11/03/24 06:36 Levothyroxine Sodium 50 Mcg Tablet PO 50 mcg DAILY@0630 [facility] Administration Magnesium Oxide 200 mg 10/29/24 09:00 11/02/24 08:12 Magnesium Oxide 200 Mg Tablet PO 200 mg DAILY [facility] Administration Multivitamins Therapeutic 1 tablet 10/31/24 09:00 11/02/24 08:12 Multivitamins Therapeutic Tab (*Bkc) PO 1 tablet QAM [facility] Administration Naloxone HCl 0.1 mg 10/28/24 17:12 Naloxone Hcl 0.4 Mg/Ml Vial IV PUSH Q5MIN PRN Sedation Ondansetron HCl 4 mg 10/28/24 17:13 Ondansetron Hcl Odt 4 Mg Tablet PO Q6H PRN Nausea And Vomiting Oxycodone/Acetaminophen 1 tab 10/30/24 16:52 11/01/24 21:32 Oxycodone/Acetaminophen (*Crx) 10-325 Mg Tablet PO 1 tab Q6H PRN Administration Pain Rated 7-10 Polyethylene Glycol 17 gm 10/28/24 17:13 Polyethylene Glycol 3350 17 Gm Powd.Pack PO QAM PRN Constipation Senna/Docusate Sodium 2 tab 10/30/24 17:00 11/02/24 16:11 Senna/Docusate Sodium Tablet PO Not Given BID [facility] Radiology Results: ITS Impressions Femur X-Ray 10/28/24 12:32 IMPRESSION: 1. Mildly displaced intertrochanteric fracture of the proximal left femur. Consider a CT for further assessment. 2. Questionable nondisplaced subcapital fracture of the left femoral head. A CT is recommended for further assessment. 3. Oblique lucency in the proximal left tibia. Differential includes vascular channel or acute nondisplaced fracture. Correlate for point tenderness. Consider dedicated x-rays of the left knee for further assessment. Hip/Pelvis X-Ray 10/28/24 12:33 IMPRESSION: 1. Mildly displaced intertrochanteric fracture of the proximal left femur. Consider a CT for further assessment. 2. Questionable nondisplaced subcapital fracture of the left femoral head. A CT is recommended for further assessment. Chest X-Ray 10/28/24 12:36 IMPRESSION: No acute process. Head CT 10/28/24 13:14 IMPRESSION: 1. No evidence for acute intracranial hemorrhage or calvarial fracture. 2. Chronic findings, as above. Pelvis CT 10/28/24 13:18 IMPRESSION: Minimally displaced intertrochanteric fracture of the left femur with mild anterior angulation. Knee X-Ray 10/28/24 13:33 IMPRESSION: 1. No fracture identified. Wrist X-Ray 10/28/24 15:29 IMPRESSION: 1. Fractures of the left radius and left ulna as detailed above. Intraoperative X-Ray 10/30/24 17:10 IMPRESSION: 1. Fluoroscopy utilized during internal fixation of an extra articular fracture of the distal left radius which is now in near-anatomic alignment. 2. Unfixed ulnar styloid avulsion fracture which remains in essentially anatomic alignment. Labs Labs: Laboratory Results - last 24 hr 11/02/24 07:10 Sodium 132 L Potassium 3.8 Chloride 102 Carbon Dioxide 23 Anion Gap 7 BUN 10 Creatinine 0.55 L Estim Creat Clear Calc 62 Estimated GFR > 60 Glucose 106 Calcium 8.6 Total Bilirubin 1.1 AST 30 ALT 19 Alkaline Phosphatase 75 Total Protein 6.8 Albumin 3.5 Quality VTE Prophylaxis VTE prophylaxis: mechanical ordered
[2024-11-03] MEDS: ENOXAPARIN 40 MG/0.4 ML SYRINGE SUB-Q (08:49)
[2024-11-03] MEDS: MAGNESIUM OXIDE 200 MG TABLET PO (08:50)
[2024-11-03] MEDS: SENNA/DOCUSATE SODIUM TABLET 2 TAB PO ×2 (08:50→16:59)
[2024-11-03] MEDS: MULTIVITAMINS THERAPEUTIC TAB (*BKC) 1 TABLET PO (08:50)
[2024-11-03] MEDS: FAMOTIDINE 20 MG TABLET PO ×2 (08:51→20:39)
[2024-11-03] MEDS: CELECOXIB 200 MG CAPSULE PO (08:51)
[2024-11-03] MEDS: HYDROcodone/acetaminophen (*CRX) 5-325 MG TABLET 1 TAB PO ×2 (08:54→22:45)
[2024-11-03 14:00] VITALS: BP 118/58; PULSE 62; RESP 12; TEMP 36.5; O2SAT 97
[2024-11-03 20:00] VITALS: PULSE 62; RESP 12; O2SAT 97
[2024-11-03 21:10] VITALS: BP 139/68; PULSE 66; RESP 16; TEMP 36.8; O2SAT 97
[2024-11-04 05:43] VITALS: BP 140/61; PULSE 62; RESP 16; TEMP 36.7; O2SAT 97
[2024-11-04] MEDS: LEVOTHYROXINE SODIUM 50 MCG TABLET PO (06:00)
[2024-11-04] MEDS: FAMOTIDINE 20 MG TABLET PO ×2 (08:33→20:08)
[2024-11-04] MEDS: HYDROcodone/acetaminophen (*CRX) 5-325 MG TABLET 1 TAB PO (08:33)
[2024-11-04] MEDS: ENOXAPARIN 40 MG/0.4 ML SYRINGE SUB-Q (08:33)
[2024-11-04] MEDS: MULTIVITAMINS THERAPEUTIC TAB (*BKC) 1 TABLET PO (08:33)
[2024-11-04] MEDS: MAGNESIUM OXIDE 200 MG TABLET PO (08:33)
[2024-11-04] MEDS: CELECOXIB 200 MG CAPSULE PO (08:33)
--- NOTE | 2024-11-04 09:46 | PCNWS ---
Weekly nutritional screen. Patient is tolerating current diet with adequate intake. No weight loss reported. No nutritional needs at this time.
--- NOTE | 2024-11-04 13:04 | P.PNIM_ITS ---
Progress Note: A&P Assessment and Plan (1) Fracture, intertrochanteric, left femur: Qualifiers: Encounter type: initial encounter Fracture type: closed Fracture alignment: displaced Qualified Code(s): S72.142A - Displaced intertrochanteric fracture of left femur, initial encounter for closed fracture Code(s): S72.142A - Displaced intertrochanteric fracture of left femur, initial encounter for closed fracture Status: Acute Assessment and Plan: * Femur XR: 1. Mildly displaced intertrochanteric fracture of the proximal left femur. Consider a CT for further assessment. 2. Questionable nondisplaced subcapital fracture of the left femoral head. A CT is recommended for further assessment. 3. Oblique lucency in the proximal left tibia. Differential includes vascular channel or acute nondisplaced fracture. Correlate for point tenderness. Consider dedicated x-rays of the left knee for further assessment. * Hip/pelvic XR: 1. Mildly displaced intertrochanteric fracture of the proximal left femur. Consider a CT for further assessment. 2. Questionable nondisplaced subcapital fracture of the left femoral head. A CT is recommended for further assessment. * Pelvic CT: Minimally displaced intertrochanteric fracture of the left femur with mild anterior angulation. - analgesics p.r.n. - will need PT/OT eval postop weight bearing as tolerated per ortho recommendations - care coordination consulted for discharge planning/rehab placement as the patient will likely be a poor candidate for home therapy given fracture to the left wrist Plan for [facility] vs SNF, authorization being sent - DVT ppx: Lovenoex - orthopedics consulted. s/p insertion gamma magi left hip with Dr. Patel on 10/30 will need 2 week follow up in the office (2) Fracture, radius, distal: Qualifiers: Encounter type: initial encounter Fracture type: closed Fracture morphology: unspecified fracture morphology Laterality: left Qualified Code(s): S52.502A - Unspecified fracture of the lower end of left radius, initial encounter for closed fracture Code(s): S52.509A - Unspecified fracture of the lower end of unspecified radius, initial encounter for closed fracture Status: Acute Assessment and Plan: Wrist XR (L): Acute displaced fracture of the distal radius with posterior displacement of the distal fracture segment. Minimally displaced fracture of the ulnar styloid process. Surrounding soft tissue swelling. Joint space narrowing, subchondral sclerosis, subchondral cyst formation and osteophyte formation, compatible with moderate osteoarthritis. - analgesics p.r.n. - brace placed in the ED - will need PT/OT eval postop recommend [facility] non weight bearing left upper extremity per ortho recommendations - care coordination consulted for discharge planning/rehab placement as the patient will likely be a poor candidate for home therapy given fracture to the left wrist Plan for [facility] vs SNF, authorization being sent - orthopedist consulted. s/p ORIF left distal radius fracture on 10/[address] Patel 2 week follow up in office for suture removal (3) Fracture of styloid process of left ulna: Qualifiers: Encounter type: initial encounter Fracture type: closed Fracture alignment: displaced Qualified Code(s): S52.612A - Displaced fracture of left ulna styloid process, initial encounter for closed fracture Code(s): S52.612A - Displaced fracture of left ulna styloid process, initial encounter for closed fracture Status: Acute Assessment and Plan: - see above (4) Hypothyroidism: Qualifiers: Hypothyroidism type: unspecified Qualified Code(s): E03.9 - Hypothyroidism, unspecified Code(s): E03.9 - Hypothyroidism, unspecified Status: Chronic Assessment and Plan: - continue home medication: Synthroid 50 mcg daily Plan Code status: Full code per patient DVT prophylaxis: Lovenox Stress ulcer prophylaxis: Pepcid BID PT/OT notes: SNF/[facility] placement pending Disposition: Patient continues admission pending placement. Time Spent With Patient Time with patient: 15 - 25 minutes Subjective Date/time seen: 11/04/24 13:04 Interval history: 74 y/o F with PMH of hypothyroidism and anxiety presents to the hospital with a fall. 11/04/2024: Assumed care Patient up in chair reporting pain is controlled but cast is heavy no other complaints or concerns at this time. Progressing with PT/OT as expected. Labs reviewed waiting on rehab placement Review of Systems Review of Systems: All systems reviewed & are unremarkable except as noted in HPI and below Exam Narrative: AF HR 66 RR 18 SpO2 96 BP 146/84 General: female in no acute respiratory distress who is nontoxic appearing, sitting up in bed HEENT: Normocephalic. Atraumatic. Extraocular movement intact. Sclera clear and anicteric. No facial asymmetry. Chest: Lungs are clear to auscultation bilaterally. No wheezes or crackles. CV: Heart was regular rate and rhythm. S1-S2. No murmurs, gallops, or rubs. Abd: Abdomen was soft. Nontender. Nondistended. Positive bowel sounds. Ext: No clubbing, cyanosis, or edema. DP pulses bilaterally. Left hip with mild swelling, improved from yesterday with dressing clean/dry/intact. Left wrist wi th matt wrap in place, swelling improved. Movement intact. Good mri ct tech strengths. Neuro: Patient is alert. Speech is clear. Const: General: comfortable and no acute distress Other: , female, elderly, nontoxic appearance HENMT: Face/Nose/Sinus: Normal nares present Mouth: Yes moist mucous membranes Eyes: General: appearance normal, both eyes and all related structures Sclera: sclerae normal Pupils: Equal, round and reactive pupils present EOM: EOMs intact bilaterally Resp: Effort & Inspection: normal respiratory effort Auscultation: clear to auscultation bilaterally Other: Nasal cannula place, tolerating well Cardio: Rate: regular rate Rhythm: regular rhythm Other: S1-S2 present without murmur, rub, ectopy GI: Other: Abdomen soft, nondistended, nontender. Normoactive bowel sounds in all quadrants. Skin: General skin exam: normal color and no rashes or lesions noted Wounds: no wounds Neuro: Cranial nerves: Yes Equal, round and reactive pupils present Speech: normal speech Sensory Exam: normal sensation Other: A&O x4. Extrem: Other: Cap refill brisk in the left upper extremity. Left lower extremity remains warm and pulses intact. No edema noted. Psych: Mental Status: mental status grossly normal Affect: normal affect Other: Good insight and judgment, pleasant Objective Data Vital Signs Vital Signs: Vital Signs - 24 hr 11/03/24 14:00 11/03/24 20:00 11/03/24 21:10 Temperature 97.7 F 98.3 F Pulse Rate 62 62 66 Respiratory Rate 12 12 16 Blood Pressure 118/58 L 139/68 Pulse Oximetry 97 97 97 Oxygen Delivery Room Air Fraction of Inspired Oxygen 21 11/04/24 05:43 11/04/24 08:37 Temperature 98.1 F Pulse Rate 62 Respiratory Rate 16 Blood Pressure 140/61 Pulse Oximetry 97 Oxygen Delivery Room Air Fraction of Inspired Oxygen Intake/Output Intake/Output: Intake & Output 11/01/24 11/02/24 11/03/24 11/04/24 23:59 23:59 23:59 23:59 Intake Total 600 1530 1300 780 Output Total 2100 Balance -1500 1530 1300 780 Meds/Results Medications: Active Medications Generic Name Dose Route Start Last Admin Trade Name Freq PRN Reason Stop Dose Admin Acetaminophen 500 mg 10/30/24 16:52 Acetaminophen 500 Mg Tablet PO Q6H PRN Pain Rated 1-3 Hydrocodone Bitart/Acetaminophen 1 tab 10/30/24 16:52 11/04/24 08:33 Hydrocodone/Acetaminophen (*Crx) 5-325 Mg Tablet PO 1 tab Q4H PRN Administration Pain Rated 4-6 Celecoxib 200 mg 10/31/24 08:00 11/04/24 08:33 Celecoxib 200 Mg Capsule PO 200 mg DAILY@0800 [facility] Administration Diazepam 5 mg 10/30/24 16:52 Diazepam (*Crx) 5 Mg Tablet PO Q8H PRN Muscle Spasm Enoxaparin Sodium 40 mg 10/31/24 09:00 11/04/24 08:33 Enoxaparin 40 Mg/0.4 Ml Syringe SUB-Q 40 mg DAILY [facility] Administration Famotidine 20 mg 10/30/24 21:00 11/04/24 08:33 Famotidine 20 Mg Tablet PO 20 mg Q12HR [facility] Administration Hydroxyzine Pamoate 50 mg 10/30/24 16:52 10/31/24 08:52 Hydroxyzine Pamoate 25 Mg Capsule PO 50 mg Q4H PRN Administration Itching Ibuprofen 800 mg in 200 mls @ 400 mls/hr 10/30/24 16:52 Caldolor 800 Mg/200 Ml IVPB Q6H PRN Breakthrough Pain Rated 1-3 or NPO Levothyroxine Sodium 50 mcg 10/29/24 06:30 11/04/24 06:00 Levothyroxine Sodium 50 Mcg Tablet PO 50 mcg DAILY@0630 [facility] Administration Magnesium Oxide 200 mg 10/29/24 09:00 11/04/24 08:33 Magnesium Oxide 200 Mg Tablet PO 200 mg DAILY [facility] Administration Multivitamins Therapeutic 1 tablet 10/31/24 09:00 11/04/24 08:33 Multivitamins Therapeutic Tab (*Bkc) PO 1 tablet QAM [facility] Administration Naloxone HCl 0.1 mg 10/28/24 17:12 Naloxone Hcl 0.4 Mg/Ml Vial IV PUSH Q5MIN PRN Sedation Ondansetron HCl 4 mg 10/28/24 17:13 Ondansetron Hcl Odt 4 Mg Tablet PO Q6H PRN Nausea And Vomiting Oxycodone/Acetaminophen 1 tab 10/30/24 16:52 11/01/24 21:32 Oxycodone/Acetaminophen (*Crx) 10-325 Mg Tablet PO 1 tab Q6H PRN Administration Pain Rated 7-10 Polyethylene Glycol 17 gm 10/28/24 17:13 Polyethylene Glycol 3350 17 Gm Powd.Pack PO QAM PRN Constipation Senna/Docusate Sodium 2 tab 10/30/24 17:00 11/04/24 08:33 Senna/Docusate Sodium Tablet PO Not Given BID [facility] Radiology Results: ITS Impressions Femur X-Ray 10/28/24 12:32 IMPRESSION: 1. Mildly displaced intertrochanteric fracture of the proximal left femur. Consider a CT for further assessment. 2. Questionable nondisplaced subcapital fracture of the left femoral head. A CT is recommended for further assessment. 3. Oblique lucency in the proximal left tibia. Differential includes vascular channel or acute nondisplaced fracture. Correlate for point tenderness. Consider dedicated x-rays of the left knee for further assessment. Hip/Pelvis X-Ray 10/28/24 12:33 IMPRESSION: 1. Mildly displaced intertrochanteric fracture of the proximal left femur. Consider a CT for further assessment. 2. Questionable nondisplaced subcapital fracture of the left femoral head. A CT is recommended for further assessment. Chest X-Ray 10/28/24 12:36 IMPRESSION: No acute process. Head CT 10/28/24 13:14 IMPRESSION: 1. No evidence for acute intracranial hemorrhage or calvarial fracture. 2. Chronic findings, as above. Pelvis CT 10/28/24 13:18 IMPRESSION: Minimally displaced intertrochanteric fracture of the left femur with mild anterior angulation. Knee X-Ray 10/28/24 13:33 IMPRESSION: 1. No fracture identified. Wrist X-Ray 10/28/24 15:29 IMPRESSION: 1. Fractures of the left radius and left ulna as detailed above. Intraoperative X-Ray 10/30/24 17:10 IMPRESSION: 1. Fluoroscopy utilized during internal fixation of an extra articular fracture of the distal left radius which is now in near-anatomic alignment. 2. Unfixed ulnar styloid avulsion fracture which remains in essentially anatomic alignment. Quality VTE Prophylaxis VTE prophylaxis: mechanical ordered and pharmacologic ordered -Patient's previous records reviewed on admission -ER notes reviewed in detail on admission -discussed all findings and current treatment plan with patient/Family/POA -Consultations reviewed for recommendations -Patient's disposition for safe discharge discussed with pillowcase cleaner Dictation performed by [employer] direct speech recognition software, therefore development associate variants and typographical errors may occur. Hospitalist [facility] Advance Care Plan I have confirmed that the patient's Advanced Care Plan is present, code status is documented, or surrogate decision maker is listed in patient medical record.: Yes Medication Reconciliation I have utilized all available resources to obtain, update and review the patients current medications (includes all prescriptions, OTC, herbals, cannabis, and nutritional supplements).: Yes The patient is not eligible for med reconciliation; the patient is in a emergent medical situation where delaying treatment would jeopardize the patients health.: No
[2024-11-04 13:45] VITALS: BP 109/51; PULSE 63; RESP 16; TEMP 36.7; O2SAT 98
[2024-11-04] MEDS: CALCIUM CARBONATE (TUMS) 500 MG (200 MG ELEMENTAL) PO (15:23)
[2024-11-04 21:53] VITALS: O2SAT 98
[2024-11-04 22:00] VITALS: BP 126/48; PULSE 67; RESP 16; TEMP 36.1; O2SAT 98
[2024-11-04] MEDS: oxyCODONE/ACETAMINOPHEN (*CRX) 10-325 MG TABLET 1 TAB PO (22:09)
[2024-11-05 04:42] VITALS: BP 126/74; PULSE 64; RESP 16; TEMP 36.6; O2SAT 96
[2024-11-05] MEDS: LEVOTHYROXINE SODIUM 50 MCG TABLET PO (05:37)
[2024-11-05] MEDS: CELECOXIB 200 MG CAPSULE PO (08:21)
[2024-11-05] MEDS: HYDROcodone/acetaminophen (*CRX) 5-325 MG TABLET 1 TAB PO (08:22)
[2024-11-05] MEDS: FAMOTIDINE 20 MG TABLET PO ×2 (08:22→19:59)
[2024-11-05] MEDS: ENOXAPARIN 40 MG/0.4 ML SYRINGE SUB-Q (08:22)
[2024-11-05] MEDS: MAGNESIUM OXIDE 200 MG TABLET PO (08:22)
[2024-11-05] MEDS: MULTIVITAMINS THERAPEUTIC TAB (*BKC) 1 TABLET PO (08:22)
--- NOTE | 2024-11-05 10:37 | P.PNIM_ITS ---
Progress Note: A&P Assessment and Plan (1) Fracture, intertrochanteric, left femur: Qualifiers: Encounter type: initial encounter Fracture alignment: displaced Fracture type: closed Qualified Code(s): S72.142A - Displaced intertrochanteric fracture of left femur, initial encounter for closed fracture Code(s): S72.142A - Displaced intertrochanteric fracture of left femur, initial encounter for closed fracture Status: Acute Assessment and Plan: * orthopedics consulted. * analgesics p.r.n. * PT/OT SNF placement * weight bearing as tolerated per ortho recommendations * DVT ppx: Lovenoex * s/p insertion gamma magi left hip with Dr. Patel on 10/30 * will need 2 week follow up in the office (2) Fracture, radius, distal: Qualifiers: Encounter type: initial encounter Fracture morphology: unspecified fracture morphology Fracture type: closed Laterality: left Qualified Code(s): S52.502A - Unspecified fracture of the lower end of left radius, initial encounter for closed fracture Code(s): S52.509A - Unspecified fracture of the lower end of unspecified radius, initial encounter for closed fracture Status: Acute Assessment and Plan: Wrist XR (L): Acute displaced fracture of the distal radius with posterior displacement of the distal fracture segment. Minimally displaced fracture of the ulnar styloid process. Surrounding soft tissue swelling.Joint space narrowing, subchondral sclerosis, subchondral cyst formation and osteophyte formation, compatible with moderate osteoarthritis. * Orthopedics consulted * analgesics p.r.n. * brace placed in the ED * PT/OT [facility] * non weight bearing left upper extremity per ortho recommendations * s/p ORIF left distal radius fracture on 10/[address] Patel * 2 week follow up in office for suture removal (3) Fracture of styloid process of left ulna: Qualifiers: Encounter type: initial encounter Fracture alignment: displaced Fracture type: closed Qualified Code(s): S52.612A - Displaced fracture of left ulna styloid process, initial encounter for closed fracture Code(s): S52.612A - Displaced fracture of left ulna styloid process, initial encounter for closed fracture Status: Acute Assessment and Plan: - see above (4) Hypothyroidism: Qualifiers: Hypothyroidism type: unspecified Qualified Code(s): E03.9 - Hypothyroidism, unspecified Code(s): E03.9 - Hypothyroidism, unspecified Status: Chronic Assessment and Plan: - continue home medication: Synthroid 50 mcg daily Plan Code status: Full code per patient DVT prophylaxis: Lovenox Stress ulcer prophylaxis: Pepcid BID PT/OT notes: SNF/[facility] placement pending Disposition: Patient continues admission pending placement. Time Spent With Patient Time with patient: 15 - 25 minutes Subjective Date/time seen: 11/05/24 10:37 Interval history: 74 y/o F with PMH of hypothyroidism and anxiety presents to the hospital with a fall. Post-op ORIF LT wrist and Left hip fracture 11/05/2024: Patient sitting on the side of the bed wanting to go home working well and progressing with PT/OT. no complaints and reports pain is well controlled Review of Systems Review of Systems: All systems reviewed & are unremarkable except as noted in HPI and below Exam Const: General: comfortable and no acute distress Other: , female, elderly, nontoxic appearance HENMT: Face/Nose/Sinus: Normal nares present Mouth: Yes moist mucous membranes Eyes: General: appearance normal, both eyes and all related structures Sclera: sclerae normal Pupils: Equal, round and reactive pupils present EOM: EOMs intact bilaterally Resp: Effort & Inspection: normal respiratory effort Auscultation: clear to auscultation bilaterally Other: Nasal cannula place, tolerating well Cardio: Rate: regular rate Rhythm: regular rhythm Other: S1-S2 present without murmur, rub, ectopy GI: Other: Abdomen soft, nondistended, nontender. Normoactive bowel sounds in all quadrants. Skin: General skin exam: normal color and no rashes or lesions noted Wounds: no wounds Neuro: Cranial nerves: Yes Equal, round and reactive pupils present Speech: normal speech Sensory Exam: normal sensation Other: A&O x4. Extrem: Other: Cap refill brisk in the left upper extremity. Left lower extremity remains warm and pulses intact. No edema noted. Psych: Mental Status: mental status grossly normal Affect: normal affect Other: Good insight and judgment, pleasant Objective Data Vital Signs Vital Signs: Vital Signs - 24 hr 11/04/24 13:45 11/04/24 21:53 11/04/24 22:00 Temperature 98.1 F 97 F L Pulse Rate 63 67 Respiratory Rate 16 16 Blood Pressure 109/51 L 126/48 L Pulse Oximetry 98 98 98 Oxygen Delivery Room Air 11/05/24 04:42 11/05/24 08:20 Temperature 97.8 F Pulse Rate 64 Respiratory Rate 16 Blood Pressure 126/74 Pulse Oximetry 96 Oxygen Delivery Room Air Intake/Output Intake/Output: Intake & Output 11/02/24 11/03/24 11/04/24 11/05/24 23:59 23:59 23:59 23:59 Intake Total 1530 1300 1740 480 Balance 1530 1300 1740 480 Meds/Results Medications: Active Medications Generic Name Dose Route Start Last Admin Trade Name Freq PRN Reason Stop Dose Admin Acetaminophen 500 mg 10/30/24 16:52 Acetaminophen 500 Mg Tablet PO Q6H PRN Pain Rated 1-3 Hydrocodone Bitart/Acetaminophen 1 tab 10/30/24 16:52 11/05/24 08:22 Hydrocodone/Acetaminophen (*Crx) 5-325 Mg Tablet PO 1 tab Q4H PRN Administration Pain Rated 4-6 Calcium Carbonate 200 mg 11/04/24 15:11 11/04/24 15:23 Calcium Carbonate (Tums) 500 Mg (200 Mg Elemental) PO 200 mg Q6H PRN Administration Indigestion Celecoxib 200 mg 10/31/24 08:00 11/05/24 08:21 Celecoxib 200 Mg Capsule PO 200 mg DAILY@0800 [facility] Administration Diazepam 5 mg 10/30/24 16:52 Diazepam (*Crx) 5 Mg Tablet PO Q8H PRN Muscle Spasm Enoxaparin Sodium 40 mg 10/31/24 09:00 11/05/24 08:22 Enoxaparin 40 Mg/0.4 Ml Syringe SUB-Q 40 mg DAILY [facility] Administration Famotidine 20 mg 10/30/24 21:00 11/05/24 08:22 Famotidine 20 Mg Tablet PO 20 mg Q12HR [facility] Administration Hydroxyzine Pamoate 50 mg 10/30/24 16:52 10/31/24 08:52 Hydroxyzine Pamoate 25 Mg Capsule PO 50 mg Q4H PRN Administration Itching Ibuprofen 800 mg in 200 mls @ 400 mls/hr 10/30/24 16:52 Caldolor 800 Mg/200 Ml IVPB Q6H PRN Breakthrough Pain Rated 1-3 or NPO Levothyroxine Sodium 50 mcg 10/29/24 06:30 11/05/24 05:37 Levothyroxine Sodium 50 Mcg Tablet PO 50 mcg DAILY@0630 [facility] Administration Magnesium Oxide 200 mg 10/29/24 09:00 11/05/24 08:22 Magnesium Oxide 200 Mg Tablet PO 200 mg DAILY [facility] Administration Multivitamins Therapeutic 1 tablet 10/31/24 09:00 11/05/24 08:22 Multivitamins Therapeutic Tab (*Bkc) PO 1 tablet QAM [facility] Administration Naloxone HCl 0.1 mg 10/28/24 17:12 Naloxone Hcl 0.4 Mg/Ml Vial IV PUSH Q5MIN PRN Sedation Ondansetron HCl 4 mg 10/28/24 17:13 Ondansetron Hcl Odt 4 Mg Tablet PO Q6H PRN Nausea And Vomiting Oxycodone/Acetaminophen 1 tab 10/30/24 16:52 11/04/24 22:09 Oxycodone/Acetaminophen (*Crx) 10-325 Mg Tablet PO 1 tab Q6H PRN Administration Pain Rated 7-10 Polyethylene Glycol 17 gm 10/28/24 17:13 Polyethylene Glycol 3350 17 Gm Powd.Pack PO QAM PRN Constipation Senna/Docusate Sodium 2 tab 10/30/24 17:00 11/05/24 08:22 Senna/Docusate Sodium Tablet PO Not Given BID [facility] Radiology Results: ITS Impressions Femur X-Ray 10/28/24 12:32 IMPRESSION: 1. Mildly displaced intertrochanteric fracture of the proximal left femur. Consider a CT for further assessment. 2. Questionable nondisplaced subcapital fracture of the left femoral head. A CT is recommended for further assessment. 3. Oblique lucency in the proximal left tibia. Differential includes vascular channel or acute nondisplaced fracture. Correlate for point tenderness. Consider dedicated x-rays of the left knee for further assessment. Hip/Pelvis X-Ray 10/28/24 12:33 IMPRESSION: 1. Mildly displaced intertrochanteric fracture of the proximal left femur. Consider a CT for further assessment. 2. Questionable nondisplaced subcapital fracture of the left femoral head. A CT is recommended for further assessment. Chest X-Ray 10/28/24 12:36 IMPRESSION: No acute process. Head CT 10/28/24 13:14 IMPRESSION: 1. No evidence for acute intracranial hemorrhage or calvarial fracture. 2. Chronic findings, as above. Pelvis CT 10/28/24 13:18 IMPRESSION: Minimally displaced intertrochanteric fracture of the left femur with mild anterior angulation. Knee X-Ray 10/28/24 13:33 IMPRESSION: 1. No fracture identified. Wrist X-Ray 10/28/24 15:29 IMPRESSION: 1. Fractures of the left radius and left ulna as detailed above. Intraoperative X-Ray 10/30/24 17:10 IMPRESSION: 1. Fluoroscopy utilized during internal fixation of an extra articular fracture of the distal left radius which is now in near-anatomic alignment. 2. Unfixed ulnar styloid avulsion fracture which remains in essentially anatomic alignment. Quality VTE Prophylaxis VTE prophylaxis: mechanical ordered and pharmacologic ordered -Patient's previous records reviewed on admission -ER notes reviewed in detail on admission -discussed all findings and current treatment plan with patient/Family/POA -Consultations reviewed for recommendations -Patient's disposition for safe discharge discussed with rn case management Dictation performed by [employer] direct speech recognition software, therefore nurse orthopaedic variants and typographical errors may occur. Hospitalist [facility] Advance Care Plan I have confirmed that the patient's Advanced Care Plan is present, code status is documented, or surrogate decision maker is listed in patient medical record.: Yes Medication Reconciliation I have utilized all available resources to obtain, update and review the patients current medications (includes all prescriptions, OTC, herbals, cannabis, and nutritional supplements).: Yes The patient is not eligible for med reconciliation; the patient is in a emergent medical situation where delaying treatment would jeopardize the patients health.: No
--- NOTE | 2024-11-05 12:21 | P.PNOP_ITS ---
Progress Note: A&P Assessment and Plan (1) Closed intertrochanteric fracture of left femur: Qualifiers: Encounter type: initial encounter Fracture alignment: nondisplaced Qualified Code(s): S72.145A - Nondisplaced intertrochanteric fracture of left femur, initial encounter for closed fracture Code(s): S72.142A - Displaced intertrochanteric fracture of left femur, initial encounter for closed fracture Status: Acute Assessment and Plan: POD#6: ORIF Left Wrist, INSERTION GAMMA JAKUB LEFT HIP Continue PT/OT. WBAT b/l LE. Walker. HIGH FALL RISK. Continue pain control. Ice hip/wrist. Protect skin. DVT prophylaxis with Lovenox. SCDs. Incentive Spirometry Use reviewed. Monitor Dressing. Keep Mepilex silver in place. Change on POD #7. Bowel Regimen. Dispo: [facility] pending progress with PT/OT vs. Home with Home Health 2 week follow up previously scheduled. (2) Fracture, radius, distal: Qualifiers: Encounter type: initial encounter Fracture type: closed Fracture morphology: unspecified fracture morphology Laterality: left Qualified Code(s): S52.502A - Unspecified fracture of the lower end of left radius, initial encounter for closed fracture Code(s): S52.509A - Unspecified fracture of the lower end of unspecified radius, initial encounter for closed fracture Status: Acute Assessment and Plan: MADONNA TAYLOR. Splint intact. Keep splint c/d/i. 2 week follow up for suture removal. Subjective Subjective Date/Time Seen: 11/05/24 12:21 Post Op day: 6 Interval history: POD#6: ORIF Left Wrist, INSERTION GAMMA JAKUB LEFT HIP Patient doing well. Pain well controlled. No new concerns. Awaiting arrangements for placement to [facility]. Also would like to consider being discharged home with home health if she is going to continue to wait. Review of Systems Review of Systems: All systems reviewed & are unremarkable except as noted in HPI and below Exam Const: General: comfortable and no acute distress Resp: Effort & Inspection: normal respiratory effort Cardio: Rate: regular rate Rhythm: regular rhythm Neuro: Sensory Exam: normal sensation Extrem: Left upper extremity: wrist (splint c/d/i. ) normal to inspection, tenderness of the distal radius and radial pulse present 2+ and hand (sensation intact. ) normal to inspection and normal capillary refill Left lower extremity: hip/thigh Details: tenderness Location: of the hip Location: laterally and abnormal ROM Details: pain with active ROM Details: with internal rotation and with external rotation; no ecchymosis, knee Details: normal to inspection, lower leg (Negative Alondra's Sign ), ankle Details: normal to inspection; no tenderness and no swelling and foot Details: normal capillary refill, toes with normal ROM and vascular exam Details: dorsalis pedis pulse present; no tenderness Objective Data Vital Signs Vital Signs: Vital Signs - 24 hr 11/04/24 13:45 11/04/24 21:53 11/04/24 22:00 Temperature 36.7 C 36.1 C L Pulse Rate 63 67 Respiratory Rate 16 16 Blood Pressure 109/51 L 126/48 L Pulse Oximetry 98 98 98 Oxygen Delivery Room Air 11/05/24 04:42 11/05/24 08:20 Temperature 36.6 C Pulse Rate 64 Respiratory Rate 16 Blood Pressure 126/74 Pulse Oximetry 96 Oxygen Delivery Room Air Intake/Output Intake/Output: Intake & Output 11/02/24 11/03/24 11/04/24 11/05/24 23:59 23:59 23:59 23:59 Intake Total 1530 1300 1740 480 Balance 1530 1300 1740 480 Meds/Results Medications: Active Medications Generic Name Dose Route Start Last Admin Trade Name Freq PRN Reason Stop Dose Admin Acetaminophen 500 mg 10/30/24 16:52 Acetaminophen 500 Mg Tablet PO Q6H PRN Pain Rated 1-3 Hydrocodone Bitart/Acetaminophen 1 tab 10/30/24 16:52 11/05/24 08:22 Hydrocodone/Acetaminophen (*Crx) 5-325 Mg Tablet PO 1 tab Q4H PRN Administration Pain Rated 4-6 Calcium Carbonate 200 mg 11/04/24 15:11 11/04/24 15:23 Calcium Carbonate (Tums) 500 Mg (200 Mg Elemental) PO 200 mg Q6H PRN Administration Indigestion Celecoxib 200 mg 10/31/24 08:00 11/05/24 08:21 Celecoxib 200 Mg Capsule PO 200 mg DAILY@0800 MARY KAY Administration Diazepam 5 mg 10/30/24 16:52 Diazepam (*Crx) 5 Mg Tablet PO Q8H PRN Muscle Spasm Enoxaparin Sodium 40 mg 10/31/24 09:00 11/05/24 08:22 Enoxaparin 40 Mg/0.4 Ml Syringe SUB-Q 40 mg DAILY MARY KAY Administration Famotidine 20 mg 10/30/24 21:00 11/05/24 08:22 Famotidine 20 Mg Tablet PO 20 mg Q12HR COUNTS INCLUDE 234 BEDS AT THE [facility] Administration Hydroxyzine Pamoate 50 mg 10/30/24 16:52 10/31/24 08:52 Hydroxyzine Pamoate 25 Mg Capsule PO 50 mg Q4H PRN Administration Itching Ibuprofen 800 mg in 200 mls @ 400 mls/hr 10/30/24 16:52 Caldolor 800 Mg/200 Ml IVPB Q6H PRN Breakthrough Pain Rated 1-3 or NPO Levothyroxine Sodium 50 mcg 10/29/24 06:30 11/05/24 05:37 Levothyroxine Sodium 50 Mcg Tablet PO 50 mcg DAILY@0630 COUNTS INCLUDE 234 BEDS AT THE [facility] Administration Magnesium Oxide 200 mg 10/29/24 09:00 11/05/24 08:22 Magnesium Oxide 200 Mg Tablet PO 200 mg DAILY COUNTS INCLUDE 234 BEDS AT THE [facility] Administration Multivitamins Therapeutic 1 tablet 10/31/24 09:00 11/05/24 08:22 Multivitamins Therapeutic Tab (*Bkc) PO 1 tablet QAM COUNTS INCLUDE 234 BEDS AT THE [facility] Administration Naloxone HCl 0.1 mg 10/28/24 17:12 Naloxone Hcl 0.4 Mg/Ml Vial IV PUSH Q5MIN PRN Sedation Ondansetron HCl 4 mg 10/28/24 17:13 Ondansetron Hcl Odt 4 Mg Tablet PO Q6H PRN Nausea And Vomiting Oxycodone/Acetaminophen 1 tab 10/30/24 16:52 11/04/24 22:09 Oxycodone/Acetaminophen (*Crx) 10-325 Mg Tablet PO 1 tab Q6H PRN Administration Pain Rated 7-10 Polyethylene Glycol 17 gm 10/28/24 17:13 Polyethylene Glycol 3350 17 Gm Powd.Pack PO QAM PRN Constipation Senna/Docusate Sodium 2 tab 10/30/24 17:00 11/05/24 08:22 Senna/Docusate Sodium Tablet PO Not Given BID COUNTS INCLUDE 234 BEDS AT THE [facility] Radiology Results: ITS Impressions Femur X-Ray 10/28/24 12:32 IMPRESSION: 1. Mildly displaced intertrochanteric fracture of the proximal left femur. Consider a CT for further assessment. 2. Questionable nondisplaced subcapital fracture of the left femoral head. A CT is recommended for further assessment. 3. Oblique lucency in the proximal left tibia. Differential includes vascular channel or acute nondisplaced fracture. Correlate for point tenderness. Consider dedicated x-rays of the left knee for further assessment. Hip/Pelvis X-Ray 10/28/24 12:33 IMPRESSION: 1. Mildly displaced intertrochanteric fracture of the proximal left femur. Consider a CT for further assessment. 2. Questionable nondisplaced subcapital fracture of the left femoral head. A CT is recommended for further assessment. Chest X-Ray 10/28/24 12:36 IMPRESSION: No acute process. Head CT 10/28/24 13:14 IMPRESSION: 1. No evidence for acute intracranial hemorrhage or calvarial fracture. 2. Chronic findings, as above. Pelvis CT 10/28/24 13:18 IMPRESSION: Minimally displaced intertrochanteric fracture of the left femur with mild anterior angulation. Knee X-Ray 10/28/24 13:33 IMPRESSION: 1. No fracture identified. Wrist X-Ray 10/28/24 15:29 IMPRESSION: 1. Fractures of the left radius and left ulna as detailed above. Intraoperative X-Ray 10/30/24 17:10 IMPRESSION: 1. Fluoroscopy utilized during internal fixation of an extra articular fracture of the distal left radius which is now in near-anatomic alignment. 2. Unfixed ulnar styloid avulsion fracture which remains in essentially anatomic alignment.
[2024-11-05 12:45] LABS: Hematocrit 33.8 % (37.0-47.0); Hemoglobin 11.3 g/dL (12.0-15.0); Mean Corpuscular HGB Conc 33.4 g/dl (32-36); Mean Corpuscular Hemoglobin 31.0 pg (26-34); Mean Corpuscular Volume 92.9 fl (80-100); Platelet Count Result 210 k/mm3 (150-375); Red Blood Count 3.64 M/mm3 (4.2-5.4); White Blood Count 7.4 K/mm3 (4.5-10.0)
[2024-11-05 12:56] LABS: Alanine Aminotransferase 35 U/L (6-35); Albumin Level 3.9 g/dL (3.5-5.1); Alkaline Phosphatase 79 U/L (38-126); Anion Gap 6 mmol/L (4-12); Aspartate Amino Transferase 43 U/L (14-36); Bilirubin,Total 0.9 mg/dL (0.2-1.3); Blood Urea Nitrogen 12 mg/dL (7-17); Calcium 9.2 mg/dL (8.4-10.2); Carbon Dioxide 26 mmol/L (22-30); Chloride 102 mmol/L (98-107); Estimated CRCL calculation 58 ml/min; Estimated Glomerular Filt Rate > 60; Glucose 112 mg/dL (65-110); Potassium 4.5 mmol/L (3.4-5.0); Sodium 134 mmol/L (137-145); Total Protein 7.0 g/dL (6.3-8.2)
[2024-11-05 14:00] VITALS: BP 119/52; PULSE 63; RESP 18; TEMP 36.9; O2SAT 97
[2024-11-05] MEDS: SENNA/DOCUSATE SODIUM TABLET 2 TAB PO (17:02)
[2024-11-05 20:00] VITALS: PULSE 71; RESP 202; O2SAT 96
[2024-11-05 21:19] VITALS: BP 148/56; PULSE 71; RESP 202; TEMP 36.2; O2SAT 96
[2024-11-05] MEDS: oxyCODONE/ACETAMINOPHEN (*CRX) 10-325 MG TABLET 1 TAB PO (22:30)
[2024-11-06 05:29] VITALS: BP 118/50; PULSE 71; RESP 20; TEMP 36; O2SAT 96
[2024-11-06] MEDS: LEVOTHYROXINE SODIUM 50 MCG TABLET PO (05:43)
[2024-11-06] MEDS: HYDROcodone/acetaminophen (*CRX) 5-325 MG TABLET 1 TAB PO ×2 (08:28→13:58)
[2024-11-06] MEDS: CELECOXIB 200 MG CAPSULE PO (08:30)
[2024-11-06] MEDS: ENOXAPARIN 40 MG/0.4 ML SYRINGE SUB-Q (08:30)
[2024-11-06] MEDS: MAGNESIUM OXIDE 200 MG TABLET PO (08:30)
[2024-11-06] MEDS: MULTIVITAMINS THERAPEUTIC TAB (*BKC) 1 TABLET PO (08:30)
[2024-11-06] MEDS: SENNA/DOCUSATE SODIUM TABLET 2 TAB PO (08:30)
[2024-11-06] MEDS: FAMOTIDINE 20 MG TABLET PO (08:30)
--- NOTE | 2024-11-06 11:32 | P.DS_ITS ---
DS: Admitting Diagnosis Discharge Date 11/06/2024 Admitting Diagnosis Left wrist fracture, left hip fracture DS: Discharge Diagnosis Discharge Diagnosis (1) Fracture, intertrochanteric, left femur: Qualifiers: Encounter type: initial encounter Fracture alignment: displaced Fracture type: closed Qualified Code(s): S72.142A - Displaced intertrochanteric fracture of left femur, initial encounter for closed fracture Code(s): S72.142A - Displaced intertrochanteric fracture of left femur, initial encounter for closed fracture Status: Acute (2) Fracture, radius, distal: Qualifiers: Encounter type: initial encounter Fracture morphology: unspecified fracture morphology Fracture type: closed Laterality: left Qualified Code(s): S52.502A - Unspecified fracture of the lower end of left radius, initial encounter for closed fracture Code(s): S52.509A - Unspecified fracture of the lower end of unspecified radius, initial encounter for closed fracture Status: Acute (3) Fracture of styloid process of left ulna: Qualifiers: Encounter type: initial encounter Fracture alignment: displaced Fracture type: closed Qualified Code(s): S52.612A - Displaced fracture of left ulna styloid process, initial encounter for closed fracture Code(s): S52.612A - Displaced fracture of left ulna styloid process, initial encounter for closed fracture Status: Acute (4) Hypothyroidism: Qualifiers: Hypothyroidism type: unspecified Qualified Code(s): E03.9 - Hypothyroidism, unspecified Code(s): E03.9 - Hypothyroidism, unspecified Status: Chronic DS: Summary Hospital Course Reason for hospitalization: Left wrist fracture, left hip fracture Hospital Course: Admission: 74 y/o F with PMH of hypothyroidism and anxiety presents here with a fall. The patient presents here from home via EMS for further evaluation of left wrist and left hip pain s/p fall. The patient reports she was standing on a chair souleymane nging a light bulb when she lost her balance and fell onto her left side. She reports pain to her left wrist and left hip post fall. She was unable to ambulate afterwards. She denies a head strike or loss of consciousness. Post fall she denies neck pain, headache, dizziness, focal weakness, focal numbness, nausea, or vomiting. She is not on chronic anticoagulation. Per chart review, the patient has a orthopedic history significant for a mildly displaced greater tuberosity fracture of the left shoulder in November of 2023. Patient was treated non operatively. Initial VS at presentation: 97.6? F, HR 54, RR 16, 04/03/2056, and 96% on 3L nasal cannula. ED workup showed: WBC 10.8, no anemia, sodium 136, creatinine 0.58 and glucose 116. Femur XR showed a mildly displaced intratrochanteric fracture of the proximal left femur, questionable nondisplaced subcapital fracture of the left femoral head, oblique lucency in the proximal left tibia. Hip/pelvic XR showed a mildly displaced intratrochanteric fracture of the proximal left femur, questionable nondisplaced subcapital fracture left femoral head. Wrist XR (L) showed an acute displaced fracture of the distal radius with posterior displacement of the distal fracture segment, minimally displaced fracture of the ulnar styloid process, surrounding soft tissue swelling, joint space narrowing, subchondral sclerosis, subchondral cyst formation and osteophyte formation. CXR showed no acute process. Head CT showed no evidence of acute intracranial hemorrhage or capillary fracture, chronic findings. Pelvic CT showed minimally displaced intratrochanteric fracture of the left femur with mild anterior angulation. Knee XR (L) showed no fracture. Hospital Course: patient was admitted to the medical unit with consult to Orthopedics patient underwent a ORIF of her left wrist and a insertion gamma magi to her left hip. patient had PT/OT evaluation at which time they had recommended [facility] postprocedure for acute rehab patient continued to progress as expected while pending insurance authorization. Patient was continued with pain control Lovenox for DVT prophylaxis and bowel regimen. Labs and vitals remained within desired ranges during your hospitalization patient continued to progress with physical and occupational therapy to a point where she was able to discharge home with home health rather than having to go to an acute rehab while waiting on insurance authorization. patient was discharged home with and educated giving herself Lovenox shots she will have a follow-up with Orthopedics postop 2 weeks. Status at Discharge Functional status at discharge: uses cane/walker Overall status at discharge: patient is progressing back to baseline Time Spent with Patient Time attestation: Total time spent providing and/or coordinating discharge services: Time spent: Greater than 30 minutes Exam Const: General: comfortable and no acute distress Other: , female, elderly, nontoxic appearance HENMT: Face/Nose/Sinus: Normal nares present Mouth: Yes moist mucous membranes Eyes: General: appearance normal, both eyes and all related structures Sclera: sclerae normal Pupils: Equal, round and reactive pupils present EOM: EOMs intact bilaterally Resp: Effort & Inspection: normal respiratory effort Auscultation: clear to auscultation bilaterally Other: Nasal cannula place, tolerating well Cardio: Rate: regular rate Rhythm: regular rhythm Other: S1-S2 present without murmur, rub, ectopy GI: Other: Abdomen soft, nondistended, nontender. Normoactive bowel sounds in all quadrants. Skin: General skin exam: normal color and no rashes or lesions noted Wounds: no wounds Neuro: Cranial nerves: Yes Equal, round and reactive pupils present Speech: normal speech Sensory Exam: normal sensation Other: A&O x4. Extrem: Other: Cap refill brisk in the left upper extremity. Left lower extremity remains warm and pulses intact. No edema noted. Psych: Mental Status: mental status grossly normal Affect: normal affect Other: Good insight and judgment, pleasant DS: Data Data Completed and Pending Labs on day of discharge: Labs from last 24 hours 11/05/24 12:38 WBC 7.4 RBC 3.64 L Hgb 11.3 L Hct 33.8 L MCV 92.9 MCH 31.0 MCHC 33.4 RDW 12.6 Plt Count 210 MPV 9.1 Sodium 134 L Potassium 4.5 Chloride 102 Carbon Dioxide 26 Anion Gap 6 BUN 12 Creatinine 0.59 L Estim Creat Clear Calc 58 Estimated GFR > 60 Glucose 112 H Calcium 9.2 Total Bilirubin 0.9 AST 43 H ALT 35 Alkaline Phosphatase 79 Total Protein 7.0 Albumin 3.9 Imaging Radiologist's impression: Radiology Results: ITS Impressions Femur X-Ray 10/28/24 12:32 IMPRESSION: 1. Mildly displaced intertrochanteric fracture of the proximal left femur. Consider a CT for further assessment. 2. Questionable nondisplaced subcapital fracture of the left femoral head. A CT is recommended for further assessment. 3. Oblique lucency in the proximal left tibia. Differential includes vascular channel or acute nondisplaced fracture. Correlate for point tenderness. Consider dedicated x-rays of the left knee for further assessment. Hip/Pelvis X-Ray 10/28/24 12:33 IMPRESSION: 1. Mildly displaced intertrochanteric fracture of the proximal left femur. Consider a CT for further assessment. 2. Questionable nondisplaced subcapital fracture of the left femoral head. A CT is recommended for further assessment. Chest X-Ray 10/28/24 12:36 IMPRESSION: No acute process. Head CT 10/28/24 13:14 IMPRESSION: 1. No evidence for acute intracranial hemorrhage or calvarial fracture. 2. Chronic findings, as above. Pelvis CT 10/28/24 13:18 IMPRESSION: Minimally displaced intertrochanteric fracture of the left femur with mild anterior angulation. Knee X-Ray 10/28/24 13:33 IMPRESSION: 1. No fracture identified. Wrist X-Ray 10/28/24 15:29 IMPRESSION: 1. Fractures of the left radius and left ulna as detailed above. Intraoperative X-Ray 10/30/24 17:10 IMPRESSION: 1. Fluoroscopy utilized during internal fixation of an extra articular fracture of the distal left radius which is now in near-anatomic alignment. 2. Unfixed ulnar styloid avulsion fracture which remains in essentially anatomic alignment. Discharge Plan Discharge Attending physician on discharge: Bang Nguyễn Consulting providers: Ronny Patel; Beba Dennison; Kellie Sharma Discharging Clinician: Kellie Sharma Anticipated Discharge Date/Time: 11/06/24 11:31 Patient Disposition: Home with Home Health Service Activity: may shower and no driving Diet: as tolerated Wound Care Instructions: follow printed instructions Discharge Instructions: Care Coordination: Patient to have [facility] for PT/OT eval and treat, and prison. Their phone number is [phone], if you have any questions. They will contact you to schedule their visits. Postoperative Hip Fracture Instructions Dr. Ronny Patel [phone] * Dressing to be changed daily with an island dressing beginning on post op day #2. May stop dressing changes at post op day #14. Carlos to be removed on post op day #14 * Weight bearing: Weight bearing as tolerated. * You may shower with your dressing but do not submerge in a bath tub. * Do not drive or operate machinery until you are released by your surgeon. * Do not walk without a walker for any reason until you are released by your surgeon. * Continue to apply ice to the hip intermittently for additional pain relief. Protect your skin with a towel or pillow case. * Continue to follow strict hip fracture precautions. * Please contact our office with any questions/concerns regarding your hip at [phone]. * Follow up appointment instructions indicated below. Wrist: * Keep wrist splint clean, dry and intact. * Non-weight bearing LUE. Bowel regiment * May use over the counter Miralax daily and Colace stool Softener Patient Instructions: Antibiotic Form Patient Language: Ivorian Stand Alone Forms: General Discharge Information Follow-up/Referrals: Ronny Patel MD [Physician, Orthopedics] - 11/19/24 1:15 pm Discharge Medications: New enoxaparin [Lovenox] 40 mg/0.4 mL Syringe 40 mg subcut DAILY 28 Days Qty: 11.2 0RF hydrocodone-acetaminophen 5-325 mg Tablet 1 tablet PO Q4H PRN (Reason: pain) Qty: 30 0RF Continued Centrum Multivitamin k2-d3 50 mcg 50 mcg PO DAILY levothyroxine 50 mcg capsule 50 mcg PO DAILY Qty: 90 1RF magnesium 200 mg tablet 200 mg PO DAILY Date of admission: 10/28/24 17:28 Primary Care Provider: Ashley Wolf Admitting Provider: Lian Vega Attending physician on admission: Lian Vega Condition: Stable Quality VTE Prophylaxis VTE prophylaxis: mechanical ordered and pharmacologic ordered -Patient's previous records reviewed on admission -ER notes reviewed in detail on admission -discussed all findings and current treatment plan with patient/Family/POA -Consultations reviewed for recommendations -Patient's disposition for safe discharge discussed with caseworker Dictation performed by [employer] direct speech recognition software, therefore pulp mill team leader variants and typographical errors may occur. Hospitalist MIPS Heart Failure (Exclusion) Patient has history of Heart Transplant or Left Ventricular Assistive Device?: No IF YES, STOP HERE Heart Failure (Qualifier) Patient has current or prior documentation of LVEF less than or equal to 40%, or mod/servere depressed LVSF?: No IF NO, STOP HERE
== END 2024-11-06 14:19 | disposition home health service (06) | DRG 480 ==
LOC: ANHED 12:50 → ANH3MED 16:40
PROVIDERS: Nurse Practitioner; Nurse Practitioner Family; Orthopaedic Surgery; Student in an Organized Health Care Education/Training Program; Admitting Provider Internal Medicine; Emergency Provider Physician Assistant; PCP Family Medicine; Visit Provider Internal Medicine
PROC: 0PSJ04Z Reposition Left Radius with Internal Fixation Device, Open Approach (ICD-10-PCS; CPT 27245; principal; 2024-10-30 12:00)
PROC: 0PSJ04Z Reposition Left Radius with Internal Fixation Device, Open Approach (ICD-10-PCS; CPT 25575; 2024-10-30 12:00)
DX: S52.572A Other intraarticular fracture of lower end of left radius, initial encounter for closed fracture (principal); S72.012A Unspecified intracapsular fracture of left femur, initial encounter for closed fracture; S72.142A Displaced intertrochanteric fracture of left femur, initial encounter for closed fracture; E03.9 Hypothyroidism, unspecified; W07.XXXA Fall from chair, initial encounter; F41.9 Anxiety disorder, unspecified; M19.132 Post-traumatic osteoarthritis, left wrist; Y93.E9 Activity, other interior property and clothing maintenance; Z87.81 Personal history of (healed) traumatic fracture
CPT/HCPCS: 25605; 36415; 70450; 71045; 72192; 73100; 73110; 73502; 73552; 73562; 80048; 80053; 85025; 85027; 85055; 85610; 85730; 86850; 86900; 86901; 96374; 96375; 97110; 97116; 97161; 97165; 97530; 97535; 99199; 99285; J0690; A9270; C1713; G0378; J1100; J1171; J1650; J1885; J2003; J2270; J2405; J2704; J3010; J7030; J7120

== ENCOUNTER 2024-12-16 09:11 | Outpatient (CLI) | payer MEDICARE, SELFPAY ==
--- NOTE | ~2024-12-16 | DEXA_ITS ---
Bone Density Report Name: LENA LAGUNAS Age: 74 Sex: Female Ethnicity: White Date of : 1950 Indication: postmenopausal; screening for osteoporosis; height loss; prior fracture; Referring Provider: JANN GONG Study: Bone densitometry was performed. Exam Date: December 16, 2024 Accession number: [id number] Bone Density: Region BMD T-score Z-score Classification AP Spine(L1-L4) 0.634 -3.8 -1.5 Osteoporosis Femoral Neck (Right) 0.426 -3.8 -1.9 Osteoporosis Total Hip (Right) 0.509 -3.6 -1.9 Osteoporosis World Health Organization criteria for BMD impression classify patients as: Normal (T-score at or above -1.0), Osteopenia (T-score between -1.0 and -2.5), or Osteoporosis (T-score at or below -2.5). 10-year Fracture Risk: FRAX not reported because: Some T-score for Spine Total or Hip Total or Femoral Neck at or below -2.5 Prior hip or vertebral fracture Clinical Information Provided by Patient: Have had a previous hip or vertebral fracture Has had a low trauma fracture Has used the following medications: Vitamin D, Calcium Patient maximum height was 66.0 Menopause Age: 50 Does not regularly consume dairy products Drinks caffeinated beverages Onset of menses at age 15 Number of children 1 Impression: The patient has established osteoporosis, based on the Total Spine T-score and the existence of a prior fracture. The patient has risk factors, including: previous fracture. Discussion: HIGH RISK OF FRACTURE. BONE DENSITY IS UNDESIRABLY LOW AT ONE OR MORE SKELETAL SITES, CONSISTENT WITH POSTMENOPAUSAL OSTEOPOROSIS. This patient's lowest T-score, in a patient who has previously fractured, meets the World Health Organization's (WHO) criteria for severe osteoporosis. In untreated patients, the risk of osteoporotic fracture increases approximately two-fold for each 1.0 SD decrease in T-score. Low bone density is not the only risk factor for fracture; also consider factors such as patient's age, frailty or poor health, risk of falling, risk of injury, previous osteoporotic fracture, family history of osteoporosis, cigarette smoking, low body weight, etc. Not everyone with low bone mineral density has osteoporosis; osteomalacia and other metabolic bone disorders should also be considered. Patients who have osteoporosis should be evaluated for specific diseases and conditions (secondary causes) that may cause or contribute to bone loss. The [place] [employer] Endocrinologists (AACE) and National Osteoporosis Foundation (NOF) recommend pharmacologic intervention for all postmenopausal women with a previous hip or vertebral fracture and a T-score in this range. The patient should follow a healthful lifestyle (good nutrition with adequate calcium and vitamin D, and appropriate weight-bearing exercise). Follow-Up: Consider a repeat BMD and Vertebral Fracture Assessment (VFA) exam in 2 years or sooner if medically necessary, to reassess this patient's status. Reported by: SCARLET on 12/16/2024 9:54:00 AM. Reviewed, dictated and finalized at location A.
== END 2024-12-16 09:12 | disposition home or self-care (01) ==
LOC: ANHFOHIMG 09:16
PROVIDERS: PCP Family Medicine; Visit Provider Family Medicine
DX: M81.0 Age-related osteoporosis without current pathological fracture (principal); Z78.0 Asymptomatic menopausal state
CPT/HCPCS: 77080